=== PATIENT | female | born 1950 | race African-American/Black ===

== ENCOUNTER 2018-11-29 10:13 | Emergency (ER) | payer MEDICARE, MEDICAID ==
[~2018-11-29] VITALS: Ht 165.1 cm; Wt 69.4 kg
[~2018-11-29 10:13] MED LIST: elavil
[2018-11-29 11:11] VITALS: BP 130/62
[2018-11-29] MEDS ORDERED: KETOROLAC TROMETH 30 MG/ML 1ML VIAL IM ONE (11:15)
== END 2018-11-29 12:01 | disposition home or self-care (01) ==
LOC: ER 10:25
DX: S20.212A Contusion of left front wall of thorax, initial encounter (principal); F17.210 Nicotine dependence, cigarettes, uncomplicated; Z90.710 Acquired absence of both cervix and uterus; W18.2XXA Fall in (into) shower or empty bathtub, initial encounter; Y93.89 Activity, other specified; Y92.89 Other specified places as the place of occurrence of the external cause; Y99.8 Other external cause status
CPT/HCPCS: 71101; 96372; 99283; J1885

== ENCOUNTER 2019-05-20 12:15 | Emergency (ER) | payer OTHER, MEDICAID ==
[~2019-05-20] VITALS: Ht 165.1 cm; Wt 71.2 kg
[2019-05-20 12:54] LABS: Hematocrit 38.8 % (36.0-46.0); Hemoglobin 12.8 g/dL (12.2-16.2); Mean Corpuscular Hemoglobin 28.6 pg (28.0-32.0); Mean Corpuscular Volume 86.4 fL (80.0-100.0); Platelet Count (auto) 142 10^3/uL (140-450); White Blood Cell 4.2 10^3/uL (4.4-10.8)
[2019-05-20 12:57] LABS: Band Neutrophils % (manual) 0; Blast Cells 0; Metamyelocytes % 0; Myelocytes % 0; Promyelocytes % 0
[2019-05-20 13:13] LABS: Alanine Aminotransferase 30 U/L (13-56); Albumin 3.4 g/dL (3.4-5.0); Anion Gap 8 (5-15); Aspartate Aminotransferase 41 U/L (15-37); BUN/Creatinine Ratio 13.6; Blood Urea Nitrogen 19 mg/dL (7-18); Calcium 8.6 mg/dL (8.5-10.1); Carbon Dioxide 29 mmol/L (21-32); Chloride 105 mmol/L (98-107); GFR African American 48 mL/min; GFR Non-African American 39 mL/min; Glucose 81 mg/dL (74-106); Sodium 142 mmol/L (136-145)
[2019-05-20 13:15] LABS: Basophils % (manual) 1 (0.0-2.0); Eosinophils % (manual) 6 (0-7); Lymphocytes % (manual) 48 (10.0-50.0); Monocytes % (manual) 12 (0-12); Reactive Lymphocytes 1
[2019-05-20 13:16] LABS: Potassium 2.9 mmol/L (3.5-5.1)
[2019-05-20 13:18] LABS: Alkaline Phosphatase 73 U/L (45-117); Bilirubin, Total 0.8 mg/dL (0.2-1.0); Total Protein 7.5 g/dL (6.4-8.2)
[2019-05-20] MEDS ORDERED: POTASSIUM EFFERVESENT TAB 25 MEQ PO ONE (13:30)
[2019-05-20 18:19] VITALS: BP 140/85
== END 2019-05-20 19:08 | disposition home or self-care (01) ==
LOC: ER 12:15 → EDUNIT# 12:15 → EDBD 12:15 → ER 19:08
DX: S00.03XA Contusion of scalp, initial encounter (principal); F17.210 Nicotine dependence, cigarettes, uncomplicated; Z88.0 Allergy status to penicillin; W19.XXXA Unspecified fall, initial encounter; Y93.89 Activity, other specified; Y92.89 Other specified places as the place of occurrence of the external cause; Y99.8 Other external cause status
CPT/HCPCS: 36415; 70450; 71045; 80053; 84484; 85007; 85027

== ENCOUNTER 2019-11-27 12:59 | Emergency (ER) | payer OTHER, MEDICAID ==
[~2019-11-27] VITALS: Ht 165.1 cm; Wt 71.2 kg
[2019-11-27 17:18] VITALS: BP 144/112
== END 2019-11-27 17:40 | disposition home or self-care (01) ==
LOC: ER 12:59 → EDBD 12:59 → EDUNIT# 12:59 → ER 17:40
DX: M16.12 Unilateral primary osteoarthritis, left hip (principal); F17.210 Nicotine dependence, cigarettes, uncomplicated; Z88.0 Allergy status to penicillin
CPT/HCPCS: 73502; 73700

== ENCOUNTER 2020-01-26 15:25 | Emergency (ER) | payer OTHER, MEDICAID ==
[~2020-01-26] VITALS: Ht 165.1 cm; Wt 77.1 kg
[2020-01-26 15:27] VITALS: BP 140/109
[2020-01-26] MEDS ORDERED: HYDROcodone-ACET 10/325MG TAB PO ONE (19:15)
[2020-01-26] MEDS ORDERED: methylPREDNISolone SOD SUCC 125 MG/2 ML VL IM ONE (20:00)
[2020-01-26] MEDS ORDERED: KETOROLAC TROMETH 60MG/2ML VIAL IM ONE (20:00)
== END 2020-01-26 21:38 | disposition home or self-care (01) ==
LOC: EDBD 15:25 → ER 15:25
DX: G54.4 Lumbosacral root disorders, not elsewhere classified (principal); M54.42 Lumbago with sciatica, left side; G31.9 Degenerative disease of nervous system, unspecified; Z88.0 Allergy status to penicillin; W18.39XA Other fall on same level, initial encounter; Y93.89 Activity, other specified; Y92.89 Other specified places as the place of occurrence of the external cause; Y99.8 Other external cause status
CPT/HCPCS: 70450; 72125; 72192; 93005; 96372; 99285; J1885; J2930

== ENCOUNTER 2020-08-11 13:35 | Emergency (ER) | payer OTHER, MEDICAID ==
[~2020-08-11] VITALS: Ht 170.2 cm; Wt 68.0 kg
[2020-08-11] MEDS ORDERED: ACETAMINOPHEN 325 MG TAB PO ONE (14:15)
[2020-08-11 16:11] VITALS: BP 110/66
== END 2020-08-11 16:05 | disposition home or self-care (01) ==
LOC: EDBD 13:35 → ER 13:35
DX: S16.1XXA Strain of muscle, fascia and tendon at neck level, initial encounter (principal); S00.511A Abrasion of lip, initial encounter; S09.8XXA Other specified injuries of head, initial encounter; F17.210 Nicotine dependence, cigarettes, uncomplicated; Z90.710 Acquired absence of both cervix and uterus; Z88.0 Allergy status to penicillin; W01.0XXA Fall on same level from slipping, tripping and stumbling without subsequent striking against object, initial encounter; Y93.01 Activity, walking, marching and hiking; Y92.89 Other specified places as the place of occurrence of the external cause; Y99.8 Other external cause status
CPT/HCPCS: 70450; 70486; 72125

== ENCOUNTER 2024-09-03 00:50 | Inpatient (IN) | payer OTHER, MEDICARE, MEDICAID ==
[~2024-09-03] VITALS: Ht 160 cm; Wt 63.4 kg
[2024-09-03] VITALS (74 sets, daily range): BP systolic 72–131; BP diastolic 40–100; PULSE 72–134; RESP 11–38; TEMP 88.9–98.6; O2SAT 90–100
[~2024-09-03 00:50] MED LIST changes: +ALPR0.255 PO; +APIX5TAB PO; +ASCO1TAB27 PO; +ASPI-325 PO; +ATOR20TA50 PO; +DOCU-265 PO; +DONE1TAB88 PO; +FURO20TA4 PO; +GABA-1250 PO; +HYDR1TAB97 PO; +LISI20TA56 PO; +MULT-1018 PO; +OXYB5TAB14 PO; +SENN-111 PO; +TOLT1CAP29 PO
--- NOTE | 2024-09-03 01:14 | ED.PDOC ---
SOB-HPI HPI Comments 74-year-old female who came to ER by EMS shortness a breath. Per EMS, patient was picked up at [facility] wherein caregivers noted patient to be short of breath with chest pains. Unsure on how long the patient was short of breath. Was saturating at 90's at 4 lpm. Patient does have history of COPD and Alzheimer dementia Chief Complaint: Shortness of Breath Time Seen by MD: 01:13 Primary Care Provider: MURALI Reviewed notes: [employer] Field Agent Notes Information Source: Patient, Emergency Med Personnel Mode of Arrival: EMS Severity: Moderate Timing: Hours Duration: Since onset Context: At Rest, With Light Exertion PE Risk Factors: None History of: COPD Prehospital treatment: Oxygen Modifying Factors: Nothing Associated Signs and Symptoms: Chest Pain Quality: Aching, Tightness Radiation: No Radiation Location: Substernal Past Medical History PAST MEDICAL HISTORY: Alzheimer, Anxiety, COPD, Dementia, Depression Surgical History: Pt Confused CLIP WRAPPER History: Pt Confused Family History Family History: Pt Confused Social History Smoker: Pt Confused Alcohol: Pt Confused Drugs: Pt Confused Lives In: [facility] Unable to Obtain due to: Altered Mental Status, Dementia Physical Exam General Appearance: No Apparent Distress, Normal HEENT: Normal ENT Inspection, Pharynx Normal, TMs Normal Neck: Full Range of Motion, Non-Tender, Normal, Normal Inspection Respiratory: Chest Non-Tender, Lungs Clear, No Accessory Muscle Use, No Respiratory Distress, Normal Breath Sounds Cardiovascular: No Edema, No JVD, No Murmur, No Gallop, Normal Peripheral Pulses, Regular Rate/Rhythm Breast Exam: Deferred Gastrointestinal: No Organomegaly, Non Tender, No Pulsatile Mass, Normal Bowel Sounds, Soft Genitalia: Deferred Pelvic: Deferred Rectal: Deferred Extremities: No calf tenderness, Normal capillary refill, Normal inspection, Normal range of motion, Non-tender, No pedal edema Musculoskeletal : Apperance: Normal Neurologic: Alert, home health lvn II-XII nml as Tested, No Motor Deficits, Normal Affect, Normal Mood, No Sensory Deficits Cerebellar Function: Normal Reflexes: Normal Skin: Dry, Normal Color, Warm Lymphatic: No Adenopathy Was a procedure done? Was a procedure done?: No Differential Dx Differential Diagnosis: Asthma, Bronchitis, COPD, Myocardial infarction, Pneumonia, Respiratory Distress X-Ray, Labs, Meds, VS Vital Signs Date Time Temp Pulse Resp B/P (MAP) Pulse Ox O2 Delivery O2 Flow Rate FiO2 09/03/24 02:35 89 18 107/79 96 40 09/03/24 01:48 20 96 Bi-Pap+ 40 40 09/03/24 01:48 89 107/79 Facial BiPAP Mask 40 09/03/24 01:01 86 20 106/74 (85) 99 Lab Test 09/03/24 02:30 09/03/24 01:38 09/03/24 01:29 Range/Units Troponin I High Sensitivity 35 *H 39 *H </=34 ng/L White Blood Count 3.2 L 4.4-10.8 10^3/uL Red Blood Count 4.62 4.0-5.20 10^6/uL Hemoglobin 12.1 L 12.2-16.2 g/dL Hematocrit 37.8 36.0-46.0 % Mean Corpuscular Volume 81.8 80.0-100.0 fL Mean Corpuscular Hemoglobin 26.1 L 28.0-32.0 pg Mean Corpuscular Hemoglobin Concent 31.9 L 32.0-36.0 g/dL Red Cell Distribution Width 20.2 H 11.8-14.3 % Platelet Count 92 L 140-450 10^3/uL Mean Platelet Volume 8.9 6.9-10.8 fL Neutrophils (%) (Auto) 78.8 37.0-80.0 % Lymphocytes (%) (Auto) 13.6 10.0-50.0 % Monocytes (%) (Auto) 7.2 0.0-12.0 % Eosinophils (%) (Auto) 0.2 0.0-7.0 % Basophils (%) (Auto) 0.2 0.0-2.0 % Neutrophils # (Auto) 2.5 1.6-8.6 10 ^3/uL Lymphocytes # (Auto) 0.4 0.4-5.4 10 ^3/uL Monocytes # (Auto) 0.2 0-1.3 10 ^3/uL Eosinophils # (Auto) 0 0-0.8 10 ^3/uL Basophils # (Auto) 0 0-0.2 10 ^3/uL Nucleated Red Blood Cells 0.3 % Platelet Estimate Decreased Large Platelets Few Giant Platelets Few Anisocytosis (manual) Slight [place] Cells Few Sodium Level 140 136-145 mmol/L Potassium Level 4.9 3.5-5.1 mmol/L Chloride Level 104 98-107 mmol/L Carbon Dioxide Level 30 20-31 mmol/L Anion Gap 6 5-15 Blood Urea Nitrogen 12 9-23 mg/dL Creatinine 0.84 0.550-1.02 mg/dL Glomerular Filtration Rate Calc 72 >90 mL/min BUN/Creatinine Ratio 14.3 10.0-20.0 Serum Glucose 105 74-106 mg/dL Lactic Acid Level 1.7 0.4-2.0 mmol/L Calcium Level 9.9 8.7-10.4 mg/dL Total Bilirubin 0.9 0.2-1.0 mg/dL Aspartate Amino Transferase (AST) 46 H 13-40 U/L Alanine Aminotransferase (ALT) 27 7-40 U/L Alkaline Phosphatase 92 46-116 U/L B-Type Natriuretic Peptide 82.77 0-100 pg/mL Total Protein 7.5 5.7-8.2 g/dL Albumin 4.1 3.2-4.8 g/dL Blood Gas Specimen Type Venous Blood Gas Sample Site Vbg - n/a Blood Gas Patient Temperature 37.0 Arterial Blood Date Drawn Luis Test N/a Venous Blood pH 7.192 *L 7.320-7.430 Venous Blood pCO2 at Patient Temp 77.2 *H 38.0-54.0 mmHg Venous Blood pO2 at Patient Temp < 36.5 23.0-48.0 mmHg Venous Blood HCO3 29.0 22.0-29.0 mmol/L Venous Blood Base Excess -1.5 -2.0-3.0 mmol/L Blood Gas Liter Flow 3.00 Blood Gas Modality Nasal cannula FiO2 % 32.0 Blood Gas Critical Value Read Back Yes Blood Gas Notified Whom Dr. lomas Blood Gas Notified Time [id number] Blood Gas Notified By Panel Raiser Operator ronnell garcia Current Medications Medications (Trade) Dose Ordered Sig/Blanche Route Start Time Stop Time Status Last Admin Methylprednisolone Sodium Succinate (Solu Medrol) 80 mg ONCE ONCE IV 09/03/24 01:15 09/03/24 01:16 DC 09/03/24 01:15 Albuterol (Ventolin Medneb) 5 mg ONCE ONCE NEB 09/03/24 01:15 09/03/24 01:16 DC 09/03/24 01:55 Ipratropium [place] (Atrovent Medneb) 0.5 mg ONCE ONCE NEB 09/03/24 01:15 09/03/24 01:16 DC 09/03/24 01:54 Time of 1ST Reevaluation: 01:05 Reevaluation 1ST: Unchanged Patient Education/Counseling: Other (Patient has dementia), Pt Unresponsive Family Education/Counseling: No Family Present Sepsis focused exam: focus exam completed (In the initial resuscitation at l east 30 mL/kg of IV crystalloid fluid was NOT given within the first 3 hr due to concerns of fluid overload), time: (0300) Sepsis Sepsis Reasesment Focused Exam Sepsis focused exam: focus exam completed (In the initial resuscitation at least 30 mL/kg of IV crystalloid fluid was NOT given within the first 3 hr due to concerns of fluid overload), time: (030) Orders: Laboratory Tests 09/03/24 01:38: Lactic Acid Level 1.7 Departure 1 Departure Time of Disposition: 03:17 Impression: Primary Impression: Respiratory failure with hypoxia and hypercapnia Additional Impressions: COPD with acute exacerbation Pneumonia Dementia Disposition: ADMITTED INPATIENT Condition: Guarded Discharged With: Self Comments 74F with Acute COPD Exacerbation and Respiratory Failure Chief Complaint: Shortness of breath History of Present Illness: 74-year-old female with known history of COPD and dementia, who presents from her [facility] via [facility] with progressive shortness of breath over the past two days. The patient's symptoms have been worsening despite her usual medications. She was brought to the ED for further evaluation and management of her respiratory symptoms. Review of Systems: Constitutional: Unable to obtain detailed ROS due to dementia Respiratory: Positive for shortness of breath and wheezing All other systems: Limited review due to patient's cognitive status Medications: Unable to obtain complete medication list due to patient's residence at care facility Allergies: No known allergies documented in available records Past Medical History: 1. Chronic Obstructive Pulmonary Disease (COPD) 2. Alzheimer's Dementia 3. Possible cardiac history given elevated troponin Vital Signs: Vital signs not provided in pattern grader cutter Physical Exam: General: Elderly female in respiratory distress Respiratory: Wheezing noted bilaterally in all lung coy Other systems: Limited examination documented Lab Results: CBC: - WBC: 3.2 (Low) - Platelets: 92 (Low) ABG: - pH: 7.192 (Low) - pCO2: 77 (High) Cardiac markers: - Troponin: 39 (Borderline elevated) - BNP: 83 (Normal) Chemistry panel: Unremarkable Imaging and Other Relevant Results: Chest Imaging: - Small left pleural effusion - Left basal opacities concerning for pneumonia Medical Decision Making: Summary Statement: 74-year-old female with history of COPD and dementia presenting with acute respiratory failure, found to have COPD exacerbation complicated by left lower lobe pneumonia. Problem List: 1. Acute COPD exacerbation 2. Respiratory failure with hypoxia and hypercapnia 3. Left lower lobe pneumonia 4. Alzheimer's dementia 5. Leukopenia and thrombocytopenia Differential Diagnosis: COPD exacerbation, Community-acquired pneumonia, Acute heart failure, Pulmonary embolism, Acute coronary syndrome ED Course: Patient received breathing treatments, Solu-Medrol, was started on BiPAP with good tolerance. Initiated on IV antibiotics (Rocephin and azithromycin) for pneumonia. Decision made to admit for further management. Assessment and Plan: 1. Acute COPD Exacerbation with Respiratory Failure: - Continue BiPAP support - Continue systemic steroids (Solu-Medrol) - Scheduled bronchodilator treatments 2. Left Lower Lobe Pneumonia: - Continue IV antibiotics (Ceftriaxone and Azithromycin) - Monitor respiratory status 3. Leukopenia and Thrombocytopenia: - Trend CBC - Consider Hematology consultation if counts remain low 4. Disposition: - Admit to hospital medicine service - Requires intensive monitoring due to respiratory failure Billing Information: ICD-10: J44.1 - COPD with acute exacerbation ICD-10: J96.21 - Acute respiratory failure with hypoxia and hypercapnia ICD-10: J18.9 - Left lower lobe pneumonia ICD-10: G30.9 - Alzheimer's disease, unspecified ICD-10: D69.6 - Thrombocytopenia, unspecified Critical Care Note Critical Care Time?: Yes (35 min-critical care time only) Critical care comment: Shortness of breath Total critical care time: Approximately 36 minutes Due to a high probability of clinically significant, life threatening deterioration, the patient required my highest level of preparedness to intervene emergently and I personally spent this critical care time directly and personally managing the patient. This critical care time included obtaining a history; examining the patient; pulse oximetry; ordering and review of studies; arranging urgent treatment with development of a management plan; evaluation of patient's response to treatment; frequent reassessment; and, discussions with other providers. This critical care time was performed to assess and manage the high probability of imminent, life-threatening deterioration that could result in multi-organ failure. It was exclusive of separately billable procedures and treating other patients. Stability Stability form required: No Heart Score Heart Score: Heart Score Response (Comments) Value History Moderate Suspicious 1 EKG Repolarization Disturb 1 Age >65 2 Risk Factors >3 or Hx ASHD 2 Troponin Normal limit 0 Total 6 I personally scribed for MARGARET LOMAS MD ([email or web address]) on 09/03/24 at 01:14. Electronically submitted by Dieudonne Rodgers ([email or web address]). MARGARET LOMAS MD September 03, 2024 01:14
[2024-09-03] MEDS: methylPREDNISolone SOD SUCC 125 MG/2 ML VL IV ONE (01:15)
[2024-09-03 01:44] LABS: Basophils # (auto) 0 10 ^3/uL (0-0.2); Eosinophils # (auto) 0 10 ^3/uL (0-0.8); Eosinophils % (auto) 0.2 % (0.0-7.0); Lymphocytes # (auto) 0.4 10 ^3/uL (0.4-5.4); Monocytes # (auto) 0.2 10 ^3/uL (0-1.3)
[2024-09-03 01:45] LABS: Basophils % (auto) 0.2 % (0.0-2.0); Hematocrit 37.8 % (36.0-46.0); Hemoglobin 12.1 g/dL (12.2-16.2); Lymphocytes % (auto) 13.6 % (10.0-50.0); Mean Corpuscular Hemoglobin 26.1 pg (28.0-32.0); Mean Corpuscular Hgb Conc. 31.9 g/dL (32.0-36.0); Mean Corpuscular Volume 81.8 fL (80.0-100.0); Monocytes % (auto) 7.2 % (0.0-12.0); Neutrophils # (auto) 2.5 10 ^3/uL (1.6-8.6); Neutrophils % (auto) 78.8 % (37.0-80.0); Nucleated Red Blood Cells % 0.3 %; Platelet Count (auto) 92 10^3/uL (140-450); Red Blood Cells 4.62 10^6/uL (4.0-5.20); Red Cell Distribution Width 20.2 % (11.8-14.3); White Blood Cell 3.2 10^3/uL (4.4-10.8)
[2024-09-03] MEDS: IPRATROPIUM BROM 0.5 MG/2.5ML INH SOL NEB ONE (01:54)
[2024-09-03] MEDS: ALBUTEROL SULF 2.5 MG/0.5ML(0.5%) NEB SOLN NEB ONE (01:55)
--- NOTE | 2024-09-03 02:02 | DVH ---
EXAM: XY CHEST PORTABLE CLINICAL HISTORY: SOB TECHNIQUE: Single AP view of the chest WID: COMPARISON: None FINDINGS: Lines and tubes: None Chest: Cardiomegaly and pulmonary vascular congestion. Calcified plaque projects over the aortic arch. Small left pleural effusion and left basilar opacities. No pneumothorax. The osseous structures are grossly intact. IMPRESSION: 1. Mild cardiomegaly with pulmonary vascular congestion. 2. Small left pleural effusion and left basilar opacities which could reflect atelectasis or pneumoni a
[2024-09-03 02:04] LABS: Alanine Aminotransferase 27 U/L (7-40); Albumin 4.1 g/dL (3.2-4.8); Alkaline Phosphatase 92 U/L (46-116); Anion Gap 6 (5-15); BUN/Creatinine Ratio 14.3 (10.0-20.0); Bilirubin, Total 0.9 mg/dL (0.2-1.0); Blood Urea Nitrogen 12 mg/dL (9-23); Calcium 9.9 mg/dL (8.7-10.4); Carbon Dioxide 30 mmol/L (20-31); Chloride 104 mmol/L (98-107); Glucose 105 mg/dL (74-106); Potassium 4.9 mmol/L (3.5-5.1); Sodium 140 mmol/L (136-145); Total Protein 7.5 g/dL (5.7-8.2)
[2024-09-03 02:15] LABS: Aspartate Aminotransferase 46 U/L (13-40)
[2024-09-03 02:33] LABS: Anisocytosis Slight; Giant Platelets Few; Large Platelets FEW; Platelet Estimate Decreased
[2024-09-03] MEDS: AZITHROMYCIN 500MG/ 250ML 250 ML IV ONE (03:15)
[2024-09-03] MEDS: cefTRIAXone 1GM/50ML D5W 50 ML IV ONE (03:15)
[2024-09-03 03:23] LABS: Base Excess -2.9 mmol/L (-2.0-3.0)
--- NOTE | 2024-09-03 03:24 | ECG ---
[facility] Test Date: 2024-09-03 Test Time: 00:57:20 Pat Name: SIMRAN VEGA Department: ED Room: 0266 Gender: F Proof Passer: JOHNSON : 1950 Requested By: MARGARET LOMAS Order Number: [id number] Reading MD: Nish Bill Measurements Intervals [place] Rate: 97 P: 0 [place]: 0 QRS: 75 QRSD: 95 T: 59 QT: 393 QTc: 500 Interpretive Statements Atrial fibrillation Anterior infarct, old Electronically Signed On 09-06-2024 12:01:02 PDT by Nish Bill Please click the below link to view image of tracing.
[2024-09-03] MEDS ORDERED: DOCUSATE SOD 100 MG CAP PO PRN (03:45)
[2024-09-03] MEDS ORDERED: IPRATROPIUM BROM 0.5 MG/2.5ML INH SOL NEB PRN (03:45)
[2024-09-03] MEDS ORDERED: ONDANSETRON HCL 4 MG/2 ML VIAL IV PRN ×2 (03:45→04:15)
[2024-09-03] MEDS ORDERED: ACETAMINOPHEN 325 MG TAB PO PRN (03:45)
[2024-09-03] MEDS ORDERED: ALBUTEROL SULF 2.5 MG/0.5ML(0.5%) NEB SOLN NEB PRN (03:45)
[2024-09-03] MEDS ORDERED: HYDROcodone-ACET 5/325MG TAB PO PRN (03:45)
[2024-09-03] MEDS ORDERED: ENOXAPARIN SOD 60 MG/0.6 ML SYRINGE SC ONE (04:15)
[2024-09-03] MEDS: CEFEPIME 1GM/ 50ML 50 ML IV ONE (04:15)
[2024-09-03] MEDS: DOXYCYCLINE 100MG/100ML 100 ML IV ONE (04:15)
[2024-09-03] MEDS: PANTOPRAZOLE 40 MG/10 ML VIAL INJ IV ONE (04:15)
--- NOTE | 2024-09-03 04:18 | DVHHP2 ---
History of Present Illness History of Present Illness Patient is 74 years old female with past medical history of COPD, Alzheimer's dementia, anxiety, depression was brought in by EMS from [facility] due to acute hypoxia. Patient with dementia and confused. Information was gathered from chart reviewing and talking to the nursing staff. Patient developed hypoxia yesterday around 4:00 p.m. at the [facility] where she was dysarthric and had short of breath. Patient's history of dementia, baseline not known, on arrival patient was desaturating to 70 recent, patient was put on NC O2 2 L/min, initial VBG revealed respiratory acidosis with hypercapnia. Patient was put on BiPAP. Initial lab workup revealed leukopenia with a WBC 3.2, hemoglobin 12.1, RDW 20.2, thrombocytopenia with platelet 92, trop I 39> 35. D-Dimer- 2.1. Initial VBG revealed pH 7.19, pCO2 77.2, bicarbonate 29, PO2 less than 36, repeat ABG revealed pH 7.28, pCO2 52, PO2 90.1, bicarbonate 24. CXR revealed bilateral pulmonary opacity right> left. EEG atrial fibrillation Review of the details could not be found as patient is confused and also BiPAP. Patient with a history of dementia. 12/04/24-called [place], [place] [phone], no one picked up call Also called patient's next of kin Mayte Henry, s2, did not order picker call, left voice message In the morning patient also talked to patient, patient reported she was feeling short of breath for 1 day. Repeat ABG revealed pH 7.19, pCO2 78.9, PO2 72.9, bicarbonate 29.5. Patient wit h confusion. Patient was intubated Past Medical History COPD, Alzheimer's dementia, anxiety, depression Past Surgical History Patient with confusion details could not be found Past Social History Patient with confusion details could not be found Review of Systems Review of Systems Patient with a confusion details of the other system could not be reviewed Allergies: Coded Allergies: Penicillins (Verified Allergy, Unknown, 11/27/19) Uncoded Allergies: PENICILLIN (Allergy, Unknown, unknown, 11/27/19) Medications Current Medications Medications Dose Ordered Sig/Blanche Route Start Time Stop Time Status Last Admin Dose Admin Methylprednisolone Sodium Succinate 40 mg Q8HR IV 09/03/24 06:00 Albuterol 2.5 mg Q4HPRN PRN NEB 09/03/24 03:45 Ipratropium [place] 0.5 mg Q4HPRN PRN NEB 09/03/24 03:45 Azithromycin 250 ml @ 125 mls/hr DAILY IV 09/03/24 10:00 Sodium Chloride 10 ml Q8HR IV 09/03/24 06:00 Acetaminophen/ Hydrocodone Bitart 1 tab Q4HP PRN PO 09/03/24 03:45 Ondansetron HCl 4 mg Q4HP PRN IV 09/03/24 03:45 Docusate Sodium 100 mg BIDPRN PRN PO 09/03/24 03:45 Acetaminophen 650 mg Q6HP PRN PO 09/03/24 03:45 Sodium Chloride 10 ml Q8HR IV 09/03/24 06:00 Ondansetron HCl 4 mg Q4HP PRN IV 09/03/24 04:15 Cefepime HCl 50 ml @ 12.5 mls/hr Q8HR IV 09/03/24 06:00 UNV Doxycycline Hyclate 100 ml @ 50 mls/hr Q12H IV 09/03/24 04:15 UNV Pantoprazole Sodium 40 mg DAILY IV 09/03/24 10:00 UNV Enoxaparin Sodium 60 mg Q12HR SC 09/03/24 10:00 UNV Exam Vital Signs Vital Signs Date Time Temp Pulse Resp B/P (MAP) Pulse Ox O2 Delivery O2 Flow Rate FiO2 09/03/24 03:26 76 101/71 97 Facial BiPAP Mask 40 09/03/24 03:01 26 Exam General examination- patient with confusion HEENT- PEERLA, no acute nasal discharge Cardiovascular- S1-S2 audible, rate and rhythm regular, no murmur Respiratory-bilateral lung crackles left> right Gastrointestinal-nontender, bowel sound+. Nondistended Musculoskeletal-leg swelling Lower extremity- bilateral leg edema++++ Neurological details could not be assessed due to patient's confusional state Psychiatry- patient with confusion Skin- no acute rash or purpura Labs/Xrays Labs Test 09/03/24 03:18 09/03/24 02:30 09/03/24 01:38 09/03/24 01:29 Range/Units Blood Gas Specimen Type Arterial Blood Gas Sample Site Left radial Blood Gas Patient Temperature 37.0 Arterial Blood Date Drawn [id number] Arterial Blood pH 7.283 L 7.350-7.450 Arterial Blood Partial Pressure CO2 52.4 H 32.0-45.0 mmHg Arterial Blood Partial Pressure O2 90.1 83.0-108.0 mmHg Arterial Blood HCO3 24.2 21.0-28.0 mmol/L Arterial Blood Oxygen Saturation 95.7 94.0-98.0 % Arterial Blood Base Excess -2.9 L -2.0-3.0 mmol/L Arterial Blood Oxyhemoglobin 94.1 94.0-98.0 % Arterial Blood Carboxyhemoglobin 1.1 0.5-1.5 % Arterial Blood Methemoglobin 0.6 0.0-1.5 % Luis Test Yes Blood Gas Total Hemoglobin 11.90 L 12.0-16.0 g/dL Blood Gas Set Respiration Rate 12.0 Blood Gas Modality Mask - bipap FiO2 % 40.0 Blood Gas EPAP 5 Blood Gas IPAP 15 Troponin I High Sensitivity 35 *H </=34 ng/L White Blood Count 3.2 L 4.4-10.8 10^3/uL Red Blood Count 4.62 4.0-5.20 10^6/uL Hemoglobin 12.1 L 12.2-16.2 g/dL Hematocrit 37.8 36.0-46.0 % Mean Corpuscular Volume 81.8 80.0-100.0 fL Mean Corpuscular Hemoglobin 26.1 L 28.0-32.0 pg Mean Corpuscular Hemoglobin Concent 31.9 L 32.0-36.0 g/dL Red Cell Distribution Width 20.2 H 11.8-14.3 % Platelet Count 92 L 140-450 10^3/uL Mean Platelet Volume 8.9 6.9-10.8 fL Neutrophils (%) (Auto) 78.8 37.0-80.0 % Lymphocytes (%) (Auto) 13.6 10.0-50.0 % Monocytes (%) (Auto) 7.2 0.0-12.0 % Eosinophils (%) (Auto) 0.2 0.0-7.0 % Basophils (%) (Auto) 0.2 0.0-2.0 % Neutrophils # (Auto) 2.5 1.6-8.6 10 ^3/uL Lymphocytes # (Auto) 0.4 0.4-5.4 10 ^3/uL Monocytes # (Auto) 0.2 0-1.3 10 ^3/uL Eosinophils # (Auto) 0 0-0.8 10 ^3/uL Basophils # (Auto) 0 0-0.2 10 ^3/uL Nucleated Red Blood Cells 0.3 % Platelet Estimate Decreased Large Platelets Few Giant Platelets Few Anisocytosis (manual) Slight [place] Cells Few Sodium Level 140 136-145 mmol/L Potassium Level 4.9 3.5-5.1 mmol/L Chloride Level 104 98-107 mmol/L Carbon Dioxide Level 30 20-31 mmol/L Anion Gap 6 5-15 Blood Urea Nitrogen 12 9-23 mg/dL Creatinine 0.84 0.550-1.02 mg/dL Glomerular Filtration Rate Calc 72 >90 mL/min BUN/Creatinine Ratio 14.3 10.0-20.0 Serum Glucose 105 74-106 mg/dL Lactic Acid Level 1.7 0.4-2.0 mmol/L Calcium Level 9.9 8.7-10.4 mg/dL Total Bilirubin 0.9 0.2-1.0 mg/dL Aspartate Amino Transferase (AST) 46 H 13-40 U/L Alanine Aminotransferase (ALT) 27 7-40 U/L Alkaline Phosphatase 92 46-116 U/L B-Type Natriuretic Peptide 82.77 0-100 pg/mL Total Protein 7.5 5.7-8.2 g/dL Albumin 4.1 3.2-4.8 g/dL Venous Blood pH 7.192 *L 7.320-7.430 Venous Blood pCO2 at Patient Temp 77.2 *H 38.0-54.0 mmHg Venous Blood pO2 at Patient Temp < 36.5 23.0-48.0 mmHg Venous Blood HCO3 29.0 22.0-29.0 mmol/L Venous Blood Base Excess -1.5 -2.0-3.0 mmol/L Blood Gas Liter Flow 3.00 Blood Gas Critical Value Read Back Yes Blood Gas Notified Whom Dr. paz Blood Gas Notified Time [id number] Blood Gas Notified By Interior Assemblies Installer ronnell garcia Assessment/Plan Assessment/Plan Assessment and plan- Metabolic encephalopathy likely due to pneumonia/acute exacerbation of COPD Sepsis likely due to pneumonia Acute hypoxic respiratory failure likely due to pneumonia/acute exertional COPD Acute pneumonia Gram-positive versus Gram-negative Acute exacerbation of COPD Acute hypoxic hypercapnic respiratory failure NSTEMI likely type 2 likely due to demand lead ischemia Leukopenia under evaluation Thrombocytopenia Atrial fibrillation Bilateral leg edema, rule out DVT/CHF Alzheimer's dementia Depression Anxiety initial VBG revealed respiratory acidosis with hypercapnia. Patient was put on BiPAP. Initial lab workup revealed leukopenia with a WBC 3.2, hemoglobin 12.1, RDW 20.2, thrombocytopenia with platelet 92, Trop I 39> 35. Initial VBG revealed pH 7.19, pCO2 77.2, bicarbonate 29, PO2 less than 36, repeat ABG revealed pH 7.28, pCO2 52, PO2 90.1, bicarbonate 24. CXR revealed bilateral pulmonary opacity right> left. EEG atrial fibrillation D-dimer 2.1 Plan Ordered Doppler study of the lower extremity to rule out DVT-due for DVT Ordered CT angio of chest to rule out pulmonary embolism Ordered D-dimer, TSH, echo 2D Ordered COVID-19, influenza type 1 and type 2 Ordered repeat ABG Ordered repeat chest x-ray Pending UDS, serum alcohol, Ordered blood culture, urine culture, sputum culture, MRSA screening Ordered cefepime and doxycycline Ordered methylprednisolone 40 mg IV b.i.d. Holding Lovenox for now as patient has thrombocytopenia, pending Doppler study of the lower extremity to rule out DVT Ordered nebulization q.4h with albuterol and ipratropium bromide 12/04/24-called [place], [place] [phone], no one picked up call Also called patient's next of kin Mayte Henry, m6, did not order picker call, left voice message In the morning patient also talked to patient, patient reported she was feeling short of breath for 1 day. Repeat ABG revealed pH 7.19, pCO2 78.9, PO2 72.9, bicarbonate 29.5. Patient with confusion. Patient was intubated Goals of care, Code status ; discussed with >15 minutes PUD prophylaxis: Pantoprazole DVT prophylaxis: Patient With thrombocytopenia Plan discussed with Dr. Murcia , nursing staff, Total time spent on patient evaluation, chart review, assessment and plan, discussion discussion >35 minutes Plan discussed with: Other (RN) My Orders Orders - JOELLE COTTO RESIDENT Procedure Category Date Status Time Admit ADMIT 09/03/24 Transmitted 04:02 Code Status CODE 09/03/24 Transmitted 04:02 Sodium Chloride Lock PHA 09/03/24 In Process (Saline Lock Ns) 06:00 Ondansetron Hcl PHA 09/03/24 In Process (Zofran) 04:15 Npo (Nothing By DIET 09/03/24 Transmitted Mouth) Diet Breakfast * Swallow Request ST 09/03/24 Transmitted 04:02 Echo 2d Mode Cardiac US 09/03/24 Logged DOP 04:02 Notify Of Changes HALEY 09/03/24 In Process From Base 04:02 Tool Filer Hand For HALEY 09/03/24 In Process 24 Hours 04:02 Bilat Lower Dvt US 09/03/24 Logged 04:04 D-Dimer LAB 09/03/24 In Process 04:04 Thyroid Stimulating LAB 09/03/24 In Process Hormone 04:04 Magnesium LAB 09/03/24 In Process 04:04 Covid19 Antigen Rosalinda LAB 09/03/24 Logged Rapid Influenza A&B LAB 09/03/24 Logged 04:05 Hiv 1&2 Antibody LAB 09/03/24 Logged 04:05 Chest Xray 1 View XY 09/03/24 Logged 06:00 Urine Bacterial PAIGE 09/03/24 Logged Culture 04:06 Respiratory Culture PAIGE 09/03/24 Logged W/ Gs 04:06 Urinalysis LAB 09/03/24 Logged 04:06 Drug Screen LAB 09/03/24 Logged 04:06 Blood Alcohol LAB 09/03/24 In Process 04:06 Mrsa Screen PAIGE 09/03/24 Logged 04:09 Abg W/ Co-Ox RT 09/03/24 Logged 06:00 Cefepime 1gm/ 50ml PHA 09/03/24 Logged (Maxipime 1gm/50ml) 06:00 Cefepime 1gm/ 50ml PHA 09/03/24 In Process (Maxipime 1gm/50ml) 04:15 Doxycycline PHA 09/03/24 In Process 100mg/100ml 04:15 Doxycycline PHA 09/03/24 Logged 100mg/100ml 04:15 Pantoprazole PHA 09/03/24 Logged (Protonix) 10:00 Pantoprazole PHA 09/03/24 In Process (Protonix) 04:15 Enoxaparin Sodium PHA 09/03/24 Logged (Lovenox) 04:15 Enoxaparin Sodium PHA 09/03/24 Logged (Lovenox) 10:00 Date of Service: September 03, 2024 Billing Provider: HAYLEY MURCIA MD Common Visit Codes: [id number] INP/OBS CARE (HIGH) Secondary Visit Codes: [id number] CARE PLAN 30 MINUTES JOELLE COTTO RESIDENT September 03, 2024 04:18
[2024-09-03] MEDS ORDERED: IPRATROPIUM BROM 0.5 MG/2.5ML INH SOL NEB SCH (04:45)
[2024-09-03] MEDS ORDERED: ALBUTEROL SULF 2.5 MG/0.5ML(0.5%) NEB SOLN NEB SCH (04:45)
[2024-09-03 04:55] LABS: Basophils # (auto) 0 10 ^3/uL (0-0.2); Eosinophils # (auto) 0 10 ^3/uL (0-0.8); Monocytes # (auto) 0.3 10 ^3/uL (0-1.3); Nucleated Red Blood Cells % 0.2 %; White Blood Cell 2.6 10^3/uL (4.4-10.8)
[2024-09-03 04:57] LABS: Basophils % (auto) 0.4 % (0.0-2.0); Eosinophils % (auto) 0.3 % (0.0-7.0); Hematocrit 33.4 % (36.0-46.0); Hemoglobin 10.5 g/dL (12.2-16.2); Lymphocytes # (auto) 0.2 10 ^3/uL (0.4-5.4); Lymphocytes % (auto) 7.5 % (10.0-50.0); Mean Corpuscular Hgb Conc. 31.6 g/dL (32.0-36.0); Mean Corpuscular Volume 82.3 fL (80.0-100.0); Monocytes % (auto) 10.7 % (0.0-12.0); Neutrophils # (auto) 2.1 10 ^3/uL (1.6-8.6); Neutrophils % (auto) 81.1 % (37.0-80.0); Platelet Count (auto) 87 10^3/uL (140-450); Red Blood Cells 4.05 10^6/uL (4.0-5.20); Red Cell Distribution Width 20.2 % (11.8-14.3)
[2024-09-03 05:25] LABS: Alanine Aminotransferase 25 U/L (7-40); Albumin 3.6 g/dL (3.2-4.8); Alkaline Phosphatase 81 U/L (46-116); Anion Gap 6 (5-15); BUN/Creatinine Ratio 15.4 (10.0-20.0); Bilirubin, Total 0.8 mg/dL (0.2-1.0); Blood Urea Nitrogen 12 mg/dL (9-23); Calcium 9.4 mg/dL (8.7-10.4); Carbon Dioxide 29 mmol/L (20-31); Chloride 105 mmol/L (98-107); Glucose 102 mg/dL (74-106); Sodium 140 mmol/L (136-145); Total Protein 6.7 g/dL (5.7-8.2)
[2024-09-03 05:37] LABS: Folate (Folic Acid) 38.61 ng/mL (>5.38)
[2024-09-03 05:37] LABS: Aspartate Aminotransferase 40 U/L (13-40)
[2024-09-03 05:44] LABS: COVID19 ANTIGEN SOFIA FIA NEGATIVE (NEGATIVE); Rapid Influenza A Negative (Negative); Rapid Influenza B Negative (Negative)
[2024-09-03] MEDS ORDERED: SODIUM CHLOR 0.9% PF (SALINE LOCK) 10ML VIAL/SYR IV SCH (06:00)
[2024-09-03] MEDS: SODIUM CHLOR 0.9% PF (SALINE LOCK) 10ML VIAL/SYR IV SCH (06:00)
[2024-09-03] MEDS ORDERED: methylPREDNISolone SOD SUCC 40 MG/ML VL IV SCH (06:00)
--- NOTE | 2024-09-03 07:05 | DVH ---
EXAM: US Duplex Bilateral Lower Extremities Veins CLINICAL INDICATION: BI LATERAL LEG SWELLING TECHNIQUE: Real-time duplex ultrasound scan of the bilateral lower extremity veins integrating B-mod e two-dimensional vascular structure, Doppler spectral analysis, color flow Doppler imaging and compr ession. COMPARISON: None FINDINGS: RIGHT DEEP VEINS: Unremarkable. No DVT in the right common femoral, femoral, proximal deep femoral or popliteal veins. The veins demonstrate normal color flow, are normally compressible, with normal phasic flow and/or augmentation response. RIGHT SUPERFICIAL VEINS: Unremarkable. No thrombus in the visualized right great saphenous vein. LEFT DEEP VEINS: Unremarkable. No DVT in the left common femoral, femoral, proximal deep femoral o r popliteal veins. The veins demonstrate normal color flow, are normally compressible, with normal p hasic flow and/or augmentation response. LEFT SUPERFICIAL VEINS: Unremarkable. No thrombus in the visualized left great saphenous vein. SOFT TISSUES: No acute findings. No popliteal cyst. OTHER FINDINGS: . IMPRESSION: No DVT.
[2024-09-03 07:12] LABS: Base Excess -0.6 mmol/L (-2.0-3.0)
[2024-09-03] MEDS: ROCURONIUM 10MG/ML 10ML VIAL IV ONE ×3 (07:27→07:40)
[2024-09-03] MEDS: ETOMIDATE (2MG/ML) 20ML VIAL IV ONE ×3 (07:27→07:34)
[2024-09-03] MEDS: IPRATROPIUM BROM 0.5 MG/2.5ML INH SOL NEB SCH ×2 (07:31→11:52)
[2024-09-03] MEDS: ALBUTEROL SULF 2.5 MG/0.5ML(0.5%) NEB SOLN NEB SCH (07:31)
[2024-09-03] MEDS: fentaNYL Drip 2500mCg/250mlNS 250 ML IV ONE (07:31)
[2024-09-03] MEDS: NOREPINEPHRINE 8 MG/250ML KIT 250 ML IV ONE (07:32)
[2024-09-03] MEDS: MIDAZOLAM DRIP 50 mg/50mL 50 ML IV ONE (07:32)
[2024-09-03] MEDS: MIDAZOLAM DRIP 50 mg/50mL 50 ML IV SCH (07:41)
[2024-09-03] MEDS: NOREPINEPHRINE 8 MG/250ML KIT 250 ML IV SCH (08:00)
[2024-09-03] MEDS: fentaNYL Drip 2500mCg/250mlNS 250 ML IV SCH (08:00)
[2024-09-03] MEDS: PROPOFOL 100 ML IV SCH (08:00)
[2024-09-03] MEDS: PHENYLEPHRINE IV 250 ML IV SCH (08:00)
--- NOTE | 2024-09-03 08:42 | DVH ---
CLINICAL INFORMATION: Congestive heart failure. TECHNIQUE: Single AP portable chest radiograph was obtained. COMPARISON: XY CHEST PORTABLE on DOS: 09/03/24 FINDINGS: Interval intubation, with the endotracheal tube distal tip approximatelyr 4.5 cm above the level of t he pancho. Distal tip of the enteric tube reaches the stomach, although the proximal fenestration of the enteric tube is at the level of the distal esophagus. Right internal jugular central venous rell ter reaches the distal SVC. Small left pleural effusion with overlying atelectasis and/or consolidati on. Likely small right pleural effusion. Unchanged cardiomegaly and slightly increased prominence of the pulmonary vasculature. No pneumothorax visualized, although portions of the lung apices are not c ompletely imaged within the [id number] of the exam. Overlying defibrillator pads are noted. IMPRESSION: 1. Satisfactory positioning of the endotracheal tube and right internal jugular central venous cathet er. 2. The proximal fenestration of the enteric tube is at the level of the distal esophagus, recommend a dvancement of the enteric tube by approximately 7 cm. 3. Small left pleural effusion with overlying atelectasis and/or consolidation and likely small right pleural effusion. 4. Cardiomegaly and prominence of the pulmonary vasculature.
[2024-09-03] MEDS: MAGNESIUM SULFATE 1GM/100ML 100 ML IV SCH (09:00)
[2024-09-03 09:23] LABS: Base Excess 1.1 mmol/L (-2.0-3.0)
[2024-09-03 09:49] LABS: Basophils # (auto) 0 10 ^3/uL (0-0.2); Eosinophils # (auto) 0 10 ^3/uL (0-0.8); Hematocrit 33.9 % (36.0-46.0); Lymphocytes # (auto) 0.1 10 ^3/uL (0.4-5.4); Monocytes # (auto) 0.2 10 ^3/uL (0-1.3); Neutrophils % (auto) 90.3 % (37.0-80.0); White Blood Cell 3.3 10^3/uL (4.4-10.8)
[2024-09-03 09:50] LABS: Alanine Aminotransferase 27 U/L (7-40); Albumin 3.6 g/dL (3.2-4.8); Alkaline Phosphatase 84 U/L (46-116); Anion Gap 10 (5-15); BUN/Creatinine Ratio 17.5 (10.0-20.0); Basophils % (auto) 0.9 % (0.0-2.0); Blood Urea Nitrogen 14 mg/dL (9-23); Calcium 10.1 mg/dL (8.7-10.4); Carbon Dioxide 25 mmol/L (20-31); Chloride 104 mmol/L (98-107); Glucose 97 mg/dL (74-106); Lymphocytes % (auto) 3.1 % (10.0-50.0); Magnesium 1.9 mg/dL (1.6-2.6); Mean Corpuscular Hemoglobin 26.1 pg (28.0-32.0); Mean Corpuscular Hgb Conc. 32.4 g/dL (32.0-36.0); Mean Corpuscular Volume 80.6 fL (80.0-100.0); Monocytes % (auto) 5.7 % (0.0-12.0); Nucleated Red Blood Cells % 0.3 %; Potassium 5.1 mmol/L (3.5-5.1); Red Cell Distribution Width 19.7 % (11.8-14.3); Sodium 139 mmol/L (136-145); Total Protein 6.7 g/dL (5.7-8.2)
[2024-09-03 09:51] LABS: Bilirubin, Total 0.9 mg/dL (0.2-1.0)
[2024-09-03 10:00] LABS: Platelet Count (auto) 89 10^3/uL (140-450)
[2024-09-03] MEDS ORDERED: ENOXAPARIN SOD 40 MG/0.4 ML SYRINGE SC SCH (10:00)
[2024-09-03] MEDS ORDERED: AZITHROMYCIN 500MG/ 250ML 250 ML IV SCH (10:00)
[2024-09-03] MEDS ORDERED: FAMOTIDINE (10MG/ML) 2ML VL IV SCH (10:00)
[2024-09-03] MEDS ORDERED: ENOXAPARIN SOD 60 MG/0.6 ML SYRINGE SC SCH (10:00)
[2024-09-03] MEDS ORDERED: VANCOMYCIN PER PHARMACY 0 MG IV SCH (10:00)
[2024-09-03 10:07] LABS: Aspartate Aminotransferase 44 U/L (13-40)
--- NOTE | 2024-09-03 10:19 | ED.PDOC ---
Was a procedure done? Was a procedure done?: Yes Sedation Sedation?: No Central Line Recorder of insertion practice: Observer Occupation of car wash attendant: Other (Resident physician), Name of car wash attendant (Dr Rockwell) Indication: Hypotension Room prepared for procedure: Yes At Home Independent Call Center Agent performed hand hygien: Yes Maximal sterile barrier precau: Mask/Eye shield, Sterile gown, Cap, Sterlie gloves, Large sterlie drape Skin Preparation: Chlorhexidine gluconate Skin preparation completely dr: Yes Insertion site: Right, Internal jugular Central line catheter type: [id number] dialysis Number of lumens: 3 Central line exchanged over a: Yes Antiseptic ointment applied to: Yes Post Assessment: Chest X-Ray, Proper placement, No Pneumothorax Informed consent obtained: No Risks/benefits/alt described: No Intubation Indication: Respiratory Insufficiency, Altered Mental Status Prep: Preoxygenation Pretreated with: Other (Etomidate) Medicated with: Other (Rocuronium) Intubation Approach: Orotracheal Intubation size: cm (8) Informed consent obtained: No Risks/benefits/alt described: No Notes Patient was acutely decompensating, hypoxic tachypneic and in acute respiratory failure.. I was called to the floor. I performed intubation and central line placement with Dr. ROCKWELL, resident physician. ERICA COSTA MD September 03, 2024 10:19
[2024-09-03 10:20] LABS: Lactic Acid w/Reflex 2.2 mmol/L (0.4-2.0)
[2024-09-03] MEDS: methylPREDNISolone SOD SUCC 40 MG/ML VL IV SCH (10:41)
[2024-09-03] MEDS: FUROSEMIDE 100 MG/10ML VIAL IV ONE (10:41)
[2024-09-03] MEDS: VANCOMYCIN 1GM/200ML PM 200 ML IV ONE (10:42)
[2024-09-03 11:37] LABS: Urine Bacteria None Seen /hpf (None Seen)
[2024-09-03] MEDS: LEVALBUTEROL HCL 1.25 MG/3 ML NEB NEB SCH (11:52)
[2024-09-03 11:53] LABS: Urine Blood Negative /uL (Negative); Urine Clarity Turbid (Clear); Urine Color Yellow (Yellow); Urine Hyaline Cast MOD /lpf (0 - 2); Urine Mucus FEW (None Seen); Urine Protein, UAD TRACE (Negative); Urine Specific Gravity 1.013 (1.001-1.035); Urine Squamous Epithelial Cell FEW /hpf (<5); Urine Urobilinogen Normal (Negative); Urine WBC 1 /HPF (0-5); Urine pH 8.5 (5.0-9.0)
[2024-09-03 11:59] LABS: Cannabinoid Screen, Urine Pos (NEGATIVE); Phencyclidine Screen, Urine Neg (NEGATIVE)
[2024-09-03 12:11] LABS: Amphetamine Screen, Urine Neg (NEGATIVE); Barbiturate Scree,Urine Neg (NEGATIVE); Benzodiazephine Screen, Urine Pos (NEGATIVE); Cocaine Screen, Urine Neg (NEGATIVE); Opiate Scree,Urine Pos (NEGATIVE)
[2024-09-03 12:39] LABS: Base Excess 1.7 mmol/L (-2.0-3.0)
[2024-09-03] MEDS: IOHEXOL 350 MG/ML 100ML IJ ONE (13:35)
--- NOTE | 2024-09-03 14:13 | DVHPNRES ---
Progress Note Date Seen: September 03, 2024 Resident Creating Document: KATHRYN ATKINS RESIDENT Medical Necessity Reason Pt with a Central, PICC or Fol: Yes The following are medically ne: Central Line, Ware Catheter Subjective Review of Systems This is a 74-year-old female with past medical history of COPD on home oxygen 2- 3 L, Alzheimer's dementia, anxiety, depression was brought in by EMS from [facility] due to acute hypoxia. Patient has baseline dementia and confused. Information was gathered from chart reviewing and talking to the nursing staff. According to the staff the patient developed respiratory distress and become hypoxic around 4:00 p.m. at the [facility] was desaturating to 70s and called the EMS . In the ED patient was also desaturating to 70s put on nasal cannula that did not relieved the hypoxia and started on BiPAP the patient was overnight BiPAP and in the morning ABG revealed severe respiratory acidosis, patient became more altered and was not able to maintain the airway and emergency intubation was done. Family was contracted before intubation but could not reach the family and emergency intubation was done to save the patient. Patient was seen and examined on the bedside. The patient is on mechanical ventilation with FiO2 50%, tidal volume 450 mL, peep 5 and respiratory rate 12. Objective vital signs Vital Sign Date Time Temp Pulse Resp B/P (MAP) Pulse Ox O2 Delivery O2 Flow Rate FiO2 09/03/24 13:36 30 09/03/24 13:36 83 09/03/24 13:36 12 100 Mechanical Ventilator+ 09/03/24 13:30 89.6 90/65 (73) 193.3 09/03/24 01:30 4 medications Current Medications Medications Dose Ordered Sig/Blanche Route Start Time Stop Time Status Last Admin Dose Admin Acetaminophen/ Hydrocodone Bitart 1 tab Q4HP PRN PO 09/03/24 03:45 Acetaminophen 650 mg Q6HP PRN PO 09/03/24 03:45 Sodium Chloride 10 ml Q8HR IV 09/03/24 06:00 09/03/24 13:39 10 ML Ondansetron HCl 4 mg Q4HP PRN IV 09/03/24 04:15 Cefepime HCl 50 ml @ 12.5 mls/hr Q12HR IV 09/03/24 22:00 Pantoprazole Sodium 40 mg DAILY IV 09/04/24 10:00 Methylprednisolone Sodium Succinate 40 mg BID IV 09/03/24 10:00 09/03/24 10:41 40 MG Norepinephrine Bitartrate 250 ml @ 3.75 mls/hr Q24H IV 09/03/24 08:00 09/03/24 08:00 3.75 MLS/HR Phenylephrine HCl 250 ml @ 30 mls/hr Q8H20M IV 09/03/24 08:00 Propofol 100 ml @ 1.908 mls/ hr Q24H IV 09/03/24 08:00 Midazolam HCl 50 ml @ 1 mls/hr Q24H IV 09/03/24 08:00 09/03/24 07:41 1 MLS/HR Fentanyl Citrate 250 ml @ 2.5 mls/hr Q24H IV 09/03/24 08:00 Furosemide 40 mg BIDD IV 09/03/24 18:00 Vancomycin HCl 0 ml @ 0 mls/hr UD IV 09/03/24 10:00 Levalbuterol HCl 1.25 mg Q6HR NEB 09/03/24 12:00 09/03/24 11:52 1.25 MG Ipratropium Hollis 0.5 mg Q6HR NEB 09/03/24 12:00 09/03/24 11:52 0.5 MG Vancomycin HCl 150 ml @ 150 mls/hr Q12H IV 09/03/24 23:00 Examination General: RASS -3, afebrile, mucosae are moist Cardiovascular: Normal S1 and S2. No murmurs, gallops or rubs Respiratory: Mechanically assisted ventilation, equal bilateral airway entree. Bilateral wheezing and coarse crackles. Abdomen: Soft, nontender, no organomegaly, normal bowel sounds MSK/skin: Mobilization of limbs cannot be evaluated. Skin is dry and warm. Neurological: Orientation cannot be assessed. No apparent motor no sensitive deficits. Pupils are isocoric and reactive laboratory and microbiology Laboratory Tests 09/03/24 09:02 Test 09/03/24 09:02 Range/Units Serum Glucose 97 74-106 mg/dL Labs and/or images reviewed: Labs reviewed by me, Image(s) reviewed by me Problem List/Assessment/Plan Problem List/Assessment/Plan Assessment and plan: NEURO: Acute hypercapnic encephalopathy carbon dioxide narcosis H/O of Alzheimer's dementia - on mechanical ventilation with FiO2 50%, peep 5, respiratory rate 12 and tidal volume 450 mL RASS score: -3 CARDIOVASCULAR: Possible chronic diastolic heart failure NSTEMI type 2 likely secondary to supply/demand mismatch Paroxysmal atrial fibrillation with secondary hypercoagulable state History of coronary artery disease - EKG showed atrial fibrillation, old anterior infarct - CXR showed cardiomegaly with mild pulmonary vascular congestion - BNP is normal - pending echo - IV Lasix 40 mg b.i.d. PULMONARY: Acute hypercapnic/ hypoxic respiratory failure Acute exacerbation of chronic COPD Possible Gram-positive/Gram-negative community-acquired pneumonia Possible aspiration pneumonia Sepsis due to pneumonia Rule out pulmonary embolism Mild left-sided pleural effusion - CXR showed Mild cardiomegaly with pulmonary vascular congestion. Small left pleural effusion and left basilar opacities which could reflect atelectasis or pneumonia - pending CT angio - COVID, flu are negative and pending MRSA - IV methylprednisolone 40 mg b.i.d. - IV Lasix 40 mg b.i.d. - med neb with levalbuterol and ipratropium q.6 hours - IV vancomycin as per pharmacy and IV cefepime 1 g q.12 hours - Pending blood culture, urine bacterial culture and sputum culture GASTROINTESTINAL: Transaminitis likely due to sepsis GENITOURINARY: UDS is positive for opioids, benzodiazepines and cannabinoids Plasma alcohol is more than 5.8 ENDOCRINE: Hyperglycemia likely due to steroid induced HEME: Leukopenia likely due to sepsis Chronic mild normocytic anemia likely due to anemia of chronic disease INFECTIOUS DISEASE: Sepsis due to pneumonia Leukopenia, hypothermia and lactic acidosis likely secondary to sepsis Possible aspiration pneumonia Community-acquired Gram-positive/Gram-negative pneumonia - Pending blood culture, urine bacterial culture and sputum culture - IV vancomycin as per pharmacy and IV cefepime 1 g q.12 hours MUSCULOSKELETAL: Ruled out DVT Possible Lymphedema of bilateral lower limb DIET: NPO DVT prophylax: Lovenox GI prophylaxis: Protonix Bowel regimen: Code status: Full code LINES/DRAINS/ACCESS: Right IJ triple-lumen catheter placed on 09/03/2024 ETT: Intubated on 09/03/2024 IV access: Drips: Fentanyl Ware catheter: Placed on 09/02/2024 DISPOSITION: KWAME Patient's status discussed with family Critical care time spent more than 81 minutes, including patient care, chart review, and updating the family. Excluding any procedures. Case discussed with Dr. Davila Plan discussed with: Patient, Other My Orders My Orders Orders - KATHRYN ATKINS Procedure Category Date Status Time Vancomycin Per PHA 09/03/24 In Process Pharmacy 10:00 Levalbuterol Hcl PHA 09/03/24 In Process (Xopenex Medneb) 12:00 Ipratropium Medneb PHA 09/03/24 In Process (Atrovent Medneb) 12:00 Vancomycin PHA 09/03/24 In Process 750mg/150ml 23:00 Vancomycin,Trough LAB 09/04/24 Verified 22:00 Vancomycin Per [facility] 09/04/24 In Process Pharmacy Protoc 23:00 KATHRYN ATKINS RESIDENT September 03, 2024 14:13
[2024-09-03 14:52] LABS: Base Excess -0.9 mmol/L (-2.0-3.0)
--- NOTE | 2024-09-03 15:24 | DVH ---
PROCEDURE: CT CT ANGIO CHEST CONTRAST 09/03/2024 02:17 PM INDICATION: RULED OUT PULMONARY EMBOLISM COMPARISON: None TECHNIQUE: Coverage: Thorax IV contrast: Administered Phases: Arterial Multiplanar 3-D Maximum Intensity Projection images (MIP) reconstructions were created by the techntanesha ellis in the coronal and sagittal planes as part of the CT angiography protocol. Adverse events: None Medication laboratory values were reviewed to verify the patient meets criteria for contrast administ ration. All CT scans at this medical facility are performed using dose modulation techniques as appropriate t o a performed exam including the following: Automated exposure control was utilized; adjustment of th e MA and/or KV according to patient size; and use of iterative reconstruction technique. Radiation dose: CTDIvol 8.88 mGy, DLP 386.39 mGy*cm. FINDINGS: Cardiovascular: No evidence of acute or chronic pulmonary emboli identified. The pulmonary arteries a re mildly prominent which may reflect underlying pulmonary arterial hypertension. Aorta is normal in caliber. The heart is moderately enlarged. No pericardial effusion. Coronary artery calcification no ba. Lungs: Moderate right and small left pleural effusions adjacent pulmonary opacities. Scattered ground -glass opacities noted in the bilateral lungs.. No pneumothorax. The airways are patent. The ETT ends above the level of pancho. Thyroid: Unremarkable. Esophagus: Unremarkable. Lymphatics: Mild mediastinal lymphadenopathy measuring up to 1.8 x 1.2 cm in the prevascular space. Bones/soft tissues: No acute abnormality. Mild depression of the superior and inferior endplates of s everal thoracic vertebrae likely related to Schmorl's node formation less than 10% loss of vertebral body height without retropulsion noted. Multilevel degenerative changes of the thoracic spine are not ed. Upper abdomen: No acute abnormality. The enteric tube extends to the stomach. Other: None. IMPRESSION: 1. No evidence of acute pulmonary emboli. 2. Cardiomegaly with evidence of CHF, bilateral pleural effusions and pulmonary edema. The different ial diagnosis for pulmonary opacities include pneumonia. 3. Mild mediastinal lymphadenopathy.
--- NOTE | 2024-09-03 16:02 | DVHNC2 ---
Procedure - Procedure- Bronchoscopy and bronchial washings Indication- Secretions Procedure in detail Consent was obtained and timeout performed per protocol. The patient was placed on 100% FiO2. Olympus bronchoscope was used and passed through the endotracheal tube, tracheobronchial tree was examined. There were no endobronchial lesions however there were signs of traumatic intubation in the trachea and moderate purulent secretions primarily on the right lung that were loosened up with approximately 50 cc of normal saline and thoroughly suctioned into a separate specimen container. There were no endobronchial lesions. After the procedure, the scope was removed. Patient tolerated the procedure well. RICK VARGAS MD September 03, 2024 16:02
[2024-09-03] MEDS: FUROSEMIDE 40 MG/4 ML VIAL IV SCH (17:34)
[2024-09-03] MEDS: CEFEPIME 1GM/ 50ML 50 ML IV SCH (21:33)
[2024-09-03] MEDS ORDERED: DOXYCYCLINE 100MG/100ML 100 ML IV SCH (22:00)
[2024-09-03] MEDS: VANCOMYCIN 750mg/150ml 150 ML IV SCH (23:11)
[2024-09-03] MEDS: AMIODARONE 360mg/200mL PREMIX 200 ML IV ONE (23:21)
[2024-09-04] VITALS (108 sets, daily range): BP systolic 74–111; BP diastolic 42–73; PULSE 64–129; RESP 9–21; TEMP 68–99.5; O2SAT 96–100
--- NOTE | 2024-09-04 00:50 | DVHSR ---
APPROVED REPORT EXAM: Two-dimensional and M-mode echocardiogram with Doppler and color Doppler. Blood Pressure: 110/68 mmHg INDICATION Heart Failure RISK FACTORS Height: 5'3", Weight: 140 DIMENSIONS LVDd4.9 (3.8-5.7cm)LA (2D)5.7 (1.9-4.0cm)Aortic Root2.7 (2.0-3.7cm) LVDs4.1 (2.5-4.0cm)LA (MM) (1.9-4.0cm)Aortic Cusp Exc1.7 (1.5-2.0cm) EF (%) 31.0 (55-70%)Rt. Atrium5.3 (1.9-4.0cm)Asc. Aorta3.1 cm IVSd1.0 (0.7-1.1cm)RV (D)3.6 (1.8-2.4cm) PWd0.9 (0.7-1.1cm) Mitral Valve MitralMitral Stenosis E wave0.97m/sMV Mean GR.mmHg E/A ratio0.02D MVAcm2 Aortic Valve Aortic ValveAortic Stenosis V10.51m/Boris Mean GR.2mmHg V20.89m/Boris Peak GR.3mmHg LVOT Diameter2.2 (1.8-2.4cm)Doppler AVA2.18cm2 Pulmonic Valve V20.42m/s Tricuspid Valve TR Velocity2.18m/s [id number] Conclusion 1. SEVERE GLOBAL LV HYPOKINESIS LV EF IS ONLY 15% 2. DILATED ALL CARDIAC CHAMBERS 3.SIGNIFICANTLY DILATED LA AND RA 4. SEVERE MR AND TR NO EFFUSION IT IS END STAGE DILATED CARDIOMYOPATHY
[2024-09-04] MEDS: DIGOXIN (250MCG/ML) 2 ML AMPULE IV ONE (01:00)
[2024-09-04] MEDS ORDERED: PHENYLEPHRINE IV 250 ML IV SCH (01:00)
[2024-09-04] MEDS: PHENYLEPHRINE IV 250 ML IV ONE (01:09)
[2024-09-04] MEDS: AMIODARONE 360mg/200mL PREMIX 200 ML IV SCH (05:31)
[2024-09-04 05:41] LABS: Basophils # (auto) 0 10 ^3/uL (0-0.2); Eosinophils # (auto) 0 10 ^3/uL (0-0.8); Lymphocytes # (auto) 0.3 10 ^3/uL (0.4-5.4); Monocytes # (auto) 0.6 10 ^3/uL (0-1.3)
[2024-09-04 05:45] LABS: Basophils % (auto) 0.1 % (0.0-2.0); Hematocrit 29.6 % (36.0-46.0); Hemoglobin 9.4 g/dL (12.2-16.2); Lymphocytes % (auto) 2.5 % (10.0-50.0); Mean Corpuscular Hgb Conc. 31.9 g/dL (32.0-36.0); Mean Corpuscular Volume 81.5 fL (80.0-100.0); Monocytes % (auto) 4.5 % (0.0-12.0); Neutrophils # (auto) 11.6 10 ^3/uL (1.6-8.6); Neutrophils % (auto) 92.9 % (37.0-80.0); Nucleated Red Blood Cells % 0.2 %; Platelet Count (auto) 91 10^3/uL (140-450); Red Blood Cells 3.63 10^6/uL (4.0-5.20); Red Cell Distribution Width 19.6 % (11.8-14.3); White Blood Cell 12.5 10^3/uL (4.4-10.8)
[2024-09-04 06:01] LABS: Alanine Aminotransferase 23 U/L (7-40); Albumin 3.3 g/dL (3.2-4.8); Alkaline Phosphatase 72 U/L (46-116); Anion Gap 9 (5-15); Aspartate Aminotransferase 40 U/L (13-40); BUN/Creatinine Ratio 18.6 (10.0-20.0); Blood Urea Nitrogen 18 mg/dL (9-23); Calcium 9.5 mg/dL (8.7-10.4); Carbon Dioxide 27 mmol/L (20-31); Chloride 105 mmol/L (98-107); Glucose 115 mg/dL (74-106); Potassium 4.7 mmol/L (3.5-5.1); Sodium 141 mmol/L (136-145); Total Protein 6.1 g/dL (5.7-8.2)
[2024-09-04 06:02] LABS: Bilirubin, Total 0.7 mg/dL (0.2-1.0)
--- NOTE | 2024-09-04 06:15 | DVH ---
EXAM: XY CHEST PORTABLE Indication: Mechanical ventilation Technique: Single frontal view of the chest was obtained Comparison: XY CHEST XRAY 1 VIEW on DOS: 09/03/24, XY CHEST PORTABLE on DOS: 09/03/24 FINDINGS: Lines and Tubes: Lines and tubes are unchanged. Lungs: Diffuse interstitial opacities. Pleura: Trace bilateral pleural effusions. No pneumothorax. Cardiomediastinal contours: Cardiomegaly. Bones: No acute osseous abnormality. IMPRESSION: No significant change compared to prior exam.
[2024-09-04 06:16] LABS: Giant Platelets Few; Platelet Estimate Decreased
[2024-09-04 06:50] LABS: Base Excess -4.2 mmol/L (-2.0-3.0)
[2024-09-04] MEDS: PANTOPRAZOLE 40 MG/10 ML VIAL INJ IV SCH (08:20)
--- NOTE | 2024-09-04 10:47 | DVHINCON2 ---
Date Seen: September 04, 2024 Referring Physician ROMI Little Reason for Consultation Unstable atrial fibrillation History of Present Illness This is a 74-year-old female who presented to the emergency room via EMS from [facility] facility with a chief complaint of shortness of b reath. Information obtained from records as the patient is currently endotracheally intubated with 30% FiO2 5.0 PEEP, on dual vasopressor, amiodarone drip, and chemically sedated. It appears the patient was found with shortness of breath and associated acute hypoxia with O2 saturations in the 90s at 4 LPM via NC. Arrival to the emergency room, she underwent a 12 lead electrocard iogram revealing an atrial fibrillation rhythm with a heart rate in the 90s bpm. Troponin levels have remained flat in the 30s ng/L. She was initially placed on a BiPAP machine for airway support and subsequently endotracheally intubated given worsening respiratory status. Significant medical history includes unspecified atrial fibrillation on Eliquis, dyslipidemia, COPD with O2 dependence, Alzheimer's dementia, depression, and anxiety. Past Medical History Past medical history reviewed. No other significant than mentioned above. Past Surgical History Unknown past surgical history. Family History: Patient reports no known family medical history. Family History Unknown family history. Social History Unknown social history. Allergies: Coded Allergies: Penicillins (Verified Allergy, Unknown, 11/27/19) Home Meds Reported Medications [elavil] No Conflict Check 10/01/09 Home Meds Home medications reviewed. Current Medications Current Medications Medications (Trade) Dose Ordered Sig/Blanche Route PRN Reason Start Time Stop Time Status Last Admin Cefepime HCl 50 ml @ 12.5 mls/hr Q12HR IV 09/03/24 22:00 09/04/24 08:20 Doxycycline Hyclate 100 ml @ 50 mls/hr Q12HR IV 09/03/24 22:00 09/03/24 09:56 DC Pantoprazole Sodium (Protonix) 40 mg DAILY IV 09/04/24 10:00 09/04/24 08:20 Furosemide (Lasix Injection) 40 mg BIDD IV 09/03/24 18:00 09/04/24 06:17 Levalbuterol HCl (Xopenex Medneb) 1.25 mg Q6HR NEB 09/03/24 12:00 09/04/24 05:58 Ipratropium [place] (Atrovent Medneb) 0.5 mg Q6HR NEB 09/03/24 12:00 09/04/24 05:58 Vancomycin HCl 150 ml @ 150 mls/hr Q12H IV 09/03/24 23:00 09/04/24 09:36 Phenylephrine HCl 250 ml @ 30 mls/hr Q8H20M IV 09/04/24 01:00 UNV Review of Systems Constitutional: No symptom reported Ears, Nose, & Throat: No symptom reported Eyes: No symptom reported Neurological: No symptoms reported Pulmonary/Respiratory: SOB Cardiovascular: No symptom reported Gastrointestinal: No symptom reported Genitourinary: No symptom reported Musculoskeletal: No symptom reported Skin: No symptom reported Psychiatric: No symptom reported Endocrine: No symptom reported Hemotologic/Lymphatic: No symptom reported Vital Signs Vital Signs Date Time Temp Pulse Resp B/P (MAP) Pulse Ox O2 Delivery O2 Flow Rate FiO2 09/04/24 10:00 103/55 09/04/24 09:45 99.3 80 13 97 210.7 09/04/24 09:43 30 09/04/24 09:43 Mechanical Ventilator+ 09/03/24 01:30 4 Physical Exam General Appearance: Chronically ill. Chemically sedated. Endotracheally intubated Head Exam: Normal inspection Neck Exam: Normal inspection. Normal alignment Pulmonary/Respiratory: Crackles to bilateral breath sounds. Endotracheally intubated 30% FiO2 Cardiovascular/Chest: Irregularly irregular rate and rhythm. A-fib 70s bpm. + JVD. Peripheral Pulses: 2+ Radial (R). 2+ Radial (L). 2+ Pedal (R). 2+ Pedal (L) Abdominal Exam: Normal bowel sounds. Soft. Ankle Exam: Positive ankle pitting edema, 3+ Lower extremities: Positive lower extremity pitting edema, 3+ Neuro/Mental Status: Chemically sedated. Pinpoint pupils. +Cough reflex. Withdrawn Thoughts/Psych: Unable to assess at this time Appearance: Fluid overloaded Skin Exam: Normal inspection. Normal color. Warm. Dry Labs/Diagnostic Data Labs Test 09/04/24 06:45 09/04/24 05:09 09/04/24 05:03 09/03/24 15:45 Range/Units Blood Gas Specimen Type Arterial Blood Gas Sample Site Right radial Blood Gas Patient Temperature 37.0 Arterial Blood Date Drawn [id number] Arterial Blood pH 7.321 L 7.350-7.450 Arterial Blood Partial Pressure CO2 43.0 32.0-45.0 mmHg Arterial Blood Partial Pressure O2 63.4 L 83.0-108.0 mmHg Arterial Blood HCO3 21.7 21.0-28.0 mmol/L Arterial Blood Oxygen Saturation 90.6 L 94.0-98.0 % Arterial Blood Base Excess -4.2 L -2.0-3.0 mmol/L Arterial Blood Oxyhemoglobin 90.0 L 94.0-98.0 % Arterial Blood Carboxyhemoglobin 0.3 L 0.5-1.5 % Arterial Blood Methemoglobin 0.4 0.0-1.5 % Luis Test Modified Blood Gas Total Hemoglobin 10.60 L 12.0-16.0 g/dL Blood Gas Set Respiration Rate 12.0 Blood Gas Modality Vent - ac FiO2 % 30.0 Blood Gas Tidal Volume 450.0 Blood Gas PEEP or CPAP 5.0 POC Glucose 111 H 70-106 mg/dl White Blood Count 12.5 #H 4.4-10.8 10^3/uL Red Blood Count 3.63 L 4.0-5.20 10^6/uL Hemoglobin 9.4 L 12.2-16.2 g/dL Hematocrit 29.6 #L 36.0-46.0 % Mean Corpuscular Volume 81.5 80.0-100.0 fL Mean Corpuscular Hemoglobin 26.0 L 28.0-32.0 pg Mean Corpuscular Hemoglobin Concent 31.9 L 32.0-36.0 g/dL Red Cell Distribution Width 19.6 H 11.8-14.3 % Platelet Count 91 L 140-450 10^3/uL Mean Platelet Volume 9.6 6.9-10.8 fL Neutrophils (%) (Auto) 92.9 H 37.0-80.0 % Lymphocytes (%) (Auto) 2.5 L 10.0-50.0 % Monocytes (%) (Auto) 4.5 0.0-12.0 % Eosinophils (%) (Auto) 0.0 0.0-7.0 % Basophils (%) (Auto) 0.1 0.0-2.0 % Neutrophils # (Auto) 11.6 H 1.6-8.6 10 ^3/uL Lymphocytes # (Auto) 0.3 L 0.4-5.4 10 ^3/uL Monocytes # (Auto) 0.6 0-1.3 10 ^3/uL Eosinophils # (Auto) 0 0-0.8 10 ^3/uL Basophils # (Auto) 0 0-0.2 10 ^3/uL Nucleated Red Blood Cells 0.2 % Platelet Estimate Decreased Giant Platelets Few Sodium Level 141 136-145 mmol/L Potassium Level 4.7 3.5-5.1 mmol/L Chloride Level 105 98-107 mmol/L Carbon Dioxide Level 27 20-31 mmol/L Anion Gap 9 5-15 Blood Urea Nitrogen 18 9-23 mg/dL Creatinine 0.97 0.550-1.02 mg/dL Glomerular Filtration Rate Calc 61 >90 mL/min BUN/Creatinine Ratio 18.6 10.0-20.0 Serum Glucose 115 H 74-106 mg/dL Calcium Level 9.5 8.7-10.4 mg/dL Total Bilirubin 0.7 0.2-1.0 mg/dL Aspartate Amino Transferase (AST) 40 13-40 U/L Alanine Aminotransferase (ALT) 23 7-40 U/L Alkaline Phosphatase 72 46-116 U/L Total Protein 6.1 5.7-8.2 g/dL Albumin 3.3 3.2-4.8 g/dL Troponin I High Sensitivity 35 *H </=34 ng/L Test 09/03/24 14:44 09/03/24 11:31 09/03/24 09:12 09/03/24 09:02 Range/Units Blood Gas Spontaneous Rate 12 Urine Color Yellow Yellow Urine Clarity Turbid H Clear Urine pH 8.5 5.0-9.0 Urine Specific [place] 1.013 1.001-1.035 Urine Protein Trace H Negative Urine Ketones Negative Negative Urine Blood Negative Negative /uL Urine Nitrite Negative Negative Urine Bilirubin Negative Negative Urine Urobilinogen Normal Negative mg/dL Urine Leukocyte Esterase Negative Negative /uL Urine RBC 4 0 - 4 /hpf Urine Microscopic WBC 1 0-5 /HPF Urine Squamous Epithelial Cells Few <5 /hpf Urine Bacteria None seen None Seen /hpf Urine Hyaline Casts Mod 0 - 2 /lpf Urine Mucus Few None Seen Urine Glucose Normal Normal mg/dL Urine Opiates Screen Pos NEGATIVE Urine Fentanyl Screen Neg NEGATIVE Urine Barbiturates Screen Neg NEGATIVE Urine Phencyclidine Screen Neg NEGATIVE Urine Amphetamines Screen Neg NEGATIVE Urine Benzodiazepines Screen Pos NEGATIVE Urine Cocaine Screen Neg NEGATIVE Urine Cannabinoids Screen Pos NEGATIVE Blood Gas Critical Value Read Back Yes Blood Gas Notified Whom reinaldo Cabral Blood Gas Notified Time [id number] Blood Gas Notified By Tow Bar Driver rocio muhammad Lactic Acid Level 2.2 *H 0.4-2.0 mmol/L Magnesium Level 1.9 1.6-2.6 mg/dL Test 09/03/24 07:07 09/03/24 04:57 09/03/24 04:30 09/03/24 03:18 Range/Units Blood Gas Liter Flow 6.00 HIV (1&2) Antibody Negative Negative Influenza Type A Antigen Negative Negative Influenza Type B Antigen Negative Negative SARS-CoV-2 Antigen (Rapid) Negative NEGATIVE Blood Gas EPAP 5 Blood Gas IPAP 15 Test 09/03/24 01:40 09/03/24 01:38 09/03/24 01:29 Range/Units Vitamin B12 Level 2690 H 211-911 pg/mL Vitamin D 25-Hydroxy 67.0 30.0-100 ng/mL Folic Acid 38.61 >5.38 ng/mL Large Platelets Few Anisocytosis (manual) Slight Martha Cells Few D-Dimer, Quantitative 2.10 H 0.0-0.49 mg/L FEU B-Type Natriuretic Peptide 82.77 0-100 pg/mL Thyroid Stimulating Hormone (TSH) 2.81 0.55-4.78 uIU/mL Plasma/Serum Blood Alcohol 5.8 <10 mg/dL Venous Blood pH 7.192 *L 7.320-7.430 Venous Blood pCO2 at Patient Temp 77.2 *H 38.0-54.0 mmHg Venous Blood pO2 at Patient Temp < 36.5 23.0-48.0 mmHg Venous Blood HCO3 29.0 22.0-29.0 mmol/L Venous Blood Base Excess -1.5 -2.0-3.0 mmol/L Microbiology Date/Time Source Procedure Growth Status 09/03/24 01:38 Blood Blood Culture - Preliminary Resulted Assessment 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 Bro) Atrial fibrillation with rapid ventricular rate event occurred during sedation vacation for which the patient was re-sedated and now at a controlled rate. Continue amiodarone drip per pharmacy protocol vasopressors for hemodynamic support. Initiate low-dose dobutamine drip for inotropic support. Currently off full AC therapy given thrombocytopenia which places the patient at a high risk for an acute CVA ([id number] Score of 4 points, HAS-BLED Score 2 points). Replete electrolytes as necessary, K>4 and Mg>2. Continue ABX therapy per primary care team. DVT/VTE prophylaxis: SCDs. Monitor ECG changes and notify accordingly. Very poor prognosis, consider hospice care for end-stage cardiomyopathy. Thank you for allowing us to participate in this patient's care. Please call if you have any questions or concerns. Critical care time: 40 min. This medical document was created using an [employer] medical record system with voice recognition software and computerized dictation system. Although this document has been carefully reviewed, there might still be some phonetic and typographical errors. Occasional wrong-word or ``sound-alike substitutions may have occurred due to the inherent limitations of voice recognition software. These areas are purely typographical due to imperfections of the software programs and do not reflect any compromise in the patient's medical care. Please read the chart carefully and recognize, using context, where these substitutions have occurred. Plan discussed with: Other NYHA Physical activity limitations: Class4(Severe)discomfort (w any activit,symptoms at rest) Date of Service: September 04, 2024 Billing Provider: HEATHER SANTOS Cardiology Common Codes: [id number] CARE 30-74 MIN HEATHER SANTOS September 04, 2024 10:47
[2024-09-04] MEDS: DOBUTamine 1000MCG/ML 250 ML IV SCH (12:02)
--- NOTE | 2024-09-04 16:25 | DVHPN2 ---
Subjective intubated and sedated Changes from previous H/P or p: No Changes Objective Vitals Vital Signs Date Time Temp Pulse Resp B/P (MAP) Pulse Ox O2 Delivery O2 Flow Rate FiO2 09/04/24 16:00 95.7 98 12 92/55 (67) 97 204.3 09/04/24 15:50 30 09/04/24 15:34 Mechanical Ventilator+ 09/03/24 01:30 4 Intake/Output Intake and Output 09/04/24 07:00 Intake Total 230.66 ml Output Total 1100 ml Balance -869.34 ml Intake Oral 0 ml IV Total 230.66 ml Output Urine Total 1100 ml # Bowel Movements 1 General Appearance: Other (intubated and sedated) Lungs: Clear to auscultation Cardiovascular: Regular rate, Normal S1, Normal S2 Abdomen: Soft, No tenderness Rectal: Deferred Skin: Other (LE swelling) Medications Current Medications Medications Dose Ordered Sig/Blanche Route Start Time Stop Time Status Last Admin Dose Admin Acetaminophen/ Hydrocodone Bitart 1 tab Q4HP PRN PO 09/03/24 03:45 Acetaminophen 650 mg Q6HP PRN PO 09/03/24 03:45 Sodium Chloride 10 ml Q8HR IV 09/03/24 06:00 09/04/24 08:35 10 ML Ondansetron HCl 4 mg Q4HP PRN IV 09/03/24 04:15 Cefepime HCl 50 ml @ 12.5 mls/hr Q12HR IV 09/03/24 22:00 09/04/24 08:20 12.5 MLS/HR Pantoprazole Sodium 40 mg DAILY IV 09/04/24 10:00 09/04/24 08:20 40 MG Methylprednisolone Sodium Succinate 40 mg BID IV 09/03/24 10:00 09/04/24 08:20 40 MG Norepinephrine Bitartrate 250 ml @ 3.75 mls/hr Q24H IV 09/03/24 08:00 09/03/24 08:00 3.75 MLS/HR Phenylephrine HCl 250 ml @ 30 mls/hr Q8H20M IV 09/03/24 08:00 09/04/24 06:13 123.75 MLS/HR Propofol 100 ml @ 1.908 mls/ hr Q24H IV 09/03/24 08:00 Midazolam HCl 50 ml @ 1 mls/hr Q24H IV 09/03/24 08:00 09/03/24 07:41 1 MLS/HR Fentanyl Citrate 250 ml @ 2.5 mls/hr Q24H IV 09/03/24 08:00 09/04/24 12:03 20 MLS/HR Furosemide 40 mg BIDD IV 09/03/24 18:00 09/04/24 06:17 40 MG Vancomycin HCl 0 ml @ 0 mls/hr UD IV 09/03/24 10:00 Levalbuterol HCl 1.25 mg Q6HR NEB 09/03/24 12:00 09/04/24 11:25 1.25 MG Ipratropium [place] 0.5 mg Q6HR NEB 09/03/24 12:00 09/04/24 11:25 0.5 MG Vancomycin HCl 150 ml @ 150 mls/hr Q12H IV 09/03/24 23:00 09/04/24 09:36 150 MLS/HR Phenylephrine HCl 250 ml @ 30 mls/hr Q8H20M IV 09/04/24 01:00 UNV Dobutamine HCl/ Dextrose 250 ml @ 11.1 mls/hr [id number] IV 09/04/24 11:00 09/04/24 12:02 11.1 MLS/HR Laboratory Results Laboratory Tests 09/04/24 05:03 Chemistry Test 09/04/24 05:03 Albumin 3.3 g/dL (3.2-4.8) Calcium Level 9.5 mg/dL (8.7-10.4) Total Protein 6.1 g/dL (5.7-8.2) LFT Test 09/04/24 05:03 Alanine Aminotransferase (ALT) 23 U/L (7-40) Alkaline Phosphatase 72 U/L (46-116) Aspartate Amino Transferase (AST) 40 U/L (13-40) Total Bilirubin 0.7 mg/dL (0.2-1.0) Urinalysis Test 09/03/24 11:31 Urine Color Yellow (Yellow) Urine Clarity Turbid (Clear) H Urine pH 8.5 (5.0-9.0) Urine Specific [place] 1.013 (1.001-1.035) Urine Protein Trace (Negative) H Urine Ketones Negative (Negative) Urine Blood Negative /uL (Negative) Urine Nitrite Negative (Negative) Urine Bilirubin Negative (Negative) Urine Urobilinogen Normal mg/dL (Negative) Urine Leukocyte Esterase Negative /uL (Negative) Urine RBC 4 /hpf (0 - 4) Urine Microscopic WBC 1 /HPF (0-5) Urine Squamous Epithelial Cells Few /hpf (<5) Urine Bacteria None seen /hpf (None Seen) Urine Hyaline Casts Mod /lpf (0 - 2) Urine Mucus Few (None Seen) Urine Glucose Normal mg/dL (Normal) Blood Gas Results Test 09/04/24 06:45 Arterial Blood pH 7.321 (7.350-7.450) FiO2 % 30.0 Microbiology Microbiology Date/Time Source Procedure Growth Status 09/03/24 14:00 Sputum Gram Stain - Final Resulted 09/03/24 14:00 Sputum Respiratory Culture - Preliminary Resulted 09/03/24 11:31 Urine - [place] Urine Culture - Preliminary Resulted 09/03/24 10:20 Nose MRSA Screen - Final Complete 09/03/24 01:38 Blood Blood Culture - Preliminary Resulted Assessment/Plan Assessment/Plan Assessment and plan: NEURO: Acute hypercapnic encephalopathy carbon dioxide narcosis H/O of Alzheimer's dementia - on mechanical ventilation with FiO2 50%, peep 5, respiratory rate 12 and tidal volume 450 mL RASS score: -3 CARDIOVASCULAR: Possible chronic diastolic heart failure NSTEMI type 2 likely secondary to supply/demand mismatch Paroxysmal atrial fibrillation with secondary hypercoagulable state History of coronary artery disease - EKG showed atrial fibrillation, old anterior infarct - CXR showed cardiomegaly with mild pulmonary vascular congestion - BNP is normal - pending echo - IV Lasix 40 mg b.i.d. PULMONARY: Acute hypercapnic/ hypoxic respiratory failure Acute exacerbation of chronic COPD Possible Gram-positive/Gram-negative community-acquired pneumonia Possible aspiration pneumonia Sepsis due to pneumonia Rule out pulmonary embolism Mild left-sided pleural effusion - CXR showed Mild cardiomegaly with pulmonary vascular congestion. Small left pleural effusion and left basilar opacities which could reflect atelectasis or pneumonia - pending CT angio - COVID, flu are negative and pending MRSA - IV methylprednisolone 40 mg b.i.d. - IV Lasix 40 mg b.i.d. - med neb with levalbuterol and ipratropium q.6 hours - IV vancomycin as per pharmacy and IV cefepime 1 g q.12 hours - Pending blood culture, urine bacterial culture and sputum culture GASTROINTESTINAL: Transaminitis likely due to sepsis GENITOURINARY: UDS is positive for opioids, benzodiazepines and cannabinoids Plasma alcohol is more than 5.8 ENDOCRINE: Hyperglycemia likely due to steroid induced HEME: Leukopenia likely due to sepsis Chronic mild normocytic anemia likely due to anemia of chronic disease INFECTIOUS DISEASE: Sepsis due to pneumonia Leukopenia, hypothermia and lactic acidosis likely secondary to sepsis Possible aspiration pneumonia Community-acquired Gram-positive/Gram-negative pneumonia - Pending blood culture, urine bacterial culture and sputum culture - IV vancomycin as per pharmacy and IV cefepime 1 g q.12 hours MUSCULOSKELETAL: Ruled out DVT Possible Lymphedema of bilateral lower limb DIET: NPO DVT prophylax: Lovenox GI prophylaxis: Protonix Bowel regimen: Code status: Full code LINES/DRAINS/ACCESS: Right IJ triple-lumen catheter placed on 09/03/2024 ETT: Intubated on 09/03/2024 IV access: Drips: Fentanyl [place] catheter: Placed on 09/02/2024 DISPOSITION: KWAME Patient's status discussed with family Critical care time spent more than 81 minutes, including patient care, chart review, and updating the family. Excluding any procedures. Plan discussed with: Other (nurse) Date of Service: September 04, 2024 Billing Provider: RD KRISHNA MD Common Visit Codes: [id number] CARE 30-[address] KRISHNA MD September 04, 2024 16:25
--- NOTE | 2024-09-04 17:50 | DVHPN2 ---
Progress Note - Dictate Date Seen: September 04, 2024 Medical Necessity Reason Pt with a Central, PICC or Fol: Yes The following are medically ne: Central Line, Ware Catheter vital signs Vital Sign Date Time Temp Pulse Resp B/P (MAP) Pulse Ox O2 Delivery O2 Flow Rate FiO2 09/04/24 17:32 12 98 Mechanical Ventilator+ 30 30 09/04/24 17:32 94 09/04/24 17:30 95.9 89/53 (65) 204.6 09/03/24 01:30 4 Total Intake and Output 09/03/24 09/03/24 09/04/24 15:00 23:00 07:00 Intake Total 11.50 ml 45.00 ml 174.16 ml Output Total 650 ml 450 ml Balance 11.50 ml -605.00 ml -275.84 ml medications Current Medications Medications Dose Ordered Sig/Blanche Route Start Time Stop Time Status Last Admin Dose Admin Acetaminophen/ Hydrocodone Bitart 1 tab Q4HP PRN PO 09/03/24 03:45 Acetaminophen 650 mg Q6HP PRN PO 09/03/24 03:45 Sodium Chloride 10 ml Q8HR IV 09/03/24 06:00 09/04/24 08:35 10 ML Ondansetron HCl 4 mg Q4HP PRN IV 09/03/24 04:15 Cefepime HCl 50 ml @ 12.5 mls/hr Q12HR IV 09/03/24 22:00 09/04/24 08:20 12.5 MLS/HR Pantoprazole Sodium 40 mg DAILY IV 09/04/24 10:00 09/04/24 08:20 40 MG Methylprednisolone Sodium Succinate 40 mg BID IV 09/03/24 10:00 09/04/24 08:20 40 MG Norepinephrine Bitartrate 250 ml @ 3.75 mls/hr Q24H IV 09/03/24 08:00 09/04/24 17:06 26.25 MLS/HR Phenylephrine HCl 250 ml @ 30 mls/hr Q8H20M IV 09/03/24 08:00 09/04/24 06:13 123.75 MLS/HR Propofol 100 ml @ 1.908 mls/ hr Q24H IV 09/03/24 08:00 Midazolam HCl 50 ml @ 1 mls/hr Q24H IV 09/03/24 08:00 09/03/24 07:41 1 MLS/HR Fentanyl Citrate 250 ml @ 2.5 mls/hr Q24H IV 09/03/24 08:00 09/04/24 12:03 20 MLS/HR Furosemide 40 mg BIDD IV 09/03/24 18:00 09/04/24 17:06 40 MG Vancomycin HCl 0 ml @ 0 mls/hr UD IV 09/03/24 10:00 Levalbuterol HCl 1.25 mg Q6HR NEB 09/03/24 12:00 09/04/24 11:25 1.25 MG Ipratropium [place] 0.5 mg Q6HR NEB 09/03/24 12:00 09/04/24 11:25 0.5 MG Vancomycin HCl 150 ml @ 150 mls/hr Q12H IV 09/03/24 23:00 09/04/24 09:36 150 MLS/HR Phenylephrine HCl 250 ml @ 30 mls/hr Q8H20M IV 09/04/24 01:00 UNV Dobutamine HCl/ Dextrose 250 ml @ 11.1 mls/hr [id number] IV 09/04/24 11:00 09/04/24 12:02 11.1 MLS/HR laboratory and microbiology Laboratory Tests 09/04/24 05:03 Test 09/04/24 05:03 Range/Units Serum Glucose 115 H 74-106 mg/dL Assessment/Plan Impression Acute hypoxemic respiratory failure Acute COPD exacerbation Hx of Alzheimer's disease Pleural effusions Pneumonia NSTEMI Patient seen and examined Events On mechanical ventilation S/p intubation PEEP 5, FiO2 30% On Dobutamine drip for inotropic support Central line in place for intravenous access Labs and imaging reviewed ABG reviewed Management Vent support Titrate to maintain sats 90% or above Sedation for vent synchrony Continue antibiotics F/u cultures Bronchodilators Monitor renal function Monitor electrolytes Supplement as needed Pressors as needed for hemodynamic support To maintain a mean arterial pressure of 65 mmHg Echo report reviewed F/u cardiology DVT prophylaxis Critical care time 35 minutes Plan discussed with: Other (Rn) RICK VARGAS MD September 04, 2024 17:49
--- NOTE | 2024-09-04 20:08 | DVHINCON2 ---
Date Seen: September 04, 2024 Referring Physician ROMI Little Reason for Consultation Unstable atrial fibrillation History of Present Illness This is a 74-year-old female with a past medical history of unspecified atrial fibrillation on Eliquis, dyslipidemia, COPD with O2 dependence, Alzheimer's dementia, depression, and anxiety who presented to the ED by EMS from [facility] facility with a complaint of shortness of breath. Information obtained from records as the patient is currently endotracheally intubated with 30% FiO2 5.0 PEEP, on dual vasopressor, amiodarone drip, and chemically sedated. Patient was found with shortness of breath and associated acute hypoxia with O2 saturations in the 90s at 4 LPM via NC. Arrival to the emergency room, she underwent a 12 lead electrocardiogram revealing an atrial fibrillation rhythm with a heart rate in the 90s bpm. Troponin levels have remained flat in the 30s ng/L. She was initially placed on a BiPAP machine for airway support and subsequently endotracheally intubated given worsening respiratory status. Patient was admitted to the hospital. I am asked to consult on this patient. Past Medical History Past medical history reviewed. No other significant than mentioned above. Past Surgical History Unknown past surgical history. Family History: Patient reports no known family medical history. Allergies: Coded Allergies: Penicillins (Verified Allergy, Unknown, 11/27/19) Home Meds Reported Medications [elavil] No Conflict Check 10/01/09 Current Medications Current Medications Medications (Trade) Dose Ordered Sig/Blanche Route PRN Reason Start Time Stop Time Status Last Admin Cefepime HCl 50 ml @ 12.5 mls/hr Q12HR IV 09/03/24 22:00 09/04/24 08:20 Doxycycline Hyclate 100 ml @ 50 mls/hr Q12HR IV 09/03/24 22:00 09/03/24 09:56 DC Pantoprazole Sodium (Protonix) 40 mg DAILY IV 09/04/24 10:00 09/04/24 08:20 Furosemide (Lasix Injection) 40 mg BIDD IV 09/03/24 18:00 09/04/24 06:17 Vancomycin HCl 150 ml @ 150 mls/hr Q12H IV 09/03/24 23:00 09/04/24 09:36 Phenylephrine HCl 250 ml @ 30 mls/hr Q8H20M IV 09/04/24 01:00 UNV Dobutamine HCl/ Dextrose 250 ml @ 11.1 mls/hr [id number] IV 09/04/24 11:00 09/04/24 12:02 Review of Systems Constitutional: No symptom reported Ears, Nose, & Throat: No symptom reported Eyes: No symptom reported Neurological: No symptoms reported Pulmonary/Respiratory: SOB Cardiovascular: No symptom reported Gastrointestinal: No symptom reported Genitourinary: No symptom reported Musculoskeletal: No symptom reported Skin: No symptom reported Psychiatric: No symptom reported Endocrine: No symptom reported Hemotologic/Lymphatic: No symptom reported Vital Signs Vital Signs Date Time Temp Pulse Resp B/P (MAP) Pulse Ox O2 Delivery O2 Flow Rate FiO2 09/04/24 13:34 93 09/04/24 13:34 12 97 Mechanical Ventilator+ 30 30 09/04/24 13:30 96.6 92/53 (66) 205.9 09/03/24 01:30 4 Physical Exam GENERAL: Ill appearing, intubated on ventilator. EYES: PERRL, EOMI. Anicteric. HENT: Moist mucous membranes. LUNGS: Decreased breath sounds. CARDIOVASCULAR: Irregular rate and rhythm. ABDOMEN: Soft, nontender and nondistended. EXTREMITIES: +3 BLE pitting edema. SKIN: Warm, dry. Labs/Diagnostic Data Labs Test 09/04/24 06:45 09/04/24 05:09 09/04/24 05:03 09/03/24 15:45 Range/Units Blood Gas Specimen Type Arterial Blood Gas Sample Site Right radial Blood Gas Patient Temperature 37.0 Arterial Blood Date Drawn [id number] Arterial Blood pH 7.321 L 7.350-7.450 Arterial Blood Partial Pressure CO2 43.0 32.0-45.0 mmHg Arterial Blood Partial Pressure O2 63.4 L 83.0-108.0 mmHg Arterial Blood HCO3 21.7 21.0-28.0 mmol/L Arterial Blood Oxygen Saturation 90.6 L 94.0-98.0 % Arterial Blood Base Excess -4.2 L -2.0-3.0 mmol/L Arterial Blood Oxyhemoglobin 90.0 L 94.0-98.0 % Arterial Blood Carboxyhemoglobin 0.3 L 0.5-1.5 % Arterial Blood Methemoglobin 0.4 0.0-1.5 % Luis Test Modified Blood Gas Total Hemoglobin 10.60 L 12.0-16.0 g/dL Blood Gas Set Respiration Rate 12.0 Blood Gas Modality Vent - ac FiO2 % 30.0 Blood Gas Tidal Volume 450.0 Blood Gas PEEP or CPAP 5.0 POC Glucose 111 H 70-106 mg/dl White Blood Count 12.5 #H 4.4-10.8 10^3/uL Red Blood Count 3.63 L 4.0-5.20 10^6/uL Hemoglobin 9.4 L 12.2-16.2 g/dL Hematocrit 29.6 #L 36.0-46.0 % Mean Corpuscular Volume 81.5 80.0-100.0 fL Mean Corpuscular Hemoglobin 26.0 L 28.0-32.0 pg Mean Corpuscular Hemoglobin Concent 31.9 L 32.0-36.0 g/dL Red Cell Distribution Width 19.6 H 11.8-14.3 % Platelet Count 91 L 140-450 10^3/uL Mean Platelet Volume 9.6 6.9-10.8 fL Neutrophils (%) (Auto) 92.9 H 37.0-80.0 % Lymphocytes (%) (Auto) 2.5 L 10.0-50.0 % Monocytes (%) (Auto) 4.5 0.0-12.0 % Eosinophils (%) (Auto) 0.0 0.0-7.0 % Basophils (%) (Auto) 0.1 0.0-2.0 % Neutrophils # (Auto) 11.6 H 1.6-8.6 10 ^3/uL Lymphocytes # (Auto) 0.3 L 0.4-5.4 10 ^3/uL Monocytes # (Auto) 0.6 0-1.3 10 ^3/uL Eosinophils # (Auto) 0 0-0.8 10 ^3/uL Basophils # (Auto) 0 0-0.2 10 ^3/uL Nucleated Red Blood Cells 0.2 % Platelet Estimate Decreased Giant Platelets Few Sodium Level 141 136-145 mmol/L Potassium Level 4.7 3.5-5.1 mmol/L Chloride Level 105 98-107 mmol/L Carbon Dioxide Level 27 20-31 mmol/L Anion Gap 9 5-15 Blood Urea Nitrogen 18 9-23 mg/dL Creatinine 0.97 0.550-1.02 mg/dL Glomerular Filtration Rate Calc 61 >90 mL/min BUN/Creatinine Ratio 18.6 10.0-20.0 Serum Glucose 115 H 74-106 mg/dL Calcium Level 9.5 8.7-10.4 mg/dL Total Bilirubin 0.7 0.2-1.0 mg/dL Aspartate Amino Transferase (AST) 40 13-40 U/L Alanine Aminotransferase (ALT) 23 7-40 U/L Alkaline Phosphatase 72 46-116 U/L Total Protein 6.1 5.7-8.2 g/dL Albumin 3.3 3.2-4.8 g/dL Troponin I High Sensitivity 35 *H </=34 ng/L Test 09/03/24 14:44 09/03/24 11:31 09/03/24 09:12 09/03/24 09:02 Range/Units Blood Gas Spontaneous Rate 12 Urine Color Yellow Yellow Urine Clarity Turbid H Clear Urine pH 8.5 5.0-9.0 Urine Specific [place] 1.013 1.001-1.035 Urine Protein Trace H Negative Urine Ketones Negative Negative Urine Blood Negative Negative /uL Urine Nitrite Negative Negative Urine Bilirubin Negative Negative Urine Urobilinogen Normal Negative mg/dL Urine Leukocyte Esterase Negative Negative /uL Urine RBC 4 0 - 4 /hpf Urine Microscopic WBC 1 0-5 /HPF Urine Squamous Epithelial Cells Few <5 /hpf Urine Bacteria None seen None Seen /hpf Urine Hyaline Casts Mod 0 - 2 /lpf Urine Mucus Few None Seen Urine Glucose Normal Normal mg/dL Urine Opiates Screen Pos NEGATIVE Urine Fentanyl Screen Neg NEGATIVE Urine Barbiturates Screen Neg NEGATIVE Urine Phencyclidine Screen Neg NEGATIVE Urine Amphetamines Screen Neg NEGATIVE Urine Benzodiazepines Screen Pos NEGATIVE Urine Cocaine Screen Neg NEGATIVE Urine Cannabinoids Screen Pos NEGATIVE Blood Gas Critical Value Read Back Yes Blood Gas Notified Whom reinaldo Cabral Blood Gas Notified Time [id number] Blood Gas Notified By [employer] rocio muhammad Lactic Acid Level 2.2 *H 0.4-2.0 mmol/L Magnesium Level 1.9 1.6-2.6 mg/dL Test 09/03/24 07:07 09/03/24 04:57 09/03/24 04:30 09/03/24 03:18 Range/Units Blood Gas Liter Flow 6.00 HIV (1&2) Antibody Negative Negative Influenza Type A Antigen Negative Negative Influenza Type B Antigen Negative Negative SARS-CoV-2 Antigen (Rapid) Negative NEGATIVE Blood Gas EPAP 5 Blood Gas IPAP 15 Test 09/03/24 01:40 09/03/24 01:38 09/03/24 01:29 Range/Units Vitamin B12 Level 2690 H 211-911 pg/mL Vitamin D 25-Hydroxy 67.0 30.0-100 ng/mL Folic Acid 38.61 >5.38 ng/mL Large Platelets Few Anisocytosis (manual) Slight [place] Cells Few D-Dimer, Quantitative 2.10 H 0.0-0.49 mg/L FEU B-Type Natriuretic Peptide 82.77 0-100 pg/mL Thyroid Stimulating Hormone (TSH) 2.81 0.55-4.78 uIU/mL Plasma/Serum Blood Alcohol 5.8 <10 mg/dL Venous Blood pH 7.192 *L 7.320-7.430 Venous Blood pCO2 at Patient Temp 77.2 *H 38.0-54.0 mmHg Venous Blood pO2 at Patient Temp < 36.5 23.0-48.0 mmHg Venous Blood HCO3 29.0 22.0-29.0 mmol/L Venous Blood Base Excess -1.5 -2.0-3.0 mmol/L Microbiology Date/Time Source Procedure Growth Status 09/03/24 14:00 Sputum Gram Stain Pending Resulted 09/03/24 14:00 Sputum Respiratory Culture - Preliminary Resulted 09/03/24 11:31 Urine - [place] Urine Culture - Preliminary Resulted 09/03/24 10:20 Nose MRSA Screen - Final Complete 09/03/24 01:38 Blood Blood Culture - Preliminary Resulted Assessment 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 Atrial fibrillation with transient RVR, now controlled rate (on Eliquis). Mitral/tricuspid regurgitation, severe degree. Acute on chronic hypoxic respiratory failure. Acute on chronic anemia. Borderline thrombocytopenia. Sepsis with pneumonia. NSTEMI, likely type 2 secondary to above. +cannabinoids/benzodiazepines/opiates. Alzheimer's dementia. Plan/Recommendation I agree with your ongoing assessment and care of plan. Patient has been seen by Briseyad Khan NP on my behalf, her and I discussed the plan with the patient. Atrial fibrillation with rapid ventricular rate event occurred during sedation vacation for which the patient was re-sedated and now at a controlled rate. Continue amiodarone drip per pharmacy protocol. Vasopressors for hemodynamic support. Initiate low-dose dobutamine drip for inotropic support. Currently off full AC therapy given thrombocytopenia which places the patient at a high risk for an acute CVA ([id number] Score of 4 points, HAS-BLED Score 2 points). Replete electrolytes as necessary, K>4 and Mg>2. Continue ABX therapy per primary care team. DVT/VTE prophylaxis: SCDs. Monitor ECG changes and notify accordingly. Very poor prognosis, consider hospice care for end-stage cardiomyopathy. Additional plan as per the hospital course. Plan discussed with: Other NYHA Physical activity limitations: Class4(Severe)discomfort Date of Service: September 04, 2024 Billing Provider: YOKO TRAMMELL MD Cardiology Common Codes: [id number] HOSPITAL CARE YOKO TRAMMELL MD September 04, 2024 14:58
[2024-09-05] VITALS (105 sets, daily range): BP systolic 86–117; BP diastolic 46–77; PULSE 69–131; RESP 11–18; TEMP 55.2–99.1; O2SAT 95–100
[2024-09-05 05:48] LABS: Basophils # (auto) 0 10 ^3/uL (0-0.2); Basophils % (auto) 0.1 % (0.0-2.0); Eosinophils # (auto) 0 10 ^3/uL (0-0.8); Hemoglobin 8.5 g/dL (12.2-16.2); Lymphocytes # (auto) 0.3 10 ^3/uL (0.4-5.4); Mean Corpuscular Hemoglobin 25.8 pg (28.0-32.0); White Blood Cell 12.1 10^3/uL (4.4-10.8)
[2024-09-05 05:50] LABS: Anion Gap 9 (5-15); Carbon Dioxide 28 mmol/L (20-31); Chloride 104 mmol/L (98-107); Potassium 4.4 mmol/L (3.5-5.1); Sodium 141 mmol/L (136-145)
[2024-09-05 05:51] LABS: Calcium 9.1 mg/dL (8.7-10.4)
[2024-09-05 05:52] LABS: Hematocrit 26.4 % (36.0-46.0); Lymphocytes % (auto) 2.3 % (10.0-50.0); Mean Corpuscular Hgb Conc. 32.4 g/dL (32.0-36.0); Mean Corpuscular Volume 79.8 fL (80.0-100.0); Monocytes # (auto) 0.6 10 ^3/uL (0-1.3); Monocytes % (auto) 4.6 % (0.0-12.0); Neutrophils # (auto) 11.2 10 ^3/uL (1.6-8.6); Nucleated Red Blood Cells % 0.3 %; Platelet Count (auto) 93 10^3/uL (140-450); Red Blood Cells 3.31 10^6/uL (4.0-5.20); Red Cell Distribution Width 19.6 % (11.8-14.3)
[2024-09-05 05:56] LABS: BUN/Creatinine Ratio 24.5 (10.0-20.0)
[2024-09-05 06:18] LABS: Blood Urea Nitrogen 25 mg/dL (9-23); Glucose 113 mg/dL (74-106); Phosphorus 5.8 mg/dL (2.4-5.1)
[2024-09-05 06:52] LABS: Anisocytosis Slight; Platelet Estimate Decreased
[2024-09-05 06:53] LABS: Base Excess 2.9 mmol/L (-2.0-3.0)
--- NOTE | 2024-09-05 06:55 | DVH ---
INDICATION: intubated TECHNIQUE: Single frontal view of the chest was obtained COMPARISON: XY CHEST PORTABLE on DOS: 09/04/24, XY CHEST XRAY 1 VIEW on DOS: 09/03/24, XY CHEST PORTABL E on DOS: 09/03/24, XY CHEST PORTABLE on DOS: 09/04/24 FINDINGS: Lines and Tubes: Lines and tubes are unchanged. Lungs: Diffuse interstitial opacities. Pleura: Trace bilateral pleural effusions. No pneumothorax. Cardiomediastinal contours: Cardiomegaly. Bones: No acute osseous abnormality. IMPRESSION: No significant change compared to prior exam.
--- NOTE | 2024-09-05 09:41 | DVHPN2 ---
Progress Note - Dictate Date Seen: September 05, 2024 Medical Necessity Reason Pt with a Central, PICC or Fol: Yes The following are medically ne: Central Line, Ware Catheter vital signs Vital Sign Date Time Temp Pulse Resp B/P (MAP) Pulse Ox O2 Delivery O2 Flow Rate FiO2 09/05/24 09:38 30 09/05/24 09:38 12 98 Mechanical Ventilator+ 09/05/24 09:38 95 09/05/24 09:15 97.2 98/62 (74) 207.0 Total Intake and Output 09/04/24 09/04/24 09/05/24 15:00 23:00 07:00 Intake Total 895.33 ml 604.58 ml 722.08 ml Output Total 950 ml 1400 ml Balance 895.33 ml -345.42 ml -677.92 ml medications Current Medications Medications Dose Ordered Sig/Blanche Route Start Time Stop Time Status Last Admin Dose Admin Acetaminophen/ Hydrocodone Bitart 1 tab Q4HP PRN PO 09/03/24 03:45 Acetaminophen 650 mg Q6HP PRN PO 09/03/24 03:45 Sodium Chloride 10 ml Q8HR IV 09/03/24 06:00 09/05/24 06:32 10 ML Ondansetron HCl 4 mg Q4HP PRN IV 09/03/24 04:15 Cefepime HCl 50 ml @ 12.5 mls/hr Q12HR IV 09/03/24 22:00 09/05/24 07:25 12.5 MLS/HR Pantoprazole Sodium 40 mg DAILY IV 09/04/24 10:00 09/05/24 07:26 40 MG Methylprednisolone Sodium Succinate 40 mg BID IV 09/03/24 10:00 09/05/24 07:26 40 MG Norepinephrine Bitartrate 250 ml @ 3.75 mls/hr Q24H IV 09/03/24 08:00 09/05/24 03:09 22.5 MLS/HR Phenylephrine HCl 250 ml @ 30 mls/hr Q8H20M IV 09/03/24 08:00 09/04/24 06:13 123.75 MLS/HR Propofol 100 ml @ 1.908 mls/ hr Q24H IV 09/03/24 08:00 Midazolam HCl 50 ml @ 1 mls/hr Q24H IV 09/03/24 08:00 09/03/24 07:41 1 MLS/HR Fentanyl Citrate 250 ml @ 2.5 mls/hr Q24H IV 09/03/24 08:00 09/05/24 00:05 20 MLS/HR Furosemide 40 mg BIDD IV 09/03/24 18:00 09/05/24 06:32 40 MG Vancomycin HCl 0 ml @ 0 mls/hr UD IV 09/03/24 10:00 Levalbuterol HCl 1.25 mg Q6HR NEB 09/03/24 12:00 09/05/24 06:29 1.25 MG Ipratropium [place] 0.5 mg Q6HR NEB 09/03/24 12:00 09/05/24 06:29 0.5 MG Phenylephrine HCl 250 ml @ 30 mls/hr Q8H20M IV 09/04/24 01:00 UNV Dobutamine HCl/ Dextrose 250 ml @ 11.1 mls/hr [id number] IV 09/04/24 11:00 09/05/24 07:27 11.1 MLS/HR laboratory and microbiology Laboratory Tests 09/05/24 05:17 Test 09/05/24 05:17 Range/Units Serum Glucose 113 H 74-106 mg/dL Assessment/Plan Impression Acute hypoxemic respiratory failure Acute COPD exacerbation Hx of Alzheimer's disease Pleural effusions Pneumonia NSTEMI Patient seen and examined in [facility] Events On mechanical ventilation S/p intubation PEEP 5, FiO2 30% On Dobutamine drip for inotropic support Labs and imaging reviewed ABG reviewed Management Vent support Titrate to maintain sats 90% or above Sedation holiday daily If patient follows commands, proceed to weaning trial Pressure support /5, extubate when ready Okay to use Precedex as needed Continue antibiotics F/u cultures Bronchodilators Monitor renal function Monitor electrolytes Supplement as needed Pressors as needed for hemodynamic support To maintain a mean arterial pressure of 65 mmHg Echo report reviewed F/u cardiology DVT prophylaxis Critical care time 35 minutes Plan discussed with: Other (Rn) RICK VARGAS MD September 05, 2024 09:41
--- NOTE | 2024-09-05 12:00 | DVHPN2 ---
Consult Progress Note Date Seen: September 05, 2024 Subjective Other Systems: Notified of A-fib with RVR when turned Objective vital signs Vital Sign Date Time Temp Pulse Resp B/P (MAP) Pulse Ox O2 Delivery O2 Flow Rate FiO2 09/05/24 11:51 96 09/05/24 11:51 12 97 Mechanical Ventilator+ 30 30 09/05/24 11:45 97.0 108/77 (87) 206.6 Total Intake and Output 09/04/24 09/04/24 09/05/24 15:00 23:00 07:00 Intake Total 895.33 ml 604.58 ml 722.08 ml Output Total 950 ml 1400 ml Balance 895.33 ml -345.42 ml -677.92 ml medications Current Medications Medications Dose Ordered Sig/Blanche Route Start Time Stop Time Status Last Admin Dose Admin Acetaminophen/ Hydrocodone Bitart 1 tab Q4HP PRN PO 09/03/24 03:45 Acetaminophen 650 mg Q6HP PRN PO 09/03/24 03:45 Sodium Chloride 10 ml Q8HR IV 09/03/24 06:00 09/05/24 09:49 10 ML Ondansetron HCl 4 mg Q4HP PRN IV 09/03/24 04:15 Cefepime HCl 50 ml @ 12.5 mls/hr Q12HR IV 09/03/24 22:00 09/05/24 07:25 12.5 MLS/HR Pantoprazole Sodium 40 mg DAILY IV 09/04/24 10:00 09/05/24 07:26 40 MG Methylprednisolone Sodium Succinate 40 mg BID IV 09/03/24 10:00 09/05/24 07:26 40 MG Norepinephrine Bitartrate 250 ml @ 3.75 mls/hr Q24H IV 09/03/24 08:00 09/05/24 03:09 22.5 MLS/HR Phenylephrine HCl 250 ml @ 30 mls/hr Q8H20M IV 09/03/24 08:00 09/04/24 06:13 123.75 MLS/HR Propofol 100 ml @ 1.908 mls/ hr Q24H IV 09/03/24 08:00 Midazolam HCl 50 ml @ 1 mls/hr Q24H IV 09/03/24 08:00 09/03/24 07:41 1 MLS/HR Fentanyl Citrate 250 ml @ 2.5 mls/hr Q24H IV 09/03/24 08:00 09/05/24 10:42 25 MLS/HR Furosemide 40 mg BIDD IV 09/03/24 18:00 09/05/24 06:32 40 MG Vancomycin HCl 0 ml @ 0 mls/hr UD IV 09/03/24 10:00 Levalbuterol HCl 1.25 mg Q6HR NEB 09/03/24 12:00 09/05/24 11:37 1.25 MG Ipratropium [place] 0.5 mg Q6HR NEB 09/03/24 12:00 09/05/24 11:37 0.5 MG Phenylephrine HCl 250 ml @ 30 mls/hr Q8H20M IV 09/04/24 01:00 UNV Dobutamine HCl/ Dextrose 250 ml @ 11.1 mls/hr [id number] IV 09/04/24 11:00 09/05/24 07:27 11.1 MLS/HR Examination: GENERAL:Abnormal, LUNGS:Abnormal (Endotracheally intubated ), CVS:Abnormal (BLE edema 3+, +JVD), NEURO:Abnormal (Chemically sedated) laboratory and microbiology Laboratory Tests 09/05/24 05:17 Test 09/05/24 05:17 Range/Units Serum Glucose 113 H 74-106 mg/dL Problem List/Assessment/Plan Problem List/Assessment/Plan 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 Bro) Atrial fibrillation with rapid ventricular rate event occurred during sedation vacation and turns. Load on digoxin therapy and continue maintenance dose. Continue amiodarone drip per pharmacy protocol and vasopressors for hemodynamic support. Continue low-dose dobutamine drip for inotropic support. Currently off full AC therapy given thrombocytopenia which places the patient at a high risk for an acute CVA ([id number] Score of 4 points, HAS-BLED Score 2 points). Replete electrolytes as necessary, K>4 and Mg>2. Continue ABX therapy per primary care team. Monitor H&H closely. DVT/VTE prophylaxis: SCDs. Monitor ECG changes and notify accordingly. Very poor prognosis, consider hospice care for end-stage cardiomyopathy. Thank you for allowing us to participate in this patient's care. Please call if you have any questions or concerns. Critical care time: 40 min. This medical document was created using an electronic medical record system with voice recognition software and computerized dictation system. Although this document has been carefully reviewed, there might still be some phonetic and typographical errors. Occasional wrong-word or ``sound-alike substitutions may have occurred due to the inherent limitations of voice recognition software. These areas are purely typographical due to imperfections of the software programs and do not reflect any compromise in the patient's medical care. Please read the chart carefully and recognize, using context, where these substitutions have occurred. Plan discussed with: Other Date of Service: September 05, 2024 Billing Provider: HEATHER SANTOS Cardiology Common Codes: [id number] CARE 30-74 MIN HEATHER SANTOS September 05, 2024 12:00
[2024-09-05] MEDS: DIGOXIN (250MCG/ML) 2 ML AMPULE IV ONE (12:24)
--- NOTE | 2024-09-05 17:34 | DVHPN2 ---
Subjective intubated and sedated Changes from previous H/P or p: No Changes Objective Vitals Vital Signs Date Time Temp Pulse Resp B/P (MAP) Pulse Ox O2 Delivery O2 Flow Rate FiO2 09/05/24 17:15 97.7 86 12 91/59 (70) 97 207.9 09/05/24 15:47 30 09/05/24 15:47 Mechanical Ventilator+ Intake/Output Intake and Output 09/05/24 07:00 Intake Total 2221.99 ml Output Total 2350 ml Balance -128.01 ml Intake Oral 0 ml IV Total 2221.99 ml Output Urine Total 2350 ml General Appearance: Other (intubated and sedated) Lungs: Clear to auscultation Cardiovascular: Regular rate, Normal S1, Normal S2 Abdomen: Soft, No tenderness Rectal: Deferred Skin: Other (LE swelling) Medications Current Medications Medications Dose Ordered Sig/Blanche Route Start Time Stop Time Status Last Admin Dose Admin Acetaminophen/ Hydrocodone Bitart 1 tab Q4HP PRN PO 09/03/24 03:45 Acetaminophen 650 mg Q6HP PRN PO 09/03/24 03:45 Sodium Chloride 10 ml Q8HR IV 09/03/24 06:00 09/05/24 09:49 10 ML Ondansetron HCl 4 mg Q4HP PRN IV 09/03/24 04:15 Cefepime HCl 50 ml @ 12.5 mls/hr Q12HR IV 09/03/24 22:00 09/05/24 07:25 12.5 MLS/HR Pantoprazole Sodium 40 mg DAILY IV 09/04/24 10:00 09/05/24 07:26 40 MG Methylprednisolone Sodium Succinate 40 mg BID IV 09/03/24 10:00 09/05/24 07:26 40 MG Norepinephrine Bitartrate 250 ml @ 3.75 mls/hr Q24H IV 09/03/24 08:00 09/05/24 16:14 11.25 MLS/HR Phenylephrine HCl 250 ml @ 30 mls/hr Q8H20M IV 09/03/24 08:00 09/04/24 06:13 123.75 MLS/HR Propofol 100 ml @ 1.908 mls/ hr Q24H IV 09/03/24 08:00 Midazolam HCl 50 ml @ 1 mls/hr Q24H IV 09/03/24 08:00 09/03/24 07:41 1 MLS/HR Fentanyl Citrate 250 ml @ 2.5 mls/hr Q24H IV 09/03/24 08:00 09/05/24 10:42 25 MLS/HR Furosemide 40 mg BIDD IV 09/03/24 18:00 09/05/24 16:55 40 MG Vancomycin HCl 0 ml @ 0 mls/hr UD IV 09/03/24 10:00 Levalbuterol HCl 1.25 mg Q6HR NEB 09/03/24 12:00 09/05/24 11:37 1.25 MG Ipratropium [place] 0.5 mg Q6HR NEB 09/03/24 12:00 09/05/24 11:37 0.5 MG Phenylephrine HCl 250 ml @ 30 mls/hr Q8H20M IV 09/04/24 01:00 UNV Dobutamine HCl/ Dextrose 250 ml @ 11.1 mls/hr [id number] IV 09/04/24 11:00 09/05/24 07:27 11.1 MLS/HR Digoxin 125 mcg DAILY IV 09/06/24 10:00 Laboratory Results Laboratory Tests 09/05/24 05:17 Chemistry Test 09/05/24 05:17 Calcium Level 9.1 mg/dL (8.7-10.4) Magnesium Level 2.0 mg/dL (1.6-2.6) Phosphorus Level 5.8 mg/dL (2.4-5.1) H Urinalysis Test 09/03/24 11:31 Urine Color Yellow (Yellow) Urine Clarity Turbid (Clear) H Urine pH 8.5 (5.0-9.0) Urine Specific [place] 1.013 (1.001-1.035) Urine Protein Trace (Negative) H Urine Ketones Negative (Negative) Urine Blood Negative /uL (Negative) Urine Nitrite Negative (Negative) Urine Bilirubin Negative (Negative) Urine Urobilinogen Normal mg/dL (Negative) Urine Leukocyte Esterase Negative /uL (Negative) Urine RBC 4 /hpf (0 - 4) Urine Microscopic WBC 1 /HPF (0-5) Urine Squamous Epithelial Cells Few /hpf (<5) Urine Bacteria None seen /hpf (None Seen) Urine Hyaline Casts Mod /lpf (0 - 2) Urine Mucus Few (None Seen) Urine Glucose Normal mg/dL (Normal) Blood Gas Results Test 09/05/24 06:47 Arterial Blood pH 7.337 (7.350-7.450) FiO2 % 30.0 Microbiology Microbiology Date/Time Source Procedure Growth Status 09/03/24 14:00 Sputum Gram Stain - Final Resulted 09/03/24 14:00 Sputum Respiratory Culture - Preliminary Resulted 09/03/24 11:31 Urine - [place] Urine Culture - Final Proteus mirabilis - ESBL Enterococcus faecalis Complete 09/03/24 10:20 Nose MRSA Screen - Final Complete 09/03/24 01:38 Blood Blood Culture - Preliminary Resulted Assessment/Plan Assessment/Plan Assessment and plan: NEURO: Acute hypercapnic encephalopathy carbon dioxide narcosis H/O of Alzheimer's dementia - on mechanical ventilation with FiO2 50%, peep 5, respiratory rate 12 and tidal volume 450 mL RASS score: -3 CARDIOVASCULAR: Possible chronic diastolic heart failure NSTEMI type 2 likely secondary to supply/demand mismatch Paroxysmal atrial fibrillation with secondary hypercoagulable state History of coronary artery disease - EKG showed atrial fibrillation, old anterior infarct - CXR showed cardiomegaly with mild pulmonary vascular congestion - BNP is normal - pending echo - IV Lasix 40 mg b.i.d. PULMONARY: Acute hypercapnic/ hypoxic respiratory failure Acute exacerbation of chronic COPD Possible Gram-positive/Gram-negative community-acquired pneumonia Possible aspiration pneumonia Sepsis due to pneumonia Rule out pulmonary embolism Mild left-sided pleural effusion - CXR showed Mild cardiomegaly with pulmonary vascular congestion. Small left pleural effusion and left basilar opacities which could reflect atelectasis or pneumonia - pending CT angio - COVID, flu are negative and pending MRSA - IV methylprednisolone 40 mg b.i.d. - IV Lasix 40 mg b.i.d. - med neb with levalbuterol and ipratropium q.6 hours - IV vancomycin as per pharmacy and IV cefepime 1 g q.12 hours - Pending blood culture, urine bacterial culture and sputum culture GASTROINTESTINAL: Transaminitis likely due to sepsis GENITOURINARY: UDS is positive for opioids, benzodiazepines and cannabinoids Plasma alcohol is more than 5.8 ENDOCRINE: Hyperglycemia likely due to steroid induced HEME: Leukopenia likely due to sepsis Chronic mild normocytic anemia likely due to anemia of chronic disease INFECTIOUS DISEASE: Sepsis due to pneumonia Leukopenia, hypothermia and lactic acidosis likely secondary to sepsis Possible aspiration pneumonia Community-acquired Gram-positive/Gram-negative pneumonia - Pending blood culture, urine bacterial culture and sputum culture - IV vancomycin as per pharmacy and IV cefepime 1 g q.12 hours MUSCULOSKELETAL: Ruled out DVT Possible Lymphedema of bilateral lower limb DIET: NPO DVT prophylax: Lovenox GI prophylaxis: Protonix Bowel regimen: Code status: Full code LINES/DRAINS/ACCESS: Right IJ triple-lumen catheter placed on 09/03/2024 ETT: Intubated on 09/03/2024 IV access: Drips: Fentanyl [place] catheter: Placed on 09/02/2024 DISPOSITION: KWAME Patient's status discussed with family Critical care time spent more than 81 minutes, including patient care, chart review, and updating the family. Excluding any procedures. Plan discussed with: Other (nurse) Date of Service: September 05, 2024 Billing Provider: RD KRISHNA MD Common Visit Codes: [id number] INP/OBS CARE(HIGH), [id number] CARE 30-[address] KRISHNA MD September 05, 2024 17:34
[2024-09-05] MEDS: DEXMEDETOMIDINE HCL IN D5W 100 ML IV SCH (19:35)
[2024-09-06] VITALS (106 sets, daily range): BP systolic 101–151; BP diastolic 55–97; PULSE 65–151; RESP 11–25; TEMP 97.5–98.8; O2SAT 30–100
[2024-09-06 05:34] LABS: Basophils # (auto) 0 10 ^3/uL (0-0.2); Eosinophils # (auto) 0 10 ^3/uL (0-0.8); Hematocrit 26.4 % (36.0-46.0); Hemoglobin 8.6 g/dL (12.2-16.2); Lymphocytes # (auto) 0.3 10 ^3/uL (0.4-5.4); Lymphocytes % (auto) 2.8 % (10.0-50.0); Mean Corpuscular Hemoglobin 25.8 pg (28.0-32.0); Mean Corpuscular Hgb Conc. 32.6 g/dL (32.0-36.0); Mean Corpuscular Volume 79.2 fL (80.0-100.0); Monocytes # (auto) 0.6 10 ^3/uL (0-1.3); Monocytes % (auto) 5.4 % (0.0-12.0); Neutrophils # (auto) 9.9 10 ^3/uL (1.6-8.6); Neutrophils % (auto) 91.8 % (37.0-80.0); Nucleated Red Blood Cells % 0.4 %; Platelet Count (auto) 92 10^3/uL (140-450); Red Blood Cells 3.33 10^6/uL (4.0-5.20); White Blood Cell 10.8 10^3/uL (4.4-10.8)
[2024-09-06 05:43] LABS: Alanine Aminotransferase 23 U/L (7-40); Albumin 3.3 g/dL (3.2-4.8); Alkaline Phosphatase 64 U/L (46-116); Anion Gap 9 (5-15); Calcium 8.9 mg/dL (8.7-10.4); Carbon Dioxide 29 mmol/L (20-31); Chloride 103 mmol/L (98-107); Potassium 3.6 mmol/L (3.5-5.1); Sodium 141 mmol/L (136-145); Total Protein 6.1 g/dL (5.7-8.2)
[2024-09-06 05:48] LABS: Aspartate Aminotransferase 45 U/L (13-40); Bilirubin, Total 1.1 mg/dL (0.2-1.0); Blood Urea Nitrogen 27 mg/dL (9-23); Glucose 121 mg/dL (74-106)
--- NOTE | 2024-09-06 05:53 | DVH ---
INDICATION: respiratory failure TECHNIQUE: Single frontal view of the chest was obtained COMPARISON: XY CHEST PORTABLE on DOS: 09/05/24, XY CHEST PORTABLE on DOS: 09/04/24, XY CHEST XRAY 1 VIE W on DOS: 09/03/24, XY CHEST PORTABLE on DOS: 09/03/24, XY CHEST PORTABLE on DOS: 09/05/24 FINDINGS: Lines and Tubes: Lines and tubes are unchanged. Lungs: Diffuse interstitial opacities. Pleura: Trace bilateral pleural effusions. No pneumothorax. Cardiomediastinal contours: Cardiomegaly. Bones: No acute osseous abnormality. IMPRESSION: No significant change compared to prior exam.
[2024-09-06] MEDS: DIGOXIN (250MCG/ML) 2 ML AMPULE IV SCH (08:37)
--- NOTE | 2024-09-06 10:06 | DVHPN2 ---
Consult Progress Note Date Seen: September 06, 2024 Objective vital signs Vital Sign Date Time Temp Pulse Resp B/P (MAP) Pulse Ox O2 Delivery O2 Flow Rate FiO2 09/06/24 09:00 123/69 09/06/24 08:37 76 09/06/24 08:14 12 30 30 09/06/24 08:00 Mechanical Ventilator+ 09/06/24 08:00 97.5 207.5 Total Intake and Output 09/05/24 09/05/24 09/06/24 15:00 23:00 07:00 Intake Total 578.33 ml 536.33 ml 518.07 ml Output Total 750 ml 1250 ml Balance 578.33 ml -213.67 ml -731.93 ml medications Current Medications Medications Dose Ordered Sig/Blanche Route Start Time Stop Time Status Last Admin Dose Admin Acetaminophen/ Hydrocodone Bitart 1 tab Q4HP PRN PO 09/03/24 03:45 Acetaminophen 650 mg Q6HP PRN PO 09/03/24 03:45 Sodium Chloride 10 ml Q8HR IV 09/03/24 06:00 09/06/24 05:23 10 ML Ondansetron HCl 4 mg Q4HP PRN IV 09/03/24 04:15 Cefepime HCl 50 ml @ 12.5 mls/hr Q12HR IV 09/03/24 22:00 09/06/24 08:38 12.5 MLS/HR Pantoprazole Sodium 40 mg DAILY IV 09/04/24 10:00 09/06/24 08:38 40 MG Methylprednisolone Sodium Succinate 40 mg BID IV 09/03/24 10:00 09/06/24 08:38 40 MG Norepinephrine Bitartrate 250 ml @ 3.75 mls/hr Q24H IV 09/03/24 08:00 09/05/24 16:14 11.25 MLS/HR Phenylephrine HCl 250 ml @ 30 mls/hr Q8H20M IV 09/03/24 08:00 09/04/24 06:13 123.75 MLS/HR Propofol 100 ml @ 1.908 mls/ hr Q24H IV 09/03/24 08:00 Midazolam HCl 50 ml @ 1 mls/hr Q24H IV 09/03/24 08:00 09/03/24 07:41 1 MLS/HR Fentanyl Citrate 250 ml @ 2.5 mls/hr Q24H IV 09/03/24 08:00 09/06/24 06:28 12.5 MLS/HR Furosemide 40 mg BIDD IV 09/03/24 18:00 09/06/24 05:23 40 MG Vancomycin HCl 0 ml @ 0 mls/hr UD IV 09/03/24 10:00 Levalbuterol HCl 1.25 mg Q6HR NEB 09/03/24 12:00 09/06/24 06:42 1.25 MG Ipratropium [place] 0.5 mg Q6HR NEB 09/03/24 12:00 09/06/24 06:42 0.5 MG Phenylephrine HCl 250 ml @ 30 mls/hr Q8H20M IV 09/04/24 01:00 UNV Dobutamine HCl/ Dextrose 250 ml @ 11.1 mls/hr [id number] IV 09/04/24 11:00 09/06/24 05:22 11.1 MLS/HR Digoxin 125 mcg DAILY IV 09/06/24 10:00 09/06/24 08:37 125 MCG Examination: GENERAL:Abnormal (Chronically ill), LUNGS:Abnormal (Endotracheally intubated 30% FiO2), CVS:Abnormal (surveillance system monitor revealed intermittent A-fib with RVR. Currently controlled rate. 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 Bro) Continue amiodarone drip per pharmacy protocol and digoxin therapy for rate control. Continue low-dose dobutamine drip for inotropic support. Currently off full AC therapy given thrombocytopenia which places the patient at a high risk for an acute CVA ([id number] Score of 4 points, HAS-BLED Score 2 points). Replete electrolytes as necessary, K>4 and Mg>2. Continue ABX therapy per primary care team. Monitor H&H closely. DVT/VTE prophylaxis: SCDs. Monitor ECG changes and notify accordingly. Very poor prognosis, consider hospice care for end-stage cardiomyopathy. Thank you for allowing us to participate in this patient's care. Please call if you have any questions or concerns. Critical care time: 30 min. This medical document was created using an electronic medical record system with voice recognition software and computerized dictation system. Although this document has been carefully reviewed, there might still be some phonetic and typographical errors. Occasional wrong-word or ``sound-alike substitutions may have occurred due to the inherent limitations of voice recognition software. These areas are purely typographical due to imperfections of the software programs and do not reflect any compromise in the patient's medical care. Please read the chart carefully and recognize, using context, where these substitutions have occurred. Plan discussed with: Other Dietary Evaluation Review Comments: 1) If patient remains NPO > 7 days, initiate EN/TPN to meet at least 75% of estimated daily needs 2) If GI route is preferred, consider Vital AF 1.2 @ 50 mL/hr goal rate as tolerated to meet increased protein needs. TF regimen will provide 1440 kcals, 90g Pro, and 973 mL per 24 hrs. Goal rate will provide ~ 86% estimated daily energy needs and ~76% estimated daily protein needs. 3) Advance patient to regular diet when medically feasible, pending SOFTBALL PLAYER approval 4) Collect HbA1C 5) Refer to outpatient RD/CDCES for weight management 6) Follow-up with cardiology and pulmonology 7) Continue to monitor I&O, labs, and skin integrity Expected Outcomes/Goals: 1) patient to receive nutrition support within 7 days of NPO status 2) labs to improve 3) diet to advance 4) f/u in 2-3 days Date of Service: September 06, 2024 Billing Provider: HEATHER SANTOS Cardiology Common Codes: [id number] CARE 30-74 MIN HEATHER SANTOS September 06, 2024 10:06
[2024-09-06] MEDS: POTASSIUM CHL 20MEQ/100ML 100 ML IV SCH (12:25)
[2024-09-06] MEDS: MEROPENEM 1GM IVPB 50 ML IV ONE (15:48)
--- NOTE | 2024-09-06 18:08 | DVHPNRES ---
Progress Note Date Seen: September 06, 2024 Resident Creating Document: KATHRYN ATKINS RESIDENT Medical Necessity Reason Pt with a Central, PICC or Fol: Yes The following are medically ne: Central Line, Ware Catheter Subjective Review of Systems This is a 74-year-old female with past medical history of COPD on home oxygen 2- 3 L, Alzheimer's dementia, anxiety, depression was brought in by EMS from [facility] nursing facility due to acute hypoxia. Patient has baseline dementia and confused. Information was gathered from chart reviewing and talking to the nursing staff. According to the staff the patient developed respiratory distress and become hypoxic around 4:00 p.m. at the [facility] facility was desaturating to 70s and called the EMS . In the ED patient was also desaturating to 70s put on nasal cannula that did not relieved the hypoxia and started on BiPAP the patient was overnight BiPAP and in the morning ABG revealed severe respiratory acidosis, patient became more altered and was not able to maintain the airway and emergency intubation was done. Family was contracted before intubation but could not reach the family and emergency intubation was done to save the patient. Patient was seen and examined on the bedside. The patient is on mechanical ventilation with FiO2 30%, tidal volume 450 mL, peep 5 and respiratory rate 12. Patient is on Precedex drip, amiodarone drip and dobutamine drip right now and scheduled for CPAP trial tomorrow. Objective vital signs Vital Sign Date Time Temp Pulse Resp B/P (MAP) Pulse Ox O2 Delivery O2 Flow Rate FiO2 09/06/24 17:15 98.6 107 15 136/87 (103) 98 209.5 09/06/24 16:18 30 09/06/24 16:00 Mechanical Ventilator+ Total Intake and Output 09/05/24 09/05/24 09/06/24 15:00 23:00 07:00 Intake Total 578.33 ml 536.33 ml 518.07 ml Output Total 750 ml 1250 ml Balance 578.33 ml -213.67 ml -731.93 ml medications Current Medications Medications Dose Ordered Sig/Blanche Route Start Time Stop Time Status Last Admin Dose Admin Acetaminophen/ Hydrocodone Bitart 1 tab Q4HP PRN PO 09/03/24 03:45 Acetaminophen 650 mg Q6HP PRN PO 09/03/24 03:45 Sodium Chloride 10 ml Q8HR IV 09/03/24 06:00 09/06/24 12:25 10 ML Ondansetron HCl 4 mg Q4HP PRN IV 09/03/24 04:15 Pantoprazole Sodium 40 mg DAILY IV 09/04/24 10:00 09/06/24 08:38 40 MG Methylprednisolone Sodium Succinate 40 mg BID IV 09/03/24 10:00 09/06/24 08:38 40 MG Norepinephrine Bitartrate 250 ml @ 3.75 mls/hr Q24H IV 09/03/24 08:00 09/05/24 16:14 11.25 MLS/HR Phenylephrine HCl 250 ml @ 30 mls/hr Q8H20M IV 09/03/24 08:00 09/04/24 06:13 123.75 MLS/HR Propofol 100 ml @ 1.908 mls/ hr Q24H IV 09/03/24 08:00 Midazolam HCl 50 ml @ 1 mls/hr Q24H IV 09/03/24 08:00 09/03/24 07:41 1 MLS/HR Fentanyl Citrate 250 ml @ 2.5 mls/hr Q24H IV 09/03/24 08:00 09/06/24 06:28 12.5 MLS/HR Furosemide 40 mg BIDD IV 09/03/24 18:00 09/06/24 17:10 40 MG Vancomycin HCl 0 ml @ 0 mls/hr UD IV 09/03/24 10:00 Levalbuterol HCl 1.25 mg Q6HR NEB 09/03/24 12:00 09/06/24 11:36 1.25 MG Ipratropium [place] 0.5 mg Q6HR NEB 09/03/24 12:00 09/06/24 11:36 0.5 MG Phenylephrine HCl 250 ml @ 30 mls/hr Q8H20M IV 09/04/24 01:00 UNV Dobutamine HCl/ Dextrose 250 ml @ 11.1 mls/hr [id number] IV 09/04/24 11:00 09/06/24 05:22 11.1 MLS/HR Digoxin 125 mcg DAILY IV 09/06/24 10:00 09/06/24 08:37 125 MCG Meropenem 50 ml @ 17 mls/hr Q8HR IV 09/06/24 22:00 Examination General: RASS -3, afebrile, mucosae are moist Cardiovascular: Normal S1 and S2. No murmurs, gallops or rubs Respiratory: Mechanically assisted ventilation, equal bilateral airway entree. Bilateral wheezing and coarse crackles. Abdomen: Soft, nontender, no organomegaly, normal bowel sounds MSK/skin: Mobilization of limbs cannot be evaluated. Skin is dry and warm. bilateral edema ++. Neurological: Orientation cannot be assessed. No apparent motor no sensitive deficits. Pupils are isocoric and reactive laboratory and microbiology Laboratory Tests 09/06/24 04:47 Test 09/06/24 04:47 Range/Units Serum Glucose 121 H 74-106 mg/dL Microbiology Date/Time Source Procedure Growth Status 09/03/24 14:00 Sputum Gram Stain - Final Complete 09/03/24 14:00 Sputum Respiratory Culture - Final Complete 09/03/24 11:31 Urine - [place] Urine Culture - Final Proteus mirabilis - ESBL Enterococcus faecalis Complete 09/03/24 10:20 Nose MRSA Screen - Final Complete 09/03/24 01:38 Blood Blood Culture - Preliminary Resulted Labs and/or images reviewed: Labs reviewed by me, Image(s) reviewed by me Problem List/Assessment/Plan Problem List/Assessment/Plan Assessment and plan: NEURO: Acute hypercapnic encephalopathy carbon dioxide narcosis H/O of Alzheimer's dementia - on mechanical ventilation with FiO2 50%, peep 5, respiratory rate 12 and tidal volume 450 mL RASS score: -3 CARDIOVASCULAR: Possible acute on chronic decompensated systolic heart failure Dilated Cardiomyopathy likely due to alcohol abuse disorder NSTEMI type 2 likely secondary to supply/demand mismatch Paroxysmal atrial fibrillation with secondary hypercoagulable state Episodes of atrial fibrillation with RVR and on amiodarone drip History of coronary artery disease - [id number] Score of 4 points, HAS-BLED Score 2 points - EKG showed atrial fibrillation, old anterior infarct - CXR showed cardiomegaly with mild pulmonary vascular congestion - BNP is normal - Echo showed severe global hypokinesis, EF 15%, severe MR and TR and end-stage dilated cardiomyopathy . - IV Lasix 40 mg b.i.d. - cardiology on board - IV dobutamine drip as per protocol - Continue IV amiodarone drip - No anticoagulant is given to the patient at this time because of thrombocytopenia PULMONARY: Acute hypercapnic/ hypoxic respiratory failure Acute exacerbation of chronic COPD Possible Gram-positive/Gram-negative community-acquired pneumonia Possible aspiration pneumonia Sepsis due to pneumonia Ruled out pulmonary embolism Mild left-sided pleural effusion - CXR showed Mild cardiomegaly with pulmonary vascular congestion. Small left pleural effusion and left basilar opacities which could reflect atelectasis or pneumonia - CT angio showed no evidence of acute pulmonary emboli. Cardiomegaly with evidence of CHF, bilateral pleural effusions and pulmonary edema. The differential diagnosis for pulmonary opacities include pneumonia. Mild mediastinal lymphadenopathy. - COVID, flu and MRSA are negative. - IV methylprednisolone 40 mg b.i.d. - IV Lasix 40 mg b.i.d. - med neb with levalbuterol and ipratropium q.6 hours - IV vancomycin as per pharmacy and IV meropenem 1 g q.8 hours - Blood culture and sputum culture are negative and urine culture demonstrated ESBL and Enterococcus faecalis GASTROINTESTINAL: Transaminitis likely due to sepsis GENITOURINARY: Acute complicated cystitis due to ESBL and Enterococcus , dobutamine Alcohol Abuse disorder - Urine culture is positive for ESBL and Enterococcus - Continue IV vancomycin as per pharmacy and IV meropenem 1 g Q 8 hours - UDS is positive for opioids, benzodiazepines and cannabinoids - Plasma alcohol is more than 5.8 ENDOCRINE: Hyperglycemia likely due to steroid induced HEME: Leukopenia likely due to sepsis Chronic mild normocytic anemia likely due to anemia of chronic disease INFECTIOUS DISEASE: Sepsis due to pneumonia Leukopenia, hypothermia and lactic acidosis likely secondary to sepsis Possible aspiration pneumonia Community-acquired Gram-positive/Gram-negative pneumonia - Blood culture and sputum culture are negative and urine culture demonstrated ESBL and Enterococcus faecalis - IV vancomycin as per pharmacy and IV meropenem 1 g q.8 hours MUSCULOSKELETAL: Ruled out DVT Possible Lymphedema of bilateral lower limb DIET: NPO DVT prophylax: Lovenox GI prophylaxis: Protonix Bowel regimen: Code status: Full code LINES/DRAINS/ACCESS: Right IJ triple-lumen catheter placed on 09/03/2024 ETT: Intubated on 09/03/2024 IV access: Drips: Precedex, amio, dobutamine Ware catheter: Placed on 09/02/2024 DISPOSITION: KWAME Patient's status discussed with family Critical care time spent more than 81 minutes, including patient care, chart review, and updating the family. Excluding any procedures. Case discussed with Dr. Davila Plan discussed with: Other (Granddaughter, RN) My Orders My Orders Orders - KATHRYN ATKINS Procedure Category Date Status Time Meropenem 1gm Ivpb PHA 09/06/24 In Process (Merrem 1gm/ Ns) 22:00 Blood Culture PAIGE 09/06/24 In Process 14:09 Vancomycin 500mg/100ml PHA 09/06/24 In Process 22:00 Vancomycin,Random LAB 09/07/24 Verified 05:00 Creatinine LAB 09/07/24 Verified 05:00 Dietary Evaluation Review Comments: 1) If patient remains NPO > 7 days, initiate EN/TPN to meet at least 75% of estimated daily needs 2) If GI route is preferred, consider Vital AF 1.2 @ 50 mL/hr goal rate as tolerated to meet increased protein needs. TF regimen will provide 1440 kcals, 90g Pro, and 973 mL per 24 hrs. Goal rate will provide ~ 86% estimated daily energy needs and ~76% estimated daily protein needs. 3) Advance patient to regular diet when medically feasible, pending EDUCATION PROFESSOR approval 4) Collect HbA1C 5) Refer to outpatient RD/CDCES for weight management 6) Follow-up with cardiology and pulmonology 7) Continue to monitor I&O, labs, and skin integrity Expected Outcomes/Goals: 1) patient to receive nutrition support within 7 days of NPO status 2) labs to improve 3) diet to advance 4) f/u in 2-3 days KATHRYN ATKINS September 06, 2024 18:08
[2024-09-06] MEDS ORDERED: Jevity 1.2 Cal/Fiber 1 Liter GT SCH (20:15)
[2024-09-06] MEDS: VANCOMYCIN 500mg/100mL 100 ML IV ONE (21:30)
[2024-09-06] MEDS: MEROPENEM 1GM IVPB 50 ML IV SCH (21:58)
[2024-09-07] VITALS (111 sets, daily range): BP systolic 105–155; BP diastolic 63–104; PULSE 60–125; RESP 10–34; TEMP 96.8–99.1; O2SAT 95–100
--- NOTE | 2024-09-07 04:46 | DVH ---
CHEST RADIOGRAPH Indication: Mechanical ventilation Technique: Single frontal view of the chest was obtained COMPARISON: XY CHEST PORTABLE on DOS: 09/06/24, XY CHEST PORTABLE on DOS: 09/05/24, XY CHEST PORTABLE o n DOS: 09/04/24, XY CHEST XRAY 1 VIEW on DOS: 09/03/24, XY CHEST PORTABLE on DOS: 09/03/24 FINDINGS: Lines and Tubes: Endotracheal tube, enteric catheter and right central venous catheter in satisfactor y position Lungs: Multifocal airspace disease Pleura: No effusion. No pneumothorax. Cardiomediastinal contours: Cardiomegaly Bones: Unremarkable IMPRESSION: Lines and tubes in satisfactory position. No significant interval change.
[2024-09-07 05:05] LABS: Basophils # (auto) 0 10 ^3/uL (0-0.2); Eosinophils # (auto) 0 10 ^3/uL (0-0.8); Hematocrit 27.6 % (36.0-46.0); Hemoglobin 9.1 g/dL (12.2-16.2); Lymphocytes # (auto) 0.5 10 ^3/uL (0.4-5.4); Lymphocytes % (auto) 5.5 % (10.0-50.0); Mean Corpuscular Hemoglobin 26.1 pg (28.0-32.0); Mean Corpuscular Hgb Conc. 33.1 g/dL (32.0-36.0); Mean Corpuscular Volume 78.9 fL (80.0-100.0); Monocytes # (auto) 0.4 10 ^3/uL (0-1.3); Monocytes % (auto) 5.1 % (0.0-12.0); Neutrophils # (auto) 7.5 10 ^3/uL (1.6-8.6); Neutrophils % (auto) 89.4 % (37.0-80.0); Nucleated Red Blood Cells % 0.3 %; Platelet Count (auto) 91 10^3/uL (140-450); Red Blood Cells 3.49 10^6/uL (4.0-5.20); Red Cell Distribution Width 18.6 % (11.8-14.3); White Blood Cell 8.4 10^3/uL (4.4-10.8)
[2024-09-07 05:11] LABS: Chloride 99 mmol/L (98-107); Sodium 141 mmol/L (136-145)
[2024-09-07 05:12] LABS: Anion Gap 8 (5-15)
[2024-09-07 05:13] LABS: Calcium 9.2 mg/dL (8.7-10.4)
[2024-09-07 05:18] LABS: BUN/Creatinine Ratio 28.9 (10.0-20.0)
[2024-09-07 05:31] LABS: Blood Urea Nitrogen 24 mg/dL (9-23); Carbon Dioxide 34 mmol/L (20-31); Glucose 132 mg/dL (74-106); Potassium 3.2 mmol/L (3.5-5.1)
[2024-09-07] MEDS: POTASSIUM CHL 20MEQ/100ML 100 ML IV SCH ×2 (06:03→11:10)
[2024-09-07 09:29] LABS: Base Excess 8.7 mmol/L (-2.0-3.0)
--- NOTE | 2024-09-07 10:26 | DVHPN2 ---
Consult Progress Note Date Seen: September 07, 2024 Subjective Other Systems: Notified of transient intermittent A-fib Objective vital signs Vital Sign Date Time Temp Pulse Resp B/P (MAP) Pulse Ox O2 Delivery O2 Flow Rate FiO2 09/07/24 09:28 64 09/07/24 08:15 97.5 12 133/91 (105) 100 207.5 09/07/24 08:05 30 09/07/24 08:00 Mechanical Ventilator+ Total Intake and Output 09/06/24 09/06/24 09/07/24 15:00 23:00 07:00 Intake Total 524 ml 453.70 ml 476.22 ml Output Total 2325 ml 2350 ml Balance 524 ml -1871.30 ml -1873.78 ml medications Current Medications Medications Dose Ordered Sig/Blanche Route Start Time Stop Time Status Last Admin Dose Admin Acetaminophen 650 mg Q6HP PRN PO 09/03/24 03:45 Sodium Chloride 10 ml Q8HR IV 09/03/24 06:00 09/07/24 05:40 10 ML Ondansetron HCl 4 mg Q4HP PRN IV 09/03/24 04:15 Pantoprazole Sodium 40 mg DAILY IV 09/04/24 10:00 09/07/24 09:27 40 MG Methylprednisolone Sodium Succinate 40 mg BID IV 09/03/24 10:00 09/07/24 09:27 40 MG Norepinephrine Bitartrate 250 ml @ 3.75 mls/hr Q24H IV 09/03/24 08:00 09/05/24 16:14 11.25 MLS/HR Phenylephrine HCl 250 ml @ 30 mls/hr Q8H20M IV 09/03/24 08:00 09/04/24 06:13 123.75 MLS/HR Propofol 100 ml @ 1.908 mls/ hr Q24H IV 09/03/24 08:00 Midazolam HCl 50 ml @ 1 mls/hr Q24H IV 09/03/24 08:00 09/03/24 07:41 1 MLS/HR Fentanyl Citrate 250 ml @ 2.5 mls/hr Q24H IV 09/03/24 08:00 09/06/24 06:28 12.5 MLS/HR Furosemide 40 mg BIDD IV 09/03/24 18:00 09/07/24 06:04 40 MG Vancomycin HCl 0 ml @ 0 mls/hr UD IV 09/03/24 10:00 Levalbuterol HCl 1.25 mg Q6HR NEB 09/03/24 12:00 09/07/24 07:32 1.25 MG Ipratropium [place] 0.5 mg Q6HR NEB 09/03/24 12:00 09/07/24 07:32 0.5 MG Phenylephrine HCl 250 ml @ 30 mls/hr Q8H20M IV 09/04/24 01:00 UNV Dobutamine HCl/ Dextrose 250 ml @ 11.1 mls/hr [id number] IV 09/04/24 11:00 09/07/24 05:32 11.1 MLS/HR Digoxin 125 mcg DAILY IV 09/06/24 10:00 09/07/24 09:28 125 MCG Meropenem 50 ml @ 17 mls/hr Q8HR IV 09/06/24 22:00 09/07/24 05:39 17 MLS/HR Enteral Nutritional Formula 1,000 ml 50ML/HR GT 09/07/24 10:15 UNV Examination: GENERAL:Abnormal (Chronically ill), LUNGS:Abnormal (Endotracheally intubated), CVS:Abnormal (A-fib controlled rate. 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 Bro) Continue amiodarone drip per pharmacy protocol, digoxin therapy & initiate low- dose beta-samantha for rate control. Continue low-dose dobutamine drip for inotropic support. Currently off full AC therapy given thrombocytopenia which places the patient at a high risk for an acute CVA ([id number] Score of 4 points, HAS-BLED Score 2 points). Replete electrolytes as necessary, K>4 and Mg>2. Continue ABX therapy per primary care team. Monitor H&H closely. DVT/VTE prophylaxis: SCDs. Monitor ECG changes and notify accordingly. Very poor prognosis, consider hospice care for end-stage cardiomyopathy. Thank you for allowing us to participate in this patient's care. Please call if you have any questions or concerns. Critical care time: 30 min. This medical document was created using an electronic medical record system with voice recognition software and computerized dictation system. Although this document has been carefully reviewed, there might still be some phonetic and typographical errors. Occasional wrong-word or ``sound-alike substitutions may have occurred due to the inherent limitations of voice recognition software. These areas are purely typographical due to imperfections of the software programs and do not reflect any compromise in the patient's medical care. Please read the chart carefully and recognize, using context, where these substitutions have occurred. Plan discussed with: Other Dietary Evaluation Review Comments: 1) If patient remains NPO > 7 days, initiate EN/TPN to meet at least 75% of estimated daily needs 2) If GI route is preferred, consider Vital AF 1.2 @ 50 mL/hr goal rate as tolerated to meet increased protein needs. TF regimen will provide 1440 kcals, 90g Pro, and 973 mL per 24 hrs. Goal rate will provide ~ 86% estimated daily energy needs and ~76% estimated daily protein needs. 3) Advance patient to regular diet when medically feasible, pending WOOD PROCESSING WORKER approval 4) Collect HbA1C 5) Refer to outpatient RD/CDCES for weight management 6) Follow-up with cardiology and pulmonology 7) Continue to monitor I&O, labs, and skin integrity Expected Outcomes/Goals: 1) patient to receive nutrition support within 7 days of NPO status 2) labs to improve 3) diet to advance 4) f/u in 2-3 days Date of Service: September 07, 2024 Billing Provider: HEATHER SANTOS Cardiology Common Codes: [id number] CARE 30-74 MIN HEATHER SANTOS September 07, 2024 10:25
[2024-09-07] MEDS ORDERED: VANCOMYCIN 750MG KIT 100 ML IV SCH (11:00)
[2024-09-07] MEDS: VANCOMYCIN 750mg/150ml 150 ML IV SCH (13:33)
[2024-09-07] MEDS: Vital AF 1.2 Cal 1 liter bottle GT SCH (15:17)
--- NOTE | 2024-09-07 19:08 | DVHPNRES ---
Progress Note Date Seen: September 07, 2024 Resident Creating Document: KATHRYN ATKINS RESIDENT Medical Necessity Reason Pt with a Central, PICC or Fol: Yes The following are medically ne: Central Line, Ware Catheter Subjective Review of Systems This is a 74-year-old female with past medical history of COPD on home oxygen 2- 3 L, Alzheimer's dementia, anxiety, depression was brought in by EMS from [facility] facility due to acute hypoxia. Patient has baseline dementia and confused. Information was gathered from chart reviewing and talking to the nursing staff. According to the staff the patient developed respiratory distress and become hypoxic around 4:00 p.m. at the [facility] facility was desaturating to 70s and called the EMS . In the ED patient was also desaturating to 70s put on nasal cannula that did not relieved the hypoxia and started on BiPAP the patient was overnight BiPAP and in the morning ABG revealed severe respiratory acidosis, patient became more altered and was not able to maintain the airway and emergency intubation was done. Family was contracted before intubation but could not reach the family and emergency intubation was done to save the patient. Patient was seen and examined on the bedside. The patient is on mechanical ventilation with FiO2 30%, tidal volume 450 mL, peep 5 and respiratory rate 12. Patient is on Precedex drip, amiodarone drip and dobutamine drip right now and scheduled for CPAP trial tomorrow. Objective vital signs Vital Sign Date Time Temp Pulse Resp B/P (MAP) Pulse Ox O2 Delivery O2 Flow Rate FiO2 09/07/24 18:52 99 Mechanical Ventilator 09/07/24 18:48 30 30 09/07/24 18:30 99.0 81 14 120/63 (82) 210.2 Total Intake and Output 09/06/24 09/06/24 09/07/24 15:00 23:00 07:00 Intake Total 524 ml 453.70 ml 476.22 ml Output Total 2325 ml 2350 ml Balance 524 ml -1871.30 ml -1873.78 ml medications Current Medications Medications Dose Ordered Sig/Blanche Route Start Time Stop Time Status Last Admin Dose Admin Acetaminophen 650 mg Q6HP PRN PO 09/03/24 03:45 Sodium Chloride 10 ml Q8HR IV 09/03/24 06:00 09/07/24 14:27 10 ML Ondansetron HCl 4 mg Q4HP PRN IV 09/03/24 04:15 Pantoprazole Sodium 40 mg DAILY IV 09/04/24 10:00 09/07/24 09:27 40 MG Propofol 100 ml @ 1.908 mls/ hr Q24H IV 09/03/24 08:00 Midazolam HCl 50 ml @ 1 mls/hr Q24H IV 09/03/24 08:00 09/03/24 07:41 1 MLS/HR Fentanyl Citrate 250 ml @ 2.5 mls/hr Q24H IV 09/03/24 08:00 09/06/24 06:28 12.5 MLS/HR Furosemide 40 mg BIDD IV 09/03/24 18:00 09/07/24 17:04 40 MG Vancomycin HCl 0 ml @ 0 mls/hr UD IV 09/03/24 10:00 Levalbuterol HCl 1.25 mg Q6HR NEB 09/03/24 12:00 09/07/24 18:48 1.25 MG Ipratropium [place] 0.5 mg Q6HR NEB 09/03/24 12:00 09/07/24 18:47 0.5 MG Phenylephrine HCl 250 ml @ 30 mls/hr Q8H20M IV 09/04/24 01:00 UNV Dobutamine HCl/ Dextrose 250 ml @ 11.1 mls/hr [id number] IV 09/04/24 11:00 09/07/24 05:32 11.1 MLS/HR Digoxin 125 mcg DAILY IV 09/06/24 10:00 09/07/24 09:28 125 MCG Meropenem 50 ml @ 17 mls/hr Q8HR IV 09/06/24 22:00 09/07/24 14:27 17 MLS/HR Enteral Nutritional Formula 1,000 ml 50ML/HR GT 09/07/24 10:15 09/07/24 15:17 1,000 ML Metoprolol Tartrate 12.5 mg BID PO 09/07/24 22:00 Vancomycin HCl 100 ml @ 100 mls/hr Q24H IV 09/07/24 11:00 UNV Vancomycin HCl 150 ml @ 150 mls/hr Q24H IV 09/07/24 11:00 09/07/24 13:33 150 MLS/HR Methylprednisolone Sodium Succinate 20 mg BID IV 09/07/24 22:00 Examination Examination General: RASS -2, afebrile, mucosae are moist Cardiovascular: Normal S1 and S2. No murmurs, gallops or rubs Respiratory: Mechanically assisted ventilation, equal bilateral airway entree. Bilateral wheezing and coarse crackles. Abdomen: Soft, nontender, no organomegaly, normal bowel sounds MSK/skin: Mobilization of limbs cannot be evaluated. Skin is dry and warm. bilateral edema ++. Neurological: Orientation cannot be assessed. No apparent motor no sensitive deficits. Pupils are isocoric and reactive laboratory and microbiology Laboratory Tests 09/07/24 04:41 Test 09/07/24 04:41 Range/Units Serum Glucose 132 H 74-106 mg/dL Microbiology Date/Time Source Procedure Growth Status 09/06/24 15:05 Blood Blood Culture - Preliminary NO GROWTH AFTER 24 HOURS OF INCUBATION. Resulted 09/03/24 14:00 Sputum Gram Stain - Final Complete 09/03/24 14:00 Sputum Respiratory Culture - Final Complete 09/03/24 11:31 Urine - [place] Urine Culture - Final Proteus mirabilis - ESBL Enterococcus faecalis Complete 09/03/24 10:20 Nose MRSA Screen - Final Complete Labs and/or images reviewed: Labs reviewed by me, Image(s) reviewed by me Problem List/Assessment/Plan Problem List/Assessment/Plan Assessment and plan: NEURO: Acute hypercapnic encephalopathy carbon dioxide narcosis H/O of Alzheimer's dementia - on mechanical ventilation with FiO2 50%, peep 5, respiratory rate 12 and tidal volume 450 mL RASS score: -3 CARDIOVASCULAR: Possible acute on chronic decompensated systolic heart failure Dilated Cardiomyopathy likely due to alcohol abuse disorder and on dobutamine drip NSTEMI type 2 likely secondary to supply/demand mismatch Paroxysmal atrial fibrillation with secondary hypercoagulable state Episodes of atrial fibrillation with RVR and on amiodarone drip History of coronary artery disease - [id number] Score of 4 points, HAS-BLED Score 2 points - EKG showed atrial fibrillation, old anterior infarct - CXR showed cardiomegaly with mild pulmonary vascular congestion - BNP is normal - Echo showed severe global hypokinesis, EF 15%, severe MR and TR and end-stage dilated cardiomyopathy . - IV Lasix 40 mg b.i.d. - cardiology on board - IV dobutamine drip as per protocol - Continue IV amiodarone drip - No anticoagulant is given to the patient at this time because of thrombocytopenia PULMONARY: Acute hypercapnic/ hypoxic respiratory failure Acute exacerbation of chronic COPD Possible Gram-positive/Gram-negative community-acquired pneumonia Possible aspiration pneumonia Sepsis due to pneumonia Ruled out pulmonary embolism Mild left-sided pleural effusion - CXR showed Mild cardiomegaly with pulmonary vascular congestion. Small left pleural effusion and left basilar opacities which could reflect atelectasis or pneumonia - CT angio showed no evidence of acute pulmonary emboli. Cardiomegaly with evidence of CHF, bilateral pleural effusions and pulmonary edema. The differential diagnosis for pulmonary opacities include pneumonia. Mild mediastinal lymphadenopathy. - COVID, flu and MRSA are negative. - IV methylprednisolone 40 mg b.i.d. - IV Lasix 40 mg b.i.d. - med neb with levalbuterol and ipratropium q.6 hours - IV vancomycin as per pharmacy and IV meropenem 1 g q.8 hours - Blood culture and sputum culture are negative and urine culture demonstrated ESBL and Enterococcus faecalis GASTROINTESTINAL: Transaminitis likely due to sepsis GENITOURINARY: Acute complicated UTI due to ESBL and Enterococcus UTI is not associated to Ware catheter Alcohol Abuse disorder - Urine culture is positive for ESBL and Enterococcus - Continue IV vancomycin as per pharmacy and IV meropenem 1 g Q 8 hours - UDS is positive for opioids, benzodiazepines and cannabinoids - Plasma alcohol is more than 5.8 ENDOCRINE: Hyperglycemia likely due to steroid induced HEME: Leukopenia likely due to sepsis Chronic mild normocytic anemia likely due to anemia of chronic disease INFECTIOUS DISEASE: Sepsis due to pneumonia Leukopenia, hypothermia and lactic acidosis likely secondary to sepsis Possible aspiration pneumonia Community-acquired Gram-positive/Gram-negative pneumonia - Blood culture and sputum culture are negative and urine culture demonstrated ESBL and Enterococcus faecalis - IV vancomycin as per pharmacy and IV meropenem 1 g q.8 hours MUSCULOSKELETAL: Ruled out DVT Possible Lymphedema of bilateral lower limb DIET: NPO DVT prophylax: Lovenox GI prophylaxis: Protonix Bowel regimen: Code status: Full code LINES/DRAINS/ACCESS: Right IJ triple-lumen catheter placed on 09/03/2024 ETT: Intubated on 09/03/2024 IV access: Drips: Precedex, amio, dobutamine Ware catheter: Placed on 09/02/2024 DISPOSITION: KWAME Patient's status discussed with family Critical care time spent more than 81 minutes, including CPAP trial, patient care, chart review, and updating the family. Excluding any procedures. Case discussed with Dr. Unger Plan discussed with: Other (RN, Granddaughter) My Orders My Orders Orders - KATHRYN ATKINS Procedure Category Date Status Time Cpap Trial For Am ORDERS 09/06/24 Transmitted 20:13 Nutritional PHA 09/07/24 In Process Supplements (Vital Af 10:15 Vancomycin Per HALEY 09/09/24 In Process Pharmacy Protoc 11:00 Vancomycin,Trough LAB 09/09/24 Verified 10:00 Creatinine LAB 09/08/24 Verified 04:00 Vancomycin PHA 09/07/24 In Process 750mg/150ml 11:00 Dietary Evaluation Review Comments: 1) If patient remains NPO > 7 days, initiate EN/TPN to meet at least 75% of estimated daily needs 2) If GI route is preferred, consider Vital AF 1.2 @ 50 mL/hr goal rate as tolerated to meet increased protein needs. TF regimen will provide 1440 kcals, 90g Pro, and 973 mL per 24 hrs. Goal rate will provide ~ 86% estimated daily energy needs and ~76% estimated daily protein needs. 3) Advance patient to regular diet when medically feasible, pending BRANDING SPECIALIST approval 4) Collect HbA1C 5) Refer to outpatient RD/CDCES for weight management 6) Follow-up with cardiology and pulmonology 7) Continue to monitor I&O, labs, and skin integrity Expected Outcomes/Goals: 1) patient to receive nutrition support within 7 days of NPO status 2) labs to improve 3) diet to advance 4) f/u in 2-3 days Date of Service: September 07, 2024 Billing Provider: JAIR UNGER MD Common Visit Codes: [id number] CARE 30-74 MIN, [id number] CARE-EACH +30MIN KATHRYN ATKINS September 07, 2024 19:08 JAIR UNGER MD September 08, 2024 16:17
[2024-09-07] MEDS: methylPREDNISolone SOD SUCC 40 MG/ML VL IV SCH (22:10)
[2024-09-07] MEDS: METOPROLOL TARTRATE 25 MG TAB PO SCH (22:11)
[2024-09-08] VITALS (106 sets, daily range): BP systolic 101–160; BP diastolic 68–119; PULSE 76–151; RESP 12–45; TEMP 83.3–99.5; O2SAT 62–100
[2024-09-08 05:03] LABS: Basophils # (auto) 0 10 ^3/uL (0-0.2); Eosinophils # (auto) 0 10 ^3/uL (0-0.8); Hematocrit 29.3 % (36.0-46.0); Hemoglobin 9.5 g/dL (12.2-16.2); Lymphocytes # (auto) 0.2 10 ^3/uL (0.4-5.4); Lymphocytes % (auto) 2.4 % (10.0-50.0); Mean Corpuscular Hemoglobin 25.3 pg (28.0-32.0); Mean Corpuscular Hgb Conc. 32.3 g/dL (32.0-36.0); Mean Corpuscular Volume 78.4 fL (80.0-100.0); Monocytes % (auto) 9.3 % (0.0-12.0); Neutrophils # (auto) 9.2 10 ^3/uL (1.6-8.6); Neutrophils % (auto) 88.3 % (37.0-80.0); Nucleated Red Blood Cells % 0.4 %; Platelet Count (auto) 98 10^3/uL (140-450); Red Blood Cells 3.74 10^6/uL (4.0-5.20); Red Cell Distribution Width 18.4 % (11.8-14.3); White Blood Cell 10.4 10^3/uL (4.4-10.8)
--- NOTE | 2024-09-08 05:09 | DVH ---
EXAM: XR Chest, 1 View CLINICAL INDICATION: Mechanical ventilation TECHNIQUE: Frontal view of the chest. COMPARISON: XY CHEST PORTABLE on DOS: 09/07/24, XY CHEST PORTABLE on DOS: 09/06/24, XY CHEST PORTABLE on DOS: 09/05/24, XY CHEST PORTABLE on DOS: 09/04/24, XY CHEST XRAY 1 VIEW on DOS: 09/03/24 FINDINGS: LUNGS AND PLEURAL SPACES: See below. HEART: Cardiomegaly with mild congestion. MEDIASTINUM: Unremarkable. Normal mediastinal contour. BONES/JOINTS: Unremarkable. No acute fracture. TUBES, LINES AND DEVICES: Right internal jugular central venous catheter tip in the superior vena c dalia. The endotracheal tube (ETT) is in satisfactory position. Enteric tube tip in the stomach. OTHER FINDINGS: . IMPRESSION: Cardiomegaly with mild congestion.
[2024-09-08 05:20] LABS: Albumin 3.6 g/dL (3.2-4.8); Alkaline Phosphatase 70 U/L (46-116); Anion Gap 9 (5-15); BUN/Creatinine Ratio 30.8 (10.0-20.0); Calcium 9.3 mg/dL (8.7-10.4); Sodium 139 mmol/L (136-145); Total Protein 6.5 g/dL (5.7-8.2)
[2024-09-08 05:54] LABS: Alanine Aminotransferase 49 U/L (7-40); Aspartate Aminotransferase 92 U/L (13-40); Bilirubin, Total 1.9 mg/dL (0.2-1.0); Blood Urea Nitrogen 24 mg/dL (9-23); Carbon Dioxide 37 mmol/L (20-31); Chloride 93 mmol/L (98-107); Glucose 110 mg/dL (74-106); Potassium 2.9 mmol/L (3.5-5.1)
[2024-09-08 06:42] LABS: Base Excess 9.8 mmol/L (-2.0-3.0)
[2024-09-08] MEDS: POTASSIUM CHL 20MEQ/100ML 100 ML IV SCH (07:27)
[2024-09-08 07:50] LABS: Base Excess 13.1 mmol/L (-2.0-3.0)
[2024-09-08] MEDS ORDERED: POTASSIUM CHL 20MEQ/100ML 100 ML IV SCH (08:45)
--- NOTE | 2024-09-08 10:39 | DVHPN2 ---
Consult Progress Note Date Seen: September 08, 2024 Subjective Other Systems: Endotracheally extubated this morning. On O2 support. A-fib with RVR 120s bpm Objective vital signs Vital Sign Date Time Temp Pulse Resp B/P (MAP) Pulse Ox O2 Delivery O2 Flow Rate FiO2 09/08/24 09:33 116 09/08/24 08:30 99.1 22 149/94 (112) 98 210.4 09/08/24 08:00 Mechanical Ventilator+ 30 30 Total Intake and Output 09/07/24 09/07/24 09/08/24 15:00 23:00 07:00 Intake Total 780 ml 287.80 ml 668.08 ml Output Total 3300 ml 2400 ml Balance 780 ml -3012.20 ml -1731.92 ml medications Current Medications Medications Dose Ordered Sig/Blanche Route Start Time Stop Time Status Last Admin Dose Admin Acetaminophen 650 mg Q6HP PRN PO 09/03/24 03:45 Sodium Chloride 10 ml Q8HR IV 09/03/24 06:00 09/08/24 06:02 10 ML Ondansetron HCl 4 mg Q4HP PRN IV 09/03/24 04:15 Pantoprazole Sodium 40 mg DAILY IV 09/04/24 10:00 09/08/24 09:30 40 MG Propofol 100 ml @ 1.908 mls/ hr Q24H IV 09/03/24 08:00 Midazolam HCl 50 ml @ 1 mls/hr Q24H IV 09/03/24 08:00 09/03/24 07:41 1 MLS/HR Fentanyl Citrate 250 ml @ 2.5 mls/hr Q24H IV 09/03/24 08:00 09/06/24 06:28 12.5 MLS/HR Furosemide 40 mg BIDD IV 09/03/24 18:00 09/08/24 07:29 40 MG Vancomycin HCl 0 ml @ 0 mls/hr UD IV 09/03/24 10:00 Levalbuterol HCl 1.25 mg Q6HR NEB 09/03/24 12:00 09/08/24 06:37 1.25 MG Ipratropium [place] 0.5 mg Q6HR NEB 09/03/24 12:00 09/08/24 06:37 0.5 MG Phenylephrine HCl 250 ml @ 30 mls/hr Q8H20M IV 09/04/24 01:00 UNV Dobutamine HCl/ Dextrose 250 ml @ 11.1 mls/hr [id number] IV 09/04/24 11:00 09/08/24 05:03 11.1 MLS/HR Digoxin 125 mcg DAILY IV 09/06/24 10:00 09/08/24 09:33 125 MCG Meropenem 50 ml @ 17 mls/hr Q8HR IV 09/06/24 22:00 09/08/24 06:02 17 MLS/HR Enteral Nutritional Formula 1,000 ml 50ML/HR GT 09/07/24 10:15 09/07/24 15:17 1,000 ML Metoprolol Tartrate 12.5 mg BID PO 09/07/24 22:00 09/07/24 22:11 12.5 MG Vancomycin HCl 100 ml @ 100 mls/hr Q24H IV 09/07/24 11:00 UNV Vancomycin HCl 150 ml @ 150 mls/hr Q24H IV 09/07/24 11:00 09/07/24 13:33 150 MLS/HR Methylprednisolone Sodium Succinate 20 mg BID IV 09/07/24 22:00 09/08/24 09:31 20 MG Potassium Chloride 100 ml @ 50 mls/hr Q2H IV 09/08/24 07:15 09/08/24 13:14 09/08/24 09:30 50 MLS/HR Potassium Chloride 100 ml @ 50 mls/hr Q2H IV 09/08/24 08:45 09/08/24 16:44 UNV Examination: GENERAL:Abnormal (Lethargic, extubated this a.m.), LUNGS:Abnormal (O2 at 10 LPM. 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 Bill) Continue amiodarone drip per pharmacy protocol, digoxin therapy IV & low-dose beta-samantha IV PRN for rate control (NPO status). Discontinue dobutamine. Currently off full AC therapy given thrombocytopenia which places the patient at a high risk for an acute CVA ([id number] Score of 4 points, HAS-BLED Score 2 points). Replete electrolytes as necessary, K>4 and Mg>2. Initiate GDMT for CHF when able to swallow and as tolerated. Continue ABX therapy per primary care team. Monitor H&H closely. DVT/VTE prophylaxis: SCDs. Very poor prognosis, consider hospice care for end-stage cardiomyopathy. There is no further cardiac work-up indicated at this time. Kindly call with any questions or concerns. Thank you for allowing us to participate in this patient's care. Critical care time: 30 min. This medical document was created using an electronic medical record system with voice recognition software and computerized dictation system. Although this document has been carefully reviewed, there might still be some phonetic and typographical errors. Occasional wrong-word or ``sound-alike substitutions may have occurred due to the inherent limitations of voice recognition software. These areas are purely typographical due to imperfections of the software programs and do not reflect any compromise in the patient's medical care. Please read the chart carefully and recognize, using context, where these substitutions have occurred. Plan discussed with: Patient, Other Dietary Evaluation Review Comments: 1) If patient remains NPO > 7 days, initiate EN/TPN to meet at least 75% of estimated daily needs 2) If GI route is preferred, consider Vital AF 1.2 @ 50 mL/hr goal rate as tolerated to meet increased protein needs. TF regimen will provide 1440 kcals, 90g Pro, and 973 mL per 24 hrs. Goal rate will provide ~ 86% estimated daily energy needs and ~76% estimated daily protein needs. 3) Advance patient to regular diet when medically feasible, pending LICENSED PHYSICAL THERAPY ASSISTANT approval 4) Collect HbA1C 5) Refer to outpatient RD/CDCES for weight management 6) Follow-up with cardiology and pulmonology 7) Continue to monitor I&O, labs, and skin integrity Expected Outcomes/Goals: 1) patient to receive nutrition support within 7 days of NPO status 2) labs to improve 3) diet to advance 4) f/u in 2-3 days Date of Service: September 08, 2024 Billing Provider: HEATHER SANTOS Cardiology Common Codes: [id number] HOSP CARE(High HEATHER SANTOS September 08, 2024 10:39
[2024-09-08 13:00] LABS: Base Excess 11.9 mmol/L (-2.0-3.0)
[2024-09-08] MEDS: POTASSIUM CHL 20MEQ/100ML 100 ML IV ONE (14:07)
[2024-09-08 18:42] LABS: Base Excess 10.5 mmol/L (-2.0-3.0)
--- NOTE | 2024-09-08 19:06 | DVHPNRES ---
Progress Note Date Seen: September 08, 2024 Resident Creating Document: KATHRYN ATKINS RESIDENT Medical Necessity Reason Pt with a Central, PICC or Fol: Yes The following are medically ne: Central Line, Ware Catheter Subjective Review of Systems This is a 74-year-old female with past medical history of COPD on home oxygen 2- 3 L, Alzheimer's dementia, anxiety, depression was brought in by EMS from [facility] due to acute hypoxia. Patient has baseline dementia and confused. Information was gathered from chart reviewing and talking to the nursing staff. According to the staff the patient developed respiratory distress and become hypoxic around 4:00 p.m. at the [facility] facility was desaturating to 70s and called the EMS . In the ED patient was also desaturating to 70s put on nasal cannula that did not relieved the hypoxia and started on BiPAP the patient was overnight BiPAP and in the morning ABG revealed severe respiratory acidosis, patient became more altered and was not able to maintain the airway and emergency intubation was done. Family was contracted before intubation but could not reach the family and emergency intubation was done to save the patient. Patient was seen and examined on the bedside. Status post extubation and patient is on BiPAP 12/5 with Fio2 100% . Objective vital signs Vital Sign Date Time Temp Pulse Resp B/P (MAP) Pulse Ox O2 Delivery O2 Flow Rate FiO2 09/08/24 18:34 97 Bi-pap/CPAP 09/08/24 18:34 113 130/93 100 09/08/24 18:30 99.0 20 210.2 09/08/24 10:00 10 Total Intake and Output 09/07/24 09/07/24 09/08/24 15:00 23:00 07:00 Intake Total 780 ml 287.80 ml 668.08 ml Output Total 3300 ml 2400 ml Balance 780 ml -3012.20 ml -1731.92 ml medications Current Medications Medications Dose Ordered Sig/Blanche Route Start Time Stop Time Status Last Admin Dose Admin Acetaminophen 650 mg Q6HP PRN PO 09/03/24 03:45 Sodium Chloride 10 ml Q8HR IV 09/03/24 06:00 09/08/24 14:00 10 ML Ondansetron HCl 4 mg Q4HP PRN IV 09/03/24 04:15 Pantoprazole Sodium 40 mg DAILY IV 09/04/24 10:00 09/08/24 09:30 40 MG Propofol 100 ml @ 1.908 mls/ hr Q24H IV 09/03/24 08:00 Midazolam HCl 50 ml @ 1 mls/hr Q24H IV 09/03/24 08:00 09/03/24 07:41 1 MLS/HR Fentanyl Citrate 250 ml @ 2.5 mls/hr Q24H IV 09/03/24 08:00 09/06/24 06:28 12.5 MLS/HR Furosemide 40 mg BIDD IV 09/03/24 18:00 09/08/24 17:47 40 MG Vancomycin HCl 0 ml @ 0 mls/hr UD IV 09/03/24 10:00 Levalbuterol HCl 1.25 mg Q6HR NEB 09/03/24 12:00 09/08/24 18:34 1.25 MG Ipratropium Howe 0.5 mg Q6HR NEB 09/03/24 12:00 09/08/24 18:34 0.5 MG Phenylephrine HCl 250 ml @ 30 mls/hr Q8H20M IV 09/04/24 01:00 UNV Digoxin 125 mcg DAILY IV 09/06/24 10:00 09/08/24 09:33 125 MCG Meropenem 50 ml @ 17 mls/hr Q8HR IV 09/06/24 22:00 09/08/24 14:18 17 MLS/HR Enteral Nutritional Formula 1,000 ml 50ML/HR GT 09/07/24 10:15 09/07/24 15:17 1,000 ML Vancomycin HCl 100 ml @ 100 mls/hr Q24H IV 09/07/24 11:00 UNV Vancomycin HCl 150 ml @ 150 mls/hr Q24H IV 09/07/24 11:00 09/08/24 12:02 150 MLS/HR Methylprednisolone Sodium Succinate 20 mg BID IV 09/07/24 22:00 09/08/24 09:31 20 MG Metoprolol Tartrate 1.25 mg Q6HPRN PRN IV 09/08/24 10:45 Examination Physical examination: General Appearance: Alert, arousable, , anxious and on bipap HEENT: Atraumatic, PERRLA, EOMI, Mucous membrane moist/pink Respiratory: Fine bilateral crackles. Cardiovascular: Irregular rate, Normal S1, Normal S2, No murmurs, no chest wall tenderness Abdominal: Normal bowel sounds, Soft, No tenderness, No hepatospenomegaly, No masses Extremities: Edema +, No clubbing, No cyanosis, Normal pulses, No tenderness/swelling Skin: No rashes, No breakdown, No significant lesion Neuro:Strength at 5/5 X4 ext, Normal tone, Sensation intact, Cranial nerves 3-12 NL, Reflexes 2+ Psych/Mental Status: Could not be assessed. laboratory and microbiology Laboratory Tests 09/08/24 17:42 09/08/24 04:41 Test 09/08/24 04:41 Range/Units Serum Glucose 110 H 74-106 mg/dL Microbiology Date/Time Source Procedure Growth Status 09/06/24 15:05 Blood Blood Culture - Preliminary NO GROWTH AFTER 48 HOURS OF INCUBATION. Resulted 09/03/24 14:00 Sputum Gram Stain - Final Complete 09/03/24 14:00 Sputum Respiratory Culture - Final Complete 09/03/24 11:31 Urine - [place] Urine Culture - Final Proteus mirabilis - ESBL Enterococcus faecalis Complete 09/03/24 10:20 Nose MRSA Screen - Final Complete Labs and/or images reviewed: Labs reviewed by me, Image(s) reviewed by me Problem List/Assessment/Plan Problem List/Assessment/Plan Assessment and plan: NEURO: Acute hypercapnic encephalopathy carbon dioxide narcosis H/O of Alzheimer's dementia - S/P extubation and on Bipap CARDIOVASCULAR: Possible acute on chronic decompensated systolic heart failure Dilated Cardiomyopathy likely due to alcohol abuse disorder and on dobutamine drip NSTEMI type 2 likely secondary to supply/demand mismatch Paroxysmal atrial fibrillation with secondary hypercoagulable state Episodes of atrial fibrillation with RVR and on amiodarone drip History of coronary artery disease - [id number] Score of 4 points, HAS-BLED Score 2 points - EKG showed atrial fibrillation, old anterior infarct - CXR showed cardiomegaly with mild pulmonary vascular congestion - BNP is normal - Echo showed severe global hypokinesis, EF 15%, severe MR and TR and end-stage dilated cardiomyopathy . - IV Lasix 40 mg b.i.d. - cardiology on board - D/C dobutamine drip due to tachycardia. - Continue IV amiodarone drip - No anticoagulant is given to the patient at this time because of thrombocytopenia PULMONARY: Acute hypercapnic/ hypoxic respiratory failure Acute exacerbation of chronic COPD Possible Gram-positive/Gram-negative community-acquired pneumonia Possible aspiration pneumonia Sepsis due to pneumonia Ruled out pulmonary embolism Mild left-sided pleural effusion - CXR showed Mild cardiomegaly with pulmonary vascular congestion. Small left pleural effusion and left basilar opacities which could reflect atelectasis or pneumonia - CT angio showed no evidence of acute pulmonary emboli. Cardiomegaly with evidence of CHF, bilateral pleural effusions and pulmonary edema. The differential diagnosis for pulmonary opacities include pneumonia. Mild mediastinal lymphadenopathy. - COVID, flu and MRSA are negative. - IV methylprednisolone 40 mg b.i.d. - IV Lasix 40 mg b.i.d. - med neb with levalbuterol and ipratropium q.6 hours - IV vancomycin as per pharmacy and IV meropenem 1 g q.8 hours - Blood culture and sputum culture are negative and urine culture demonstrated ESBL and Enterococcus faecalis GASTROINTESTINAL: Transaminitis likely due to sepsis GENITOURINARY: Acute complicated UTI due to ESBL and Enterococcus UTI is not associated to Ware catheter Alcohol Abuse disorder - Urine culture is positive for ESBL and Enterococcus - Continue IV vancomycin as per pharmacy and IV meropenem 1 g Q 8 hours - UDS is positive for opioids, benzodiazepines and cannabinoids - Plasma alcohol is more than 5.8 ENDOCRINE: Hyperglycemia likely due to steroid induced HEME: Leukopenia likely due to sepsis Chronic mild normocytic anemia likely due to anemia of chronic disease INFECTIOUS DISEASE: Sepsis due to pneumonia Leukopenia, hypothermia and lactic acidosis likely secondary to sepsis Possible aspiration pneumonia Community-acquired Gram-positive/Gram-negative pneumonia - Blood culture and sputum culture are negative and urine culture demonstrated ESBL and Enterococcus faecalis - IV vancomycin as per pharmacy and IV meropenem 1 g q.8 hours MUSCULOSKELETAL: Ruled out DVT Possible Lymphedema of bilateral lower limb DIET: NPO DVT prophylax: Lovenox GI prophylaxis: Protonix Bowel regimen: Code status: Full code LINES/DRAINS/ACCESS: Right IJ triple-lumen catheter placed on 09/03/2024 ETT: Reintubated on 09/08/2024 IV access: Drips: Precedex, amio Ware catheter: Placed on 09/02/2024 DISPOSITION: KWAME Patient's status discussed with family Critical care time spent more than 81 minutes, including CPAP trial, patient care, chart review, and updating the family. Excluding any procedures. Case discussed with Dr. Geraldine Plan discussed with: Other (Grand -daughter, RN) My Orders My Orders Orders - KATHRYN ATKINS Procedure Category Date Status Time Chest Portable XY 09/08/24 Resulted 04:00 Abg W/ Co-Ox RT 09/08/24 Logged 04:00 Nasal Tracheal Suction RT 09/08/24 Logged 10:55 Creatinine LAB 09/09/24 Verified 05:00 Abg W/ Co-Ox RT 09/08/24 Logged 18:14 Dietary Evaluation Review Comments: 1) If patient remains NPO > 7 days, initiate EN/TPN to meet at least 75% of estimated daily needs 2) If GI route is preferred, consider Vital AF 1.2 @ 50 mL/hr goal rate as tolerated to meet increased protein needs. TF regimen will provide 1440 kcals, 90g Pro, and 973 mL per 24 hrs. Goal rate will provide ~ 86% estimated daily energy needs and ~76% estimated daily protein needs. 3) Advance patient to regular diet when medically feasible, pending PERSONAL BANKING REPRESENTATIVE approval 4) Collect HbA1C 5) Refer to outpatient RD/[facility] for weight management 6) Follow-up with cardiology and pulmonology 7) Continue to monitor I&O, labs, and skin integrity Expected Outcomes/Goals: 1) patient to receive nutrition support within 7 days of NPO status 2) labs to improve 3) diet to advance 4) f/u in 2-3 days Date of Service: September 08, 2024 Billing Provider: JAIR UNGER MD Common Visit Codes: 17533-[id number] CARE 30-74 MIN, 76292-[id number] CARE-EACH +30MIN KATHRYN ATKINS September 08, 2024 19:06 JAIR UNGER MD September 09, 2024 13:21
[2024-09-08] MEDS: LORazepam 2MG/ML-1ML VIAL IV ONE (20:09)
[2024-09-08] MEDS: METOPROLOL TARTRATE 1MG/1ML-5ML VIAL IV PRN (22:04)
[2024-09-09] VITALS (109 sets, daily range): BP systolic 58–147; BP diastolic 26–104; PULSE 61–134; RESP 12–38; TEMP 95.7–99.5; O2SAT 81–100
--- NOTE | 2024-09-09 05:56 | DVH ---
EXAM: XR Chest, 1 View CLINICAL INDICATION: post extubated TECHNIQUE: Frontal view of the chest. COMPARISON: XY CHEST PORTABLE on DOS: 09/08/24, XY CHEST PORTABLE on DOS: 09/07/24, XY CHEST PORTABLE on DOS: 09/06/24, XY CHEST PORTABLE on DOS: 09/05/24, XY CHEST PORTABLE on DOS: 09/04/24 FINDINGS: LUNGS AND PLEURAL SPACES: Left basilar atelectasis or pneumonia. Left pleural effusion. No pneumo thorax. HEART: Unremarkable. No cardiomegaly. MEDIASTINUM: Unremarkable. Normal mediastinal contour. BONES/JOINTS: Unremarkable. No acute fracture. TUBES, LINES AND DEVICES: Right internal jugular central venous catheter tip in the superior vena c dalia. OTHER FINDINGS: . . IMPRESSION: 1. Left basilar atelectasis or pneumonia. 2. Left pleural effusion.
[2024-09-09 06:46] LABS: Basophils # (auto) 0 10 ^3/uL (0-0.2); Eosinophils # (auto) 0 10 ^3/uL (0-0.8); Hematocrit 28.6 % (36.0-46.0); Hemoglobin 9.3 g/dL (12.2-16.2); Neutrophils # (auto) 14.5 10 ^3/uL (1.6-8.6)
[2024-09-09 06:48] LABS: Lymphocytes # (auto) 0.3 10 ^3/uL (0.4-5.4); Lymphocytes % (auto) 1.7 % (10.0-50.0); Mean Corpuscular Hgb Conc. 32.7 g/dL (32.0-36.0); Mean Corpuscular Volume 79.5 fL (80.0-100.0); Monocytes % (auto) 6.4 % (0.0-12.0); Neutrophils % (auto) 91.9 % (37.0-80.0); Nucleated Red Blood Cells % 0.3 %; Platelet Count (auto) 101 10^3/uL (140-450); Red Blood Cells 3.59 10^6/uL (4.0-5.20); Red Cell Distribution Width 18.2 % (11.8-14.3); White Blood Cell 15.7 10^3/uL (4.4-10.8)
[2024-09-09] MEDS: ROCURONIUM 10MG/ML 10ML VIAL IV ONE ×2 (06:48→06:53)
[2024-09-09] MEDS: ETOMIDATE (2MG/ML) 20ML VIAL IV ONE ×2 (06:49→06:53)
[2024-09-09] MEDS: methylPREDNISolone SOD SUCC 40 MG/ML VL IV ONE (06:52)
[2024-09-09] MEDS: methylPREDNISolone SOD SUCC 40 MG/ML VL ONE (06:52)
[2024-09-09] MEDS: fentaNYL Drip 2500mCg/250mlNS 250 ML IV ONE (06:57)
[2024-09-09] MEDS: MIDAZOLAM DRIP 50 mg/50mL 50 ML IV ONE (06:57)
[2024-09-09] MEDS: NOREPINEPHRINE 8 MG/250ML KIT 250 ML IV ONE (06:57)
[2024-09-09] MEDS: NOREPINEPHRINE 8 MG/250ML KIT 250 ML IV SCH (07:05)
--- NOTE | 2024-09-09 07:07 | DVHNC2 ---
Intubation Indication: Respiratory Insufficiency, Airway Protection Prep: Preoxygenation Pretreated with: Analgesia, Sedation Medicated with: Other (Etomidate, rocuronium) Intubation Approach: Orotracheal Intubation size: cm (7.5) Informed consent obtained: Yes Risks/benefits/alt described: Yes Notes PROCEDURE SUMMARY: A time out was performed. My hands were washed immediately prior to the procedure. I wore a surgical cap, mask with protective eyewear, gown and gloves throughout the procedure. The patient was placed on a helmet binder including continuous pulse oximetry. Rapid Sequence Intubation was conducted. The patient received 20 mg of etomidate for induction and 50 mg of rocuronium for adequate paralysis. Cricoid pressure was maintained from time induction agent was given to time of cuff balloon inflation. Using a glidoscope and a size 7.5 cm endotracheal tube with stylet, the patient was intubated on the 1st attempt. The stylet was removed and cuff balloon was inflated. Appropriate endotracheal tube position was confirmed by direct visualization of vocal cord passage, fogging of the tube, CO2 colormetric indicator and symmetric breath sounds. The tube was secured at cm at the lips. Post intubation chest x-ray is pending at this time. Supervised by Dr. Flores Date of Service: September 09, 2024 Billing Provider: THAI [place] MD Common Visit Codes: PROCEDURE ONLY Procedure Codes: [id number] KATHRYN ATKINS RESIDENT September 09, 2024 07:07
[2024-09-09 07:13] LABS: Base Excess 13.6 mmol/L (-2.0-3.0)
[2024-09-09] MEDS: fentaNYL Drip 2500mCg/250mlNS 250 ML IV SCH (07:15)
[2024-09-09] MEDS: MIDAZOLAM DRIP 50 mg/50mL 50 ML IV SCH (07:15)
[2024-09-09 07:21] LABS: Alkaline Phosphatase 78 U/L (46-116); Anion Gap 8 (5-15); BUN/Creatinine Ratio 32.9 (10.0-20.0); Calcium 10.2 mg/dL (8.7-10.4); Glucose 97 mg/dL (74-106); Sodium 142 mmol/L (136-145); Total Protein 6.7 g/dL (5.7-8.2)
[2024-09-09 07:23] LABS: Albumin 3.8 g/dL (3.2-4.8)
[2024-09-09 07:27] LABS: Alanine Aminotransferase 47 U/L (7-40); Aspartate Aminotransferase 71 U/L (13-40); Bilirubin, Total 2.2 mg/dL (0.2-1.0); Blood Urea Nitrogen 24 mg/dL (9-23); Chloride 94 mmol/L (98-107); Potassium 3.5 mmol/L (3.5-5.1)
[2024-09-09 07:28] LABS: Carbon Dioxide 40 mmol/L (20-31)
--- NOTE | 2024-09-09 07:29 | DVH ---
CHEST RADIOGRAPH Indication: Intubation Technique: Single frontal view of the chest was obtained Comparison: XY CHEST PORTABLE on DOS: 09/09/24 FINDINGS: Lines and Tubes: There is a right central venous catheter with the tip terminating in the superior ve na cava. The enteric tube courses below the left hemidiaphragm and the tip extends outside the field of view. The endotracheal tube terminates 3.1 cm above the pancho. Lungs: Left upper and lower lobe consolidation, overall improved since prior study. Pleura: No effusion. No pneumothorax. Cardiomediastinal contours: Unremarkable Bones: No acute osseous abnormality. IMPRESSION: 1. Appropriate position of the support lines and tubes. 2. Overall improved aeration in the left upper and lower lobes since prior study.
[2024-09-09 08:55] LABS: Base Excess 12.5 mmol/L (-2.0-3.0)
[2024-09-09] MEDS: POTASSIUM CHL 20MEQ/100ML 100 ML IV SCH (10:42)
--- NOTE | 2024-09-09 13:08 | DVHNC2 ---
Procedure - Bronchoscopy and bronchial washings Indication mucus plugs Procedure in detail consent was obtained time-out the phone per protocol patient was placed pull in 100% FiO2 mechanical ventilation. Flexible scope was yeast and positive through endotracheal tube tracheobronchial tree was examined That has signs of inflammation with edematous mucosa which also appears easily friable. No endobronchial lesions. Semi purulent secretions visualized in the lower lobes bilaterally. That has suctioned in a specimen container and sent for Gram stain and cultures. At the end of the procedure the scope was removed RICK VARGAS MD September 09, 2024 13:08
[2024-09-09 14:14] LABS: Base Excess 13.5 mmol/L (-2.0-3.0)
--- NOTE | 2024-09-09 14:45 | DVH ---
EXAM: XY CHEST PORTABLE Indication: Pain; s/p bronchoscopy Technique: Single frontal view of the chest was obtained Comparison: XY CHEST PORTABLE on DOS: 09/09/24, XY CHEST PORTABLE on DOS: 09/09/24, XY CHEST PORTABLE o n DOS: 09/08/24, XY CHEST PORTABLE on DOS: 09/07/24, XY CHEST PORTABLE on DOS: 09/06/24 FINDINGS: Lines and Tubes: Endotracheal tube projects 2.5 cm above the pancho. Right internal jugular central venous catheter tip projects over the superior vena cava. Lungs: Multifocal interstitial opacities Pleura: Small left pleural effusion No pneumothorax. Cardiomediastinal contours: Cardiomegaly. Bones: No acute osseous abnormality. IMPRESSION: Cardiomegaly with small left pleural effusion and multifocal interstitial opacities.
[2024-09-09 18:08] LABS: Base Excess 14.7 mmol/L (-2.0-3.0)
--- NOTE | 2024-09-09 19:33 | DVHPNRES ---
Progress Note Date Seen: September 09, 2024 Resident Creating Document: KATHRYN ATKINS RESIDENT Medical Necessity Reason Pt with a Central, PICC or Fol: Yes The following are medically ne: Central Line, Ware Catheter Subjective Review of Systems This is a 74-year-old female with past medical history of COPD on home oxygen 2- 3 L, Alzheimer's dementia, anxiety, depression was brought in by EMS from [facility] facility due to acute hypoxia. Patient has baseline dementia and confused. Information was gathered from chart reviewing and talking to the nursing staff. According to the staff the patient developed respiratory distress and become hypoxic around 4:00 p.m. at the [facility] facility was desaturating to 70s and called the EMS . In the ED patient was also desaturating to 70s put on nasal cannula that did not relieved the hypoxia and started on BiPAP the patient was overnight BiPAP and in the morning ABG revealed severe respiratory acidosis, patient became more altered and was not able to maintain the airway and emergency intubation was done. Family was contracted before intubation but could not reach the family and emergency intubation was done to save the patient. Patient was seen and examined on the bedside. Today morning CxR revealed total collapse of the left lung, and the patient was having deep shallow breathing and needed emergent intubation. Currently patient is on mechanical ventilation with FiO2 30%, PEEP 5, respiratory rate 12 and tidal volume 450 mL. Objective vital signs Vital Sign Date Time Temp Pulse Resp B/P (MAP) Pulse Ox O2 Delivery O2 Flow Rate FiO2 09/09/24 19:00 71 12 123/67 (85) 98 30 09/09/24 16:45 97.3 207.1 09/09/24 16:00 Mechanical Ventilator+ 09/08/24 10:00 10 Total Intake and Output 09/08/24 09/08/24 09/09/24 15:00 23:00 07:00 Intake Total 512.38 ml 188.28 ml 203.94 ml Output Total 1700 ml 2450 ml Balance 512.38 ml -1511.72 ml -2246.06 ml medications Current Medications Medications Dose Ordered Sig/Blanche Route Start Time Stop Time Status Last Admin Dose Admin Acetaminophen 650 mg Q6HP PRN PO 09/03/24 03:45 Sodium Chloride 10 ml Q8HR IV 09/03/24 06:00 09/09/24 15:20 10 ML Pantoprazole Sodium 40 mg DAILY IV 09/04/24 10:00 09/09/24 10:42 40 MG Propofol 100 ml @ 1.908 mls/ hr Q24H IV 09/03/24 08:00 Furosemide 40 mg BIDD IV 09/03/24 18:00 09/09/24 05:37 40 MG Vancomycin HCl 0 ml @ 0 mls/hr UD IV 09/03/24 10:00 Levalbuterol HCl 1.25 mg Q6HR NEB 09/03/24 12:00 09/09/24 19:00 1.25 MG Ipratropium [place] 0.5 mg Q6HR NEB 09/03/24 12:00 09/09/24 19:00 0.5 MG Phenylephrine HCl 250 ml @ 30 mls/hr Q8H20M IV 09/04/24 01:00 UNV Meropenem 50 ml @ 17 mls/hr Q8HR IV 09/06/24 22:00 09/09/24 15:19 17 MLS/HR Enteral Nutritional Formula 1,000 ml 50ML/HR GT 09/07/24 10:15 09/07/24 15:17 1,000 ML Vancomycin HCl 100 ml @ 100 mls/hr Q24H IV 09/07/24 11:00 UNV Methylprednisolone Sodium Succinate 20 mg BID IV 09/07/24 22:00 09/09/24 10:42 20 MG Metoprolol Tartrate 1.25 mg Q6HPRN PRN IV 09/08/24 10:45 Hold 09/08/24 22:04 1.25 MG Norepinephrine Bitartrate 250 ml @ 3.75 mls/hr Q24H IV 09/09/24 07:15 09/09/24 07:05 3.75 MLS/HR Midazolam HCl 50 ml @ 1 mls/hr Q24H IV 09/09/24 07:15 09/09/24 15:20 4 MLS/HR Fentanyl Citrate 250 ml @ 2.5 mls/hr Q24H IV 09/09/24 07:15 09/09/24 14:47 10 MLS/HR Vancomycin HCl 150 ml @ 150 mls/hr DAILY@1800 IV 09/10/24 18:00 Examination Examination General: RASS -2, afebrile, mucosae are moist Cardiovascular: Normal S1 and S2. No murmurs, gallops or rubs Respiratory: Mechanically assisted ventilation, equal bilateral airway entree. Bilateral wheezing and coarse crackles. Abdomen: Soft, nontender, no organomegaly, normal bowel sounds MSK/skin: Mobilization of limbs cannot be evaluated. Skin is dry and warm. bilateral edema +. Neurological: Orientation cannot be assessed. No apparent motor no sensitive deficits. Pupils are isocoric and reactive laboratory and microbiology Laboratory Tests 09/09/24 04:45 Test 09/09/24 04:45 Range/Units Serum Glucose 97 74-106 mg/dL Microbiology Date/Time Source Procedure Growth Status 09/06/24 15:05 Blood Blood Culture - Preliminary NO GROWTH AFTER 72 HOURS OF INCUBATION. Resulted 09/03/24 14:00 Sputum Gram Stain - Final Complete 09/03/24 14:00 Sputum Respiratory Culture - Final Complete 09/03/24 11:31 Urine - Ware Port Urine Culture - Final Proteus mirabilis - ESBL Enterococcus faecalis Complete 09/03/24 10:20 Nose MRSA Screen - Final Complete Labs and/or images reviewed: Labs reviewed by me, Image(s) reviewed by me Problem List/Assessment/Plan Problem List/Assessment/Plan Assessment and plan: NEURO: Acute hypercapnic encephalopathy carbon dioxide narcosis H/O of Alzheimer's dementia - On mechanical ventilation CARDIOVASCULAR: Possible acute on chronic decompensated systolic heart failure Dilated Cardiomyopathy likely due to alcohol abuse disorder and on dobutamine drip NSTEMI type 2 likely secondary to supply/demand mismatch Paroxysmal atrial fibrillation with secondary hypercoagulable state Episodes of atrial fibrillation with RVR and on amiodarone drip History of coronary artery disease - [id number] Score of 4 points, HAS-BLED Score 2 points - EKG showed atrial fibrillation, old anterior infarct - CXR showed cardiomegaly with mild pulmonary vascular congestion - BNP is normal - Echo showed severe global hypokinesis, EF 15%, severe MR and TR and end-stage dilated cardiomyopathy . - IV Lasix 40 mg b.i.d. - cardiology on board - D/C dobutamine drip due to tachycardia. - Continue IV amiodarone drip - No anticoagulant is given to the patient at this time because of thrombocytopenia PULMONARY: Acute hypercapnic/ hypoxic respiratory failure Acute exacerbation of chronic COPD Possible Gram-positive/Gram-negative community-acquired pneumonia Possible aspiration pneumonia Sepsis due to pneumonia Ruled out pulmonary embolism Mild left-sided pleural effusion - CXR showed Mild cardiomegaly with pulmonary vascular congestion. Small left pleural effusion and left basilar opacities which could reflect atelectasis or pneumonia - CT angio showed no evidence of acute pulmonary emboli. Cardiomegaly with evidence of CHF, bilateral pleural effusions and pulmonary edema. The differential diagnosis for pulmonary opacities include pneumonia. Mild mediastinal lymphadenopathy. - COVID, flu and MRSA are negative. - IV methylprednisolone 40 mg b.i.d. - IV Lasix 40 mg b.i.d. - med neb with levalbuterol and ipratropium q.6 hours - IV vancomycin as per pharmacy and IV meropenem 1 g q.8 hours - Blood culture and sputum culture are negative and urine culture demonstrated ESBL and Enterococcus faecalis GASTROINTESTINAL: Transaminitis likely due to sepsis GENITOURINARY: Acute complicated UTI due to ESBL and Enterococcus UTI is not associated to Ware catheter Alcohol Abuse disorder - Urine culture is positive for ESBL and Enterococcus - Continue IV vancomycin as per pharmacy and IV meropenem 1 g Q 8 hours - UDS is positive for opioids, benzodiazepines and cannabinoids - Plasma alcohol is more than 5.8 ENDOCRINE: Hyperglycemia likely due to steroid induced HEME: Leukopenia likely due to sepsis Chronic mild normocytic anemia likely due to anemia of chronic disease INFECTIOUS DISEASE: Sepsis due to pneumonia Leukopenia, hypothermia and lactic acidosis likely secondary to sepsis Possible aspiration pneumonia Community-acquired Gram-positive/Gram-negative pneumonia - Blood culture and sputum culture are negative and urine culture demonstrated ESBL and Enterococcus faecalis - IV vancomycin as per pharmacy and IV meropenem 1 g q.8 hours MUSCULOSKELETAL: Ruled out DVT Possible Lymphedema of bilateral lower limb DIET: NPO DVT prophylax: Lovenox GI prophylaxis: Protonix Bowel regimen: Code status: Full code LINES/DRAINS/ACCESS: Right IJ triple-lumen catheter placed on 09/03/2024 ETT: Reintubated on 09/08/2024 IV access: Drburke: radha Pinto Ware catheter: Placed on 09/02/2024 DISPOSITION: KWAME Patient's status discussed with family Critical care time spent more than 41 minutes Case discussed with Dr. Unger Plan discussed with: Other (granddaughter, RN) My Orders My Orders Orders - KATHRYN TAKINS RESIDENT Procedure Category Date Status Time Abg W/ Co-Ox RT 09/09/24 Logged 06:18 Ventilator Setup RT 09/09/24 Logged 06:59 Abg W/ Co-Ox RT 09/09/24 Logged 08:00 Respiratory Culture PAIGE 09/09/24 In Process W/ Gs 06:59 *Consult CONS 09/09/24 Transmitted / 07:07 Place Og Tube ORDERS 09/09/24 Transmitted 07:00 Abg W/ Co-Ox RT 09/09/24 Logged 08:54 Blood Culture PAIGE 09/09/24 In Process 08:57 Abg W/ Co-Ox RT 09/09/24 Logged 11:10 Communication Order ORDERS 09/09/24 Transmitted 11:33 Ventilator Orders RT 09/09/24 Transmitted 12:07 Ventilator Orders RT 09/09/24 Transmitted 12:08 Abg W/ Co-Ox RT 09/09/24 Logged 13:15 Chest Portable XY 09/09/24 Resulted 13:59 Ventilator Orders RT 09/09/24 Transmitted 14:30 Vancomycin PHA 09/10/24 In Process 750mg/150ml 18:00 Vancomycin,Trough LAB 09/12/24 Verified 17:00 Vancomycin Per HALEY 09/12/24 In Process Pharmacy Protoc 18:00 Creatinine LAB 09/10/24 Verified 05:00 Abg W/ Co-Ox RT 09/09/24 Logged 17:44 Dietary Evaluation Review Comments: 1) If patient remains NPO > 7 days, initiate EN/TPN to meet at least 75% of estimated daily needs 2) If GI route is preferred, consider Vital AF 1.2 @ 50 mL/hr goal rate as tolerated to meet increased protein needs. TF regimen will provide 1440 kcals, 90g Pro, and 973 mL per 24 hrs. Goal rate will provide ~ 86% estimated daily energy needs and ~76% estimated daily protein needs. 3) Advance patient to regular diet when medically feasible, pending [employer] approval 4) Collect HbA1C 5) Refer to outpatient RD/CDCES for weight management 6) Follow-up with cardiology and pulmonology 7) Continue to monitor I&O, labs, and skin integrity Expected Outcomes/Goals: 1) patient to receive nutrition support within 7 days of NPO status 2) labs to improve 3) diet to advance 4) f/u in 2-3 days Date of Service: September 09, 2024 Billing Provider: JAIR UNGER MD Common Visit Codes: 58383-[id number] CARE 30-74 MIN KATHRYN ATKINS RESIDENT September 09, 2024 19:33 JAIR UNGER MD Sep 12, 2024 11:36
[2024-09-10] VITALS (112 sets, daily range): BP systolic 75–128; BP diastolic 41–85; PULSE 57–116; RESP 10–25; TEMP 96.1–99; O2SAT 97–100
[2024-09-10 05:53] LABS: Basophils # (auto) 0 10 ^3/uL (0-0.2); Eosinophils # (auto) 0 10 ^3/uL (0-0.8); Lymphocytes # (auto) 0.2 10 ^3/uL (0.4-5.4); Neutrophils # (auto) 7.8 10 ^3/uL (1.6-8.6); Nucleated Red Blood Cells % 0.2 %; Red Blood Cells 3.17 10^6/uL (4.0-5.20)
--- NOTE | 2024-09-10 05:53 | DVH ---
EXAM: XR Chest, 1 View CLINICAL INDICATION: Mechanical ventilation TECHNIQUE: Frontal view of the chest. COMPARISON: XY CHEST PORTABLE on DOS: 09/09/24, XY CHEST PORTABLE on DOS: 09/09/24, XY CHEST PORTABLE on DOS: 09/09/24, XY CHEST PORTABLE on DOS: 09/08/24, XY CHEST PORTABLE on DOS: 09/07/24 FINDINGS: LUNGS AND PLEURAL SPACES: Hyperlucent lungs. Flattening of the diaphragm. Left basilar. No consol idation. No pneumothorax. HEART: Cardiomegaly without overt failure. MEDIASTINUM: Unremarkable. Normal mediastinal contour. BONES/JOINTS: Unremarkable. No acute fracture. TUBES, LINES AND DEVICES: The endotracheal tube (ETT) is in satisfactory position. Enteric tube ti p in the stomach. OTHER FINDINGS: . Right IJ. IMPRESSION: 1. Suggestion of COPD. 2. Cardiomegaly without overt failure.
[2024-09-10 05:58] LABS: Hematocrit 24.9 % (36.0-46.0); Hemoglobin 8.2 g/dL (12.2-16.2); Lymphocytes % (auto) 2.5 % (10.0-50.0); Mean Corpuscular Hgb Conc. 33.1 g/dL (32.0-36.0); Mean Corpuscular Volume 78.6 fL (80.0-100.0); Monocytes # (auto) 0.6 10 ^3/uL (0-1.3); Monocytes % (auto) 6.4 % (0.0-12.0); Neutrophils % (auto) 91.1 % (37.0-80.0); Platelet Count (auto) 90 10^3/uL (140-450); Red Cell Distribution Width 18.2 % (11.8-14.3); White Blood Cell 8.6 10^3/uL (4.4-10.8)
[2024-09-10 06:05] LABS: Sodium 142 mmol/L (136-145)
[2024-09-10 06:06] LABS: Anion Gap 6 (5-15); Calcium 9.7 mg/dL (8.7-10.4); Carbon Dioxide 39 mmol/L (20-31); Chloride 97 mmol/L (98-107); Potassium 3.3 mmol/L (3.5-5.1)
[2024-09-10 06:11] LABS: BUN/Creatinine Ratio 32.9 (10.0-20.0); Glucose 104 mg/dL (74-106)
[2024-09-10 06:36] LABS: Blood Urea Nitrogen 25 mg/dL (9-23)
[2024-09-10 06:47] LABS: Base Excess 9.4 mmol/L (-2.0-3.0)
[2024-09-10] MEDS: POTASSIUM CHL 20MEQ/100ML 100 ML IV SCH (07:57)
[2024-09-10] MEDS: MAGNESIUM SULFATE 1GM/100ML 100 ML IV ONE ×2 (12:02→18:41)
[2024-09-10] MEDS: AMIODARONE HCL 200 MG TAB PO SCH (12:02)
--- NOTE | 2024-09-10 15:49 | DVHPNRES ---
Progress Note Date Seen: September 10, 2024 Resident Creating Document: KATHRYN ATKINS RESIDENT Medical Necessity Reason Pt with a Central, PICC or Fol: Yes The following are medically ne: Central Line, Ware Catheter Subjective Review of Systems This is a 74-year-old female with past medical history of COPD on home oxygen 2- 3 L, Alzheimer's dementia, anxiety, depression was brought in by EMS from [facility] facility due to acute hypoxia. Patient has baseline dementia and confused. Information was gathered from chart reviewing and talking to the nursing staff. According to the staff the patient developed respiratory distress and become hypoxic around 4:00 p.m. at the [facility] facility was desaturating to 70s and called the EMS . In the ED patient was also desaturating to 70s put on nasal cannula that did not relieved the hypoxia and started on BiPAP the patient was overnight BiPAP and in the morning ABG revealed severe respiratory acidosis, patient became more altered and was not able to maintain the airway and emergency intubation was done. Family was contracted before intubation but could not reach the family and emergency intubation was done to save the patient. Patient was seen and examined on the bedside. Currently patient is on mechanical ventilation with FiO2 30%, PEEP 5, respiratory rate 12 and tidal volume 450 mL. Family changed code status to modified DNR including no chest compression and defibrillation. Objective vital signs Vital Sign Date Time Temp Pulse Resp B/P (MAP) Pulse Ox O2 Delivery O2 Flow Rate FiO2 09/10/24 15:15 97.9 71 12 102/75 (84) 99 208.2 09/10/24 14:08 30 09/10/24 14:00 Mechanical Ventilator+ 09/08/24 10:00 10 Total Intake and Output 09/09/24 09/09/24 09/10/24 15:00 23:00 07:00 Intake Total 490.78 ml 423.28 ml 400.28 ml Output Total 750 ml 600 ml Balance 490.78 ml -326.72 ml -199.72 ml medications Current Medications Medications Dose Ordered Sig/Blanche Route Start Time Stop Time Status Last Admin Dose Admin Acetaminophen 650 mg Q6HP PRN PO 09/03/24 03:45 Sodium Chloride 10 ml Q8HR IV 09/03/24 06:00 09/10/24 05:08 10 ML Pantoprazole Sodium 40 mg DAILY IV 09/04/24 10:00 09/10/24 10:18 40 MG Furosemide 40 mg BIDD IV 09/03/24 18:00 09/10/24 06:59 40 MG Vancomycin HCl 0 ml @ 0 mls/hr UD IV 09/03/24 10:00 Levalbuterol HCl 1.25 mg Q6HR NEB 09/03/24 12:00 09/10/24 11:51 1.25 MG Ipratropium [place] 0.5 mg Q6HR NEB 09/03/24 12:00 09/10/24 11:52 0.5 MG Phenylephrine HCl 250 ml @ 30 mls/hr Q8H20M IV 09/04/24 01:00 UNV Meropenem 50 ml @ 17 mls/hr Q8HR IV 09/06/24 22:00 09/10/24 05:07 17 MLS/HR Enteral Nutritional Formula 1,000 ml 50ML/HR GT 09/07/24 10:15 09/07/24 15:17 1,000 ML Vancomycin HCl 100 ml @ 100 mls/hr Q24H IV 09/07/24 11:00 UNV Methylprednisolone Sodium Succinate 20 mg BID IV 09/07/24 22:00 09/10/24 10:20 20 MG Metoprolol Tartrate 1.25 mg Q6HPRN PRN IV 09/08/24 10:45 Hold 09/08/24 22:04 1.25 MG Norepinephrine Bitartrate 250 ml @ 3.75 mls/hr Q24H IV 09/09/24 07:15 09/10/24 05:15 7.5 MLS/HR Midazolam HCl 50 ml @ 1 mls/hr Q24H IV 09/09/24 07:15 09/10/24 10:20 3 MLS/HR Fentanyl Citrate 250 ml @ 2.5 mls/hr Q24H IV 09/09/24 07:15 09/09/24 22:26 12.5 MLS/HR Vancomycin HCl 150 ml @ 150 mls/hr DAILY@1800 IV 09/10/24 18:00 Amiodarone HCl 200 mg Q12HR PO 09/10/24 10:00 09/10/24 12:02 200 MG Examination Examination General: RASS -2, afebrile, mucosae are moist Cardiovascular: Normal S1 and S2. No murmurs, gallops or rubs Respiratory: Mechanically assisted ventilation, equal bilateral airway entree. Bilateral wheezing and coarse crackles. Abdomen: Soft, nontender, no organomegaly, normal bowel sounds MSK/skin: Mobilization of limbs cannot be evaluated. Skin is dry and warm. bilateral edema +. Neurological: Orientation cannot be assessed. No apparent motor no sensitive deficits. Pupils are isocoric and reactive laboratory and microbiology Laboratory Tests 09/10/24 04:58 Test 09/10/24 04:58 Range/Units Serum Glucose 104 74-106 mg/dL Microbiology Date/Time Source Procedure Growth Status 09/09/24 13:06 Bronchial Washings Gram Stain Pending Resulted 09/09/24 13:06 Bronchial Washings Respiratory Culture - Preliminary Resulted 09/09/24 09:55 Blood Blood Culture - Preliminary NO GROWTH AFTER 24 HOURS OF INCUBATION. Resulted 09/03/24 11:31 Urine - Ware Port Urine Culture - Final Proteus mirabilis - ESBL Enterococcus faecalis Complete 09/03/24 10:20 Nose MRSA Screen - Final Complete Labs and/or images reviewed: Labs reviewed by me, Image(s) reviewed by me Problem List/Assessment/Plan Problem List/Assessment/Plan Assessment and plan: NEURO: Acute hypercapnic encephalopathy carbon dioxide narcosis H/O of Alzheimer's dementia - On mechanical ventilation CARDIOVASCULAR: Possible acute on chronic decompensated systolic heart failure Dilated Cardiomyopathy likely due to alcohol abuse disorder and on dobutamine drip NSTEMI type 2 likely secondary to supply/demand mismatch Paroxysmal atrial fibrillation with secondary hypercoagulable state Episodes of atrial fibrillation with RVR and on amiodarone drip History of coronary artery disease - [id number] Score of 4 points, HAS-BLED Score 2 points - EKG showed atrial fibrillation, old anterior infarct - CXR showed cardiomegaly with mild pulmonary vascular congestion - BNP is normal - Echo showed severe global hypokinesis, EF 15%, severe MR and TR and end-stage dilated cardiomyopathy . - IV Lasix 40 mg b.i.d. - cardiology on board - D/C dobutamine drip due to tachycardia. - Amiodarone 200 mg po bid - No anticoagulant is given to the patient at this time because of thrombocytopenia PULMONARY: Acute hypercapnic/ hypoxic respiratory failure Acute exacerbation of chronic COPD Possible Gram-positive/Gram-negative community-acquired pneumonia Possible aspiration pneumonia Sepsis due to pneumonia Ruled out pulmonary embolism Mild left-sided pleural effusion - CXR showed Mild cardiomegaly with pulmonary vascular congestion. Small left pleural effusion and left basilar opacities which could reflect atelectasis or pneumonia - CT angio showed no evidence of acute pulmonary emboli. Cardiomegaly with evidence of CHF, bilateral pleural effusions and pulmonary edema. The differential diagnosis for pulmonary opacities include pneumonia. Mild mediastinal lymphadenopathy. - COVID, flu and MRSA are negative. - IV methylprednisolone 40 mg b.i.d. - IV Lasix 40 mg b.i.d. - med neb with levalbuterol and ipratropium q.6 hours - IV vancomycin as per pharmacy and IV meropenem 1 g q.8 hours - Blood culture and sputum culture are negative and urine culture demonstrated ESBL and Enterococcus faecalis GASTROINTESTINAL: Transaminitis likely due to sepsis GENITOURINARY: Acute complicated UTI due to ESBL and Enterococcus UTI is not associated to Ware catheter Alcohol Abuse disorder - Urine culture is positive for ESBL and Enterococcus - Continue IV vancomycin as per pharmacy and IV meropenem 1 g Q 8 hours - UDS is positive for opioids, benzodiazepines and cannabinoids - Plasma alcohol is more than 5.8 ENDOCRINE: Hyperglycemia likely due to steroid induced HEME: Leukopenia likely due to sepsis Chronic mild normocytic anemia likely due to anemia of chronic disease INFECTIOUS DISEASE: Sepsis due to pneumonia Leukopenia, hypothermia and lactic acidosis likely secondary to sepsis Possible aspiration pneumonia Community-acquired Gram-positive/Gram-negative pneumonia - Blood culture and sputum culture are negative and urine culture demonstrated ESBL and Enterococcus faecalis - IV vancomycin as per pharmacy and IV meropenem 1 g q.8 hours MUSCULOSKELETAL: Ruled out DVT Possible Lymphedema of bilateral lower limb DIET: NPO DVT prophylax: Lovenox GI prophylaxis: Protonix Bowel regimen: Code status: Full code LINES/DRAINS/ACCESS: Right IJ triple-lumen catheter placed on 09/03/2024 ETT: Reintubated on 09/08/2024 IV access: Drips: Fenatyl, verseed, norepinephrine Ware catheter: Placed on 09/02/2024 Code status : Modified DNR DISPOSITION: KWAME Patient's status discussed with Granddaughter Critical care time spent more than 41 minutes Case discussed with Dr. Davila Plan discussed with: Other (Granddaughter, RN) My Orders My Orders Orders - KATHRYN ATKINS RESIDENT Procedure Category Date Status Time Abg W/ Co-Ox RT 5/29/25 Logged 17:44 Chest Portable XY 09/10/24 Resulted 04:00 Abg W/ Co-Ox RT 09/10/24 Logged 04:00 Amiodarone Tablet PHA 09/10/24 In Process (Cordarone Tablet) 10:00 Magnesium LAB 09/10/24 Logged 17:00 Potassium LAB 09/10/24 Logged 17:00 Dietary Evaluation Review Comments: 1) If patient remains NPO > 7 days, initiate EN/TPN to meet at least 75% of estimated daily needs 2) If GI route is preferred, consider Vital AF 1.2 @ 50 mL/hr goal rate as tolerated to meet increased protein needs. TF regimen will provide 1440 kcals, 90g Pro, and 973 mL per 24 hrs. Goal rate will provide ~ 86% estimated daily energy needs and ~76% estimated daily protein needs. 3) Advance patient to regular diet when medically feasible, pending [employer]IL [employer]ST[employer] approval 4) Collect HbA1C 5) Refer to outpatient RD/CDCES for weight management 6) Follow-up with cardiology and pulmonology 7) Continue to monitor I&O, labs, and skin integrity Expected Outcomes/Goals: 1) patient to receive nutrition support within 7 days of NPO status 2) labs to improve 3) diet to advance 4) f/u in 2-3 days KATHRYN ATKINS RESIDENT September 10, 2024 15:49
[2024-09-10 17:23] LABS: Potassium 3.8 mmol/L (3.5-5.1)
[2024-09-10 17:30] LABS: Magnesium 1.8 mg/dL (1.6-2.6)
--- NOTE | 2024-09-10 17:55 | DVHTSRES ---
Transfer Summary Transfer Summary Resident Creating Document: KATHRYN ATKINS RESIDENT Date of Admission September 03, 2024 at 04:02 Date of Transfer: September 10, 2024 Transfer Diagnosis Acute hypercapnic encephalopathy on mechanical ventilation, acute exacerbation of chronic systolic heart failure, COPD, atrial fibrillation, Alzheimer dementia Brief Hx & Hospital Course: This is a 74-year-old female with past medical history of COPD, CHF, Alzheimer dementia, atrial fibrillation [facility] and initially presented to the ED with severe respiratory distress. The patient was initially on BiPAP by but follow up gas was revealed respiratory acidosis and patient was not able to maintain the airway, needed emergent intubation. The patient was treated for aspiration pneumonia, acute exacerbation of chronic systolic heart failure, atrial fibrillation. The patient has a history of smoking, chronic alcohol abuse and street drugs. Echo revealed EF 15% with end-stage dilated cardiomyopathy likely due to alcoholism. We extubated the patient on 0 09/08/24 and was on BiPAP. The patient needed to reintubate again within 24 hours of post extubation due to severe respiratory distress and on chest x-ray total collapse of the left lung. Post intubation bronchoscopy did not reveal any mucus plug or thick secretion. Urine culture came back positive for ESBL. The patient is on IV vancomycin as per pharmacy, IV meropenem 1 g Q 8 hours, IV Lasix 40 mg b.i.d., oral amiodarone 100 mg b.i.d.. Anticoagulant was not able to start because the patient has thrombocytopenia. With the granddaughter today is the next of kin did aura change the coded status to modified DNR including no chest compression and defibrillation. Also mentioned the family will be deciding to comfort care on Friday. Transfer Status KWAME KTAHRYN ATKINS RESIDENT September 10, 2024 17:55
[2024-09-10] MEDS: VANCOMYCIN 750mg/150ml 150 ML IV SCH (18:05)
[2024-09-11] VITALS (114 sets, daily range): BP systolic 77–142; BP diastolic 45–91; PULSE 64–117; RESP 10–28; TEMP 93.2–99.7; O2SAT 97–100
[2024-09-11 05:04] LABS: Basophils # (auto) 0 10 ^3/uL (0-0.2); Basophils % (auto) 0.1 % (0.0-2.0); Eosinophils # (auto) 0 10 ^3/uL (0-0.8); Hemoglobin 8.5 g/dL (12.2-16.2); Lymphocytes # (auto) 0.2 10 ^3/uL (0.4-5.4); Mean Corpuscular Hgb Conc. 32.7 g/dL (32.0-36.0)
[2024-09-11 05:06] LABS: Lymphocytes % (auto) 2.5 % (10.0-50.0); Mean Corpuscular Hemoglobin 26.1 pg (28.0-32.0); Mean Corpuscular Volume 79.7 fL (80.0-100.0); Monocytes # (auto) 0.6 10 ^3/uL (0-1.3); Neutrophils # (auto) 7.4 10 ^3/uL (1.6-8.6); Neutrophils % (auto) 90.4 % (37.0-80.0); Nucleated Red Blood Cells % 0.1 %; Platelet Count (auto) 117 10^3/uL (140-450); Red Blood Cells 3.26 10^6/uL (4.0-5.20); White Blood Cell 8.2 10^3/uL (4.4-10.8)
[2024-09-11 05:18] LABS: Sodium 143 mmol/L (136-145)
[2024-09-11 05:19] LABS: Anion Gap 6 (5-15); Calcium 9.7 mg/dL (8.7-10.4)
[2024-09-11 05:24] LABS: BUN/Creatinine Ratio 33.3 (10.0-20.0)
[2024-09-11 05:28] LABS: Blood Urea Nitrogen 26 mg/dL (9-23); Carbon Dioxide 39 mmol/L (20-31); Chloride 98 mmol/L (98-107); Glucose 113 mg/dL (74-106); Potassium 3.3 mmol/L (3.5-5.1)
[2024-09-11] MEDS: POTASSIUM CHL 20MEQ/100ML 100 ML IV SCH (05:58)
[2024-09-11] MEDS: POTASSIUM CHL 20MEQ/100ML 300 ML IV ONE (05:59)
--- NOTE | 2024-09-11 06:06 | DVH ---
CHEST RADIOGRAPH Indication: Mechanical ventilation Technique: Single frontal view of the chest was obtained Comparison: XY CHEST PORTABLE on DOS: 09/10/24, XY CHEST PORTABLE on DOS: 09/09/24, XY CHEST PORTABLE o n DOS: 09/09/24 IMPRESSION: Heart appears prominent in size. Support lines and tubes appear unchanged in satisfactory in position . No focal airspace opacity, effusion, or pneumothorax.
--- NOTE | 2024-09-11 09:49 | DVHPN2 ---
Progress Note - Dictate Date Seen: September 11, 2024 Medical Necessity Reason Pt with a Central, PICC or Fol: Yes The following are medically ne: Central Line, Ware Catheter vital signs Vital Sign Date Time Temp Pulse Resp B/P (MAP) Pulse Ox O2 Delivery O2 Flow Rate FiO2 09/11/24 09:33 12 99 Mechanical Ventilator+ 30 30 09/11/24 09:33 77 09/11/24 09:14 106/73 (84) 09/11/24 06:45 99.0 210.2 Total Intake and Output 09/10/24 09/10/24 09/11/24 15:00 23:00 07:00 Intake Total 553.98 ml 539.0 ml 352.75 ml Output Total 550 ml 900 ml Balance 553.98 ml -11.0 ml -547.25 ml medications Current Medications Medications Dose Ordered Sig/Blanche Route Start Time Stop Time Status Last Admin Dose Admin Acetaminophen 650 mg Q6HP PRN PO 09/03/24 03:45 Sodium Chloride 10 ml Q8HR IV 09/03/24 06:00 09/11/24 05:47 10 ML Pantoprazole Sodium 40 mg DAILY IV 09/04/24 10:00 09/11/24 08:12 40 MG Furosemide 40 mg BIDD IV 09/03/24 18:00 09/11/24 05:46 40 MG Vancomycin HCl 0 ml @ 0 mls/hr UD IV 09/03/24 10:00 Levalbuterol HCl 1.25 mg Q6HR NEB 09/03/24 12:00 09/11/24 06:09 1.25 MG Ipratropium [place] 0.5 mg Q6HR NEB 09/03/24 12:00 09/11/24 06:09 0.5 MG Phenylephrine HCl 250 ml @ 30 mls/hr Q8H20M IV 09/04/24 01:00 UNV Meropenem 50 ml @ 17 mls/hr Q8HR IV 09/06/24 22:00 09/11/24 05:23 17 MLS/HR Enteral Nutritional Formula 1,000 ml 50ML/HR GT 09/07/24 10:15 09/07/24 15:17 1,000 ML Vancomycin HCl 100 ml @ 100 mls/hr Q24H IV 09/07/24 11:00 UNV Methylprednisolone Sodium Succinate 20 mg BID IV 09/07/24 22:00 09/11/24 08:12 20 MG Metoprolol Tartrate 1.25 mg Q6HPRN PRN IV 09/08/24 10:45 Hold 09/08/24 22:04 1.25 MG Norepinephrine Bitartrate 250 ml @ 3.75 mls/hr Q24H IV 09/09/24 07:15 09/10/24 05:15 7.5 MLS/HR Midazolam HCl 50 ml @ 1 mls/hr Q24H IV 09/09/24 07:15 09/10/24 23:10 4 MLS/HR Fentanyl Citrate 250 ml @ 2.5 mls/hr Q24H IV 09/09/24 07:15 09/10/24 17:16 12.5 MLS/HR Vancomycin HCl 150 ml @ 150 mls/hr DAILY@1800 IV 09/10/24 18:00 09/10/24 18:05 150 MLS/HR Amiodarone HCl 200 mg Q12HR PO 09/10/24 10:00 09/11/24 08:12 200 MG Potassium Chloride 100 ml @ 50 mls/hr Q2H IV 09/11/24 05:45 09/11/24 11:44 09/11/24 08:09 50 MLS/HR laboratory and microbiology Laboratory Tests 09/11/24 04:28 Test 09/11/24 04:28 Range/Units Serum Glucose 113 H 74-106 mg/dL Assessment/Plan Impression Acute hypoxemic respiratory failure Acute COPD exacerbation Hx of Alzheimer's disease Pleural effusions Pneumonia NSTEMI Patient seen and examined in ICU Events On mechanical ventilation S/p re-intubation PEEP 5, FiO2 30% Labs and imaging reviewed ABG reviewed Management Vent support Titrate to maintain sats 90% or above family contemplating compassionate weaning Continue antibiotics F/u cultures Bronchodilators Monitor renal function Monitor electrolytes Supplement as needed Pressors as needed for hemodynamic support To maintain a mean arterial pressure of 65 mmHg Echo report reviewed F/u cardiology DVT prophylaxis Critical care time 35 minutes Dietary Evaluation Review Comments: 1) If patient remains NPO > 7 days, initiate EN/TPN to meet at least 75% of estimated daily needs 2) If GI route is preferred, consider Vital AF 1.2 @ 50 mL/hr goal rate as tolerated to meet increased protein needs. TF regimen will provide 1440 kcals, 90g Pro, and 973 mL per 24 hrs. Goal rate will provide ~ 86% estimated daily energy needs and ~76% estimated daily protein needs. 3) Advance patient to regular diet when medically feasible, pending HEALTH AND SAFETY INSPECTOR approval 4) Collect HbA1C 5) Refer to outpatient RD/CDCES for weight management 6) Follow-up with cardiology and pulmonology 7) Continue to monitor I&O, labs, and skin integrity Expected Outcomes/Goals: 1) patient to receive nutrition support within 7 days of NPO status 2) labs to improve 3) diet to advance 4) f/u in 2-3 days Plan discussed with: Other (rn) RICK VARGAS MD September 11, 2024 09:49
--- NOTE | 2024-09-11 13:43 | DVHPN2 ---
Subjective Patient intubated and sedated. Reviewed: Care Plan, H&P, Labs Changes from previous H/P or p: No Changes General: Per HPI Objective Vitals Vital Signs Date Time Temp Pulse Resp B/P (MAP) Pulse Ox O2 Delivery O2 Flow Rate FiO2 09/11/24 12:13 77 09/11/24 12:13 12 99 Mechanical Ventilator+ 30 30 09/11/24 11:28 114/76 (89) 09/11/24 06:45 99.0 210.2 Intake/Output Intake and Output 09/11/24 07:00 Intake Total 1445.73 ml Output Total 1450 ml Balance -4.27 ml Intake Oral 60 ml IV Total 1385.73 ml Output Urine Total 1450 ml General Appearance: Other (intubated and sedated) Lungs: Clear to auscultation Cardiovascular: Regular rate, Normal S1, Normal S2 Abdomen: Soft, No tenderness Rectal: Deferred Genitourinary: No Apparent Abnormalities (Catheter) Skin: Dry, Other (LE swelling) Psych/Mental Status: Other (Unable to assess) Medications Current Medications Medications Dose Ordered Sig/Blanche Route Start Time Stop Time Status Last Admin Dose Admin Acetaminophen 650 mg Q6HP PRN PO 09/03/24 03:45 Sodium Chloride 10 ml Q8HR IV 09/03/24 06:00 09/11/24 05:47 10 ML Pantoprazole Sodium 40 mg DAILY IV 09/04/24 10:00 09/11/24 08:12 40 MG Furosemide 40 mg BIDD IV 09/03/24 18:00 09/11/24 05:46 40 MG Vancomycin HCl 0 ml @ 0 mls/hr UD IV 09/03/24 10:00 Levalbuterol HCl 1.25 mg Q6HR NEB 09/03/24 12:00 09/11/24 11:32 1.25 MG Ipratropium [place] 0.5 mg Q6HR NEB 09/03/24 12:00 09/11/24 11:32 0.5 MG Phenylephrine HCl 250 ml @ 30 mls/hr Q8H20M IV 09/04/24 01:00 UNV Meropenem 50 ml @ 17 mls/hr Q8HR IV 09/06/24 22:00 09/11/24 05:23 17 MLS/HR Enteral Nutritional Formula 1,000 ml 50ML/HR GT 09/07/24 10:15 09/07/24 15:17 1,000 ML Vancomycin HCl 100 ml @ 100 mls/hr Q24H IV 09/07/24 11:00 UNV Methylprednisolone Sodium Succinate 20 mg BID IV 09/07/24 22:00 09/11/24 08:12 20 MG Metoprolol Tartrate 1.25 mg Q6HPRN PRN IV 09/08/24 10:45 Hold 09/08/24 22:04 1.25 MG Norepinephrine Bitartrate 250 ml @ 3.75 mls/hr Q24H IV 09/09/24 07:15 09/10/24 05:15 7.5 MLS/HR Midazolam HCl 50 ml @ 1 mls/hr Q24H IV 09/09/24 07:15 09/11/24 10:44 4 MLS/HR Fentanyl Citrate 250 ml @ 2.5 mls/hr Q24H IV 09/09/24 07:15 09/11/24 10:45 12.5 MLS/HR Vancomycin HCl 150 ml @ 150 mls/hr DAILY@1800 IV 09/10/24 18:00 09/10/24 18:05 150 MLS/HR Amiodarone HCl 200 mg Q12HR PO 09/10/24 10:00 09/11/24 08:12 200 MG Laboratory Results Laboratory Tests 09/11/24 04:28 Chemistry Test 09/10/24 17:04 09/11/24 04:28 Magnesium Level 1.8 mg/dL (1.6-2.6) 2.1 mg/dL (1.6-2.6) Calcium Level 9.7 mg/dL (8.7-10.4) Urinalysis Test 09/03/24 11:31 Urine Color Yellow (Yellow) Urine Clarity Turbid (Clear) H Urine pH 8.5 (5.0-9.0) Urine Specific [place] 1.013 (1.001-1.035) Urine Protein Trace (Negative) H Urine Ketones Negative (Negative) Urine Blood Negative /uL (Negative) Urine Nitrite Negative (Negative) Urine Bilirubin Negative (Negative) Urine Urobilinogen Normal mg/dL (Negative) Urine Leukocyte Esterase Negative /uL (Negative) Urine RBC 4 /hpf (0 - 4) Urine Microscopic WBC 1 /HPF (0-5) Urine Squamous Epithelial Cells Few /hpf (<5) Urine Bacteria None seen /hpf (None Seen) Urine Hyaline Casts Mod /lpf (0 - 2) Urine Mucus Few (None Seen) Urine Glucose Normal mg/dL (Normal) Microbiology Microbiology Date/Time Source Procedure Growth Status 09/09/24 13:06 Bronchial Washings Gram Stain Pending Resulted 09/09/24 13:06 Bronchial Washings Respiratory Culture - Preliminary Resulted 09/09/24 09:55 Blood Blood Culture - Preliminary NO GROWTH AFTER 48 HOURS OF INCUBATION. Resulted 09/03/24 11:31 Urine - [place] Urine Culture - Final Proteus mirabilis - ESBL Enterococcus faecalis Complete 09/03/24 10:20 Nose MRSA Screen - Final Complete Labs and/or images reviewed: Labs reviewed by me, Image(s) reviewed by me Assessment/Plan Assessment/Plan Impression: -acute hypoxic respiratory failure with mechanical ventilation -failure of weaning from mechanical ventilation -community-acquired pneumonia -complicated cystitis with ESBL -sepsis with shock -dementia -anemia of chronic disease Plan: -long discussion made with the family. Plans for compassionate extubation tomorrow. -continue current antibiotic therapy -bronchodilators -continue ventilator settings per pulmonology -PUD, DVT prophylaxis -code status: Chemical code Critical care time spent with patient discussing and formulating plan of care: 40 minutes. This does not include time spent performing procedures. This medical document was created using an electronic medical record system with flux - neutr[employer] dictation system. Although this document has been carefully reviewed, there may still be some phonetic and typographical errors. These areas are purely typographical due to imperfections of the software programs, and do not reflect any compromise in the patient's medical care. Plan discussed with: Patient, Other (RN) Date of Service: September 11, 2024 Billing Provider: SANA DOYLE NP Common Visit Codes: [id number] CARE 30-74 MIN SANA DOYLE NP September 11, 2024 13:43
[2024-09-12] VITALS (71 sets, daily range): BP systolic 76–148; BP diastolic 46–98; PULSE 64–123; RESP 7–23; TEMP 96.3–98.6; O2SAT 24–100
[2024-09-12 05:42] LABS: Basophils # (auto) 0 10 ^3/uL (0-0.2); Basophils % (auto) 0.2 % (0.0-2.0); Eosinophils # (auto) 0 10 ^3/uL (0-0.8); Hemoglobin 8.6 g/dL (12.2-16.2); Lymphocytes # (auto) 0.3 10 ^3/uL (0.4-5.4); Lymphocytes % (auto) 3.5 % (10.0-50.0); Monocytes # (auto) 0.4 10 ^3/uL (0-1.3); White Blood Cell 7.3 10^3/uL (4.4-10.8)
[2024-09-12 05:44] LABS: Eosinophils % (auto) 0.1 % (0.0-7.0); Hematocrit 26.4 % (36.0-46.0); Mean Corpuscular Hemoglobin 26.4 pg (28.0-32.0); Mean Corpuscular Hgb Conc. 32.7 g/dL (32.0-36.0); Mean Corpuscular Volume 80.8 fL (80.0-100.0); Monocytes % (auto) 5.7 % (0.0-12.0); Neutrophils # (auto) 6.6 10 ^3/uL (1.6-8.6); Neutrophils % (auto) 90.5 % (37.0-80.0); Nucleated Red Blood Cells % 0.2 %; Platelet Count (auto) 166 10^3/uL (140-450); Red Blood Cells 3.26 10^6/uL (4.0-5.20); Red Cell Distribution Width 18.1 % (11.8-14.3)
--- NOTE | 2024-09-12 13:21 | DVHPN2 ---
Subjective Patient intubated and sedated. Reviewed: Care Plan, H&P, Labs Changes from previous H/P or p: No Changes General: Per HPI Objective Vitals Vital Signs Date Time Temp Pulse Resp B/P (MAP) Pulse Ox O2 Delivery O2 Flow Rate FiO2 09/12/24 12:00 98.2 83 12 116/81 (93) 99 208.8 09/12/24 12:00 Mechanical Ventilator+ 30 30 Intake/Output Intake and Output 09/12/24 07:00 Intake Total 1151.0 ml Output Total 2400 ml Balance -1249.0 ml Intake Oral 25 ml IV Total 1126.0 ml Output Urine Total 2400 ml General Appearance: Other (intubated and sedated) Lungs: Clear to auscultation Cardiovascular: Regular rate, Normal S1, Normal S2 Abdomen: Soft, No tenderness Rectal: Deferred Genitourinary: No Apparent Abnormalities (Catheter) Skin: Dry, Other (LE swelling) Psych/Mental Status: Other (Unable to assess) Medications Current Medications Medications Dose Ordered Sig/Blanche Route Start Time Stop Time Status Last Admin Dose Admin Acetaminophen 650 mg Q6HP PRN PO 09/03/24 03:45 Sodium Chloride 10 ml Q8HR IV 09/03/24 06:00 09/12/24 06:03 10 ML Pantoprazole Sodium 40 mg DAILY IV 09/04/24 10:00 09/12/24 10:15 40 MG Furosemide 40 mg BIDD IV 09/03/24 18:00 09/12/24 06:03 40 MG Vancomycin HCl 0 ml @ 0 mls/hr UD IV 09/03/24 10:00 Levalbuterol HCl 1.25 mg Q6HR NEB 09/03/24 12:00 09/12/24 11:35 1.25 MG Ipratropium [place] 0.5 mg Q6HR NEB 09/03/24 12:00 09/12/24 11:35 0.5 MG Phenylephrine HCl 250 ml @ 30 mls/hr Q8H20M IV 09/04/24 01:00 UNV Meropenem 50 ml @ 17 mls/hr Q8HR IV 09/06/24 22:00 09/12/24 06:00 17 MLS/HR Enteral Nutritional Formula 1,000 ml 50ML/HR GT 09/07/24 10:15 09/07/24 15:17 1,000 ML Vancomycin HCl 100 ml @ 100 mls/hr Q24H IV 09/07/24 11:00 UNV Methylprednisolone Sodium Succinate 20 mg BID IV 09/07/24 22:00 09/12/24 10:15 20 MG Metoprolol Tartrate 1.25 mg Q6HPRN PRN IV 09/08/24 10:45 Hold 09/08/24 22:04 1.25 MG Norepinephrine Bitartrate 250 ml @ 3.75 mls/hr Q24H IV 09/09/24 07:15 09/10/24 05:15 7.5 MLS/HR Midazolam HCl 50 ml @ 1 mls/hr Q24H IV 09/09/24 07:15 09/12/24 00:03 4 MLS/HR Fentanyl Citrate 250 ml @ 2.5 mls/hr Q24H IV 09/09/24 07:15 09/12/24 08:23 12.5 MLS/HR Vancomycin HCl 150 ml @ 150 mls/hr DAILY@1800 IV 09/10/24 18:00 09/11/24 18:15 150 MLS/HR Amiodarone HCl 200 mg Q12HR PO 09/10/24 10:00 09/12/24 10:16 200 MG Laboratory Results Laboratory Tests 09/11/24 04:28 09/12/24 05:07 Urinalysis Test 09/03/24 11:31 Urine Color Yellow (Yellow) Urine Clarity Turbid (Clear) H Urine pH 8.5 (5.0-9.0) Urine Specific [place] 1.013 (1.001-1.035) Urine Protein Trace (Negative) H Urine Ketones Negative (Negative) Urine Blood Negative /uL (Negative) Urine Nitrite Negative (Negative) Urine Bilirubin Negative (Negative) Urine Urobilinogen Normal mg/dL (Negative) Urine Leukocyte Esterase Negative /uL (Negative) Urine RBC 4 /hpf (0 - 4) Urine Microscopic WBC 1 /HPF (0-5) Urine Squamous Epithelial Cells Few /hpf (<5) Urine Bacteria None seen /hpf (None Seen) Urine Hyaline Casts Mod /lpf (0 - 2) Urine Mucus Few (None Seen) Urine Glucose Normal mg/dL (Normal) Blood Gas Results Test 09/12/24 06:29 Arterial Blood pH 7.531 (7.350-7.450) FiO2 % 30.0 Microbiology Microbiology Date/Time Source Procedure Growth Status 09/09/24 13:06 Bronchial Washings Gram Stain Pending Resulted 09/09/24 13:06 Bronchial Washings Respiratory Culture - Preliminary Resulted 09/09/24 09:55 Blood Blood Culture - Preliminary NO GROWTH AFTER 72 HOURS OF INCUBATION. Resulted 09/03/24 11:31 Urine - [place] Urine Culture - Final Proteus mirabilis - ESBL Enterococcus faecalis Complete 09/03/24 10:20 Nose MRSA Screen - Final Complete Labs and/or images reviewed: Labs reviewed by me, Image(s) reviewed by me Assessment/Plan Assessment/Plan Impression: -acute hypoxic respiratory failure with mechanical ventilation -failure of weaning from mechanical ventilation -community-acquired pneumonia -complicated cystitis with ESBL -sepsis with shock -dementia -anemia of chronic disease Plan: Discussion made with the patient's family were bedside. Plans for compassionate extubation today. Pending pulp grinder and blender services. Prn Ativan and morphine as well as oxygen once extubated. Critical care time spent with patient discussing and formulating plan of care: 40 minutes. This does not include time spent performing procedures. This medical document was created using an electronic medical record system with [employer] dictation system. Although this document has been carefully reviewed, there may still be some phonetic and typographical errors. These areas are purely typographical due to imperfections of the software programs, and do not reflect any compromise in the patient's medical care. Plan discussed with: Patient, Daughter, Other (RN) Date of Service: Sep 12, 2024 Billing Provider: SANA DOYLE NP Common Visit Codes: [id number] CARE 30-74 MIN SANA DOYLE NP Sep 12, 2024 13:21
[2024-09-12] MEDS ORDERED: MORPHINE SULFATE INJ 2 MG/ml SYRG IV PRN (13:30)
--- NOTE | 2024-09-12 14:26 | DVHPN2 ---
Progress Note - Dictate Date Seen: Sep 12, 2024 Medical Necessity Reason Pt with a Central, PICC or Fol: Yes The following are medically ne: Central Line, Ware Catheter vital signs Vital Sign Date Time Temp Pulse Resp B/P (MAP) Pulse Ox O2 Delivery O2 Flow Rate FiO2 09/12/24 14:15 98.4 76 12 109/72 (84) 100 209.1 09/12/24 14:00 Mechanical Ventilator+ 30 30 Total Intake and Output 09/11/24 09/11/24 09/12/24 15:00 23:00 07:00 Intake Total 192.0 ml 542.0 ml 417.0 ml Output Total 850 ml 1550 ml Balance 192.0 ml -308.0 ml -1133.0 ml medications Current Medications Medications Dose Ordered Sig/Blanche Route Start Time Stop Time Status Last Admin Dose Admin Phenylephrine HCl 250 ml @ 30 mls/hr Q8H20M IV 09/04/24 01:00 UNV Vancomycin HCl 100 ml @ 100 mls/hr Q24H IV 09/07/24 11:00 UNV Lorazepam 1 mg Q1HP PRN IV 09/12/24 13:30 UNV Morphine Sulfate 1 mg Q1HP PRN IV 09/12/24 13:30 UNV laboratory and microbiology Laboratory Tests 09/12/24 05:07 09/11/24 04:28 Test 09/11/24 04:28 Range/Units Serum Glucose 113 H 74-106 mg/dL Assessment/Plan Impression Acute hypoxemic respiratory failure Acute COPD exacerbation Hx of Alzheimer's disease Pleural effusions Pneumonia NSTEMI Patient seen and examined in ICU Events On mechanical ventilation S/p re-intubation PEEP 5, FiO2 30% Labs and imaging reviewed ABG reviewed Management Vent support Titrate to maintain sats 90% or above family contemplating compassionate weaning Continue antibiotics F/u cultures Bronchodilators Monitor renal function Monitor electrolytes Supplement as needed Pressors as needed for hemodynamic support To maintain a mean arterial pressure of 65 mmHg Echo report reviewed F/u cardiology DVT prophylaxis DNR family leaning towards comfort Critical care time 35 minutes Dietary Evaluation Review Comments: 1) If patient remains NPO > 7 days, initiate EN/TPN to meet at least 75% of estimated daily needs 2) If GI route is preferred, consider Vital AF 1.2 @ 50 mL/hr goal rate as tolerated to meet increased protein needs. TF regimen will provide 1440 kcals, 90g Pro, and 973 mL per 24 hrs. Goal rate will provide ~ 86% estimated daily energy needs and ~76% estimated daily protein needs. 3) Advance patient to regular diet when medically feasible, pending BASS SINGER approval 4) Collect HbA1C 5) Refer to outpatient RD/CDCES for weight management 6) Follow-up with cardiology and pulmonology 7) Continue to monitor I&O, labs, and skin integrity Expected Outcomes/Goals: 1) patient to receive nutrition support within 7 days of NPO status 2) labs to improve 3) diet to advance 4) f/u in 2-3 days Plan discussed with: Other (rn) RICK VARGAS MD Sep 12, 2024 14:26
[2024-09-12] MEDS: LORazepam 2MG/ML-1ML VIAL IV PRN (15:26)
--- NOTE | 2024-09-12 17:03 | DVHPN2 ---
Subjective Terminally weaned Called to pronounce Reviewed: Care Plan, H&P, Labs Changes from previous H/P or p: Changes General: Per HPI Objective Vitals Vital Signs Date Time Temp Pulse Resp B/P (MAP) Pulse Ox O2 Delivery O2 Flow Rate FiO2 09/12/24 14:15 98.4 76 12 109/72 (84) 100 209.1 09/12/24 14:00 Mechanical Ventilator+ 30 30 Intake/Output Intake and Output 09/12/24 07:00 Intake Total 1151.0 ml Output Total 2400 ml Balance -1249.0 ml Intake Oral 25 ml IV Total 1126.0 ml Output Urine Total 2400 ml Cardiovascular: Other (No heart beat) Medications Current Medications Medications Dose Ordered Sig/Blanche Route Start Time Stop Time Status Last Admin Dose Admin Phenylephrine HCl 250 ml @ 30 mls/hr Q8H20M IV 09/04/24 01:00 UNV Vancomycin HCl 100 ml @ 100 mls/hr Q24H IV 09/07/24 11:00 UNV Lorazepam 1 mg Q1HP PRN IV 09/12/24 13:30 09/12/24 15:26 1 MG Morphine Sulfate 1 mg Q1HP PRN IV 09/12/24 13:30 Laboratory Results Laboratory Tests 09/11/24 04:28 09/12/24 05:07 Urinalysis Test 09/03/24 11:31 Urine Color Yellow (Yellow) Urine Clarity Turbid (Clear) H Urine pH 8.5 (5.0-9.0) Urine Specific [place] 1.013 (1.001-1.035) Urine Protein Trace (Negative) H Urine Ketones Negative (Negative) Urine Blood Negative /uL (Negative) Urine Nitrite Negative (Negative) Urine Bilirubin Negative (Negative) Urine Urobilinogen Normal mg/dL (Negative) Urine Leukocyte Esterase Negative /uL (Negative) Urine RBC 4 /hpf (0 - 4) Urine Microscopic WBC 1 /HPF (0-5) Urine Squamous Epithelial Cells Few /hpf (<5) Urine Bacteria None seen /hpf (None Seen) Urine Hyaline Casts Mod /lpf (0 - 2) Urine Mucus Few (None Seen) Urine Glucose Normal mg/dL (Normal) Blood Gas Results Test 09/12/24 06:29 Arterial Blood pH 7.531 (7.350-7.450) FiO2 % 30.0 Microbiology Microbiology Date/Time Source Procedure Growth Status 09/09/24 13:06 Bronchial Washings Gram Stain - Final Resulted 09/09/24 13:06 Bronchial Washings Respiratory Culture - Preliminary Resulted 09/09/24 09:55 Blood Blood Culture - Preliminary NO GROWTH AFTER 72 HOURS OF INCUBATION. Resulted 09/03/24 11:31 Urine - [place] Urine Culture - Final Proteus mirabilis - ESBL Enterococcus faecalis Complete 09/03/24 10:20 Nose MRSA Screen - Final Complete Assessment/Plan Assessment/Plan -acute hypoxic respiratory failure with mechanical ventilation -failure of weaning from mechanical ventilation -community-acquired pneumonia -complicated cystitis with ESBL -sepsis with shock -dementia -anemia of chronic disease Terminally weaned on 09/12/24 I was called to see the patient with a forementioned history for unresponsiveness. On exam the patient did not respond to verbal or physical stimuli. Absent heart rate and breath sounds. Absent peripheral pulses. Pupils are fixed and dilated. Patient pronounced at 1603, 09/12/2024 Plan discussed with: Daughter Date of Service: Sep 12, 2024 Billing Provider: KEYA POLANCO Common Visit Codes: CONSULT ONLY KEYA POLANCO Sep 12, 2024 17:03
--- NOTE | 2024-09-13 08:32 | DVHDS2 ---
Summary Date of Admission September 03, 2024 at 04:02 Date and Time of Expiration: Sep 12, 2024 16:03 Reason for Admission: Acute hypercapnic encephalopathy Wounds: Erythema on the sacrum was present Labs/Diagnostic Data: Laboratory Results Test 09/12/24 06:29 09/12/24 05:07 09/11/24 04:28 09/09/24 18:00 Blood Gas Specimen Type Arterial Blood Gas Sample Site Right radial Blood Gas Patient Temperature 37.0 Arterial Blood Date Drawn [id number] Arterial Blood pH 7.531 (7.350-7.450) Arterial Blood Partial Pressure CO2 39.6 mmHg (32.0-45.0) Arterial Blood Partial Pressure O2 80.3 mmHg (83.0-108.0) Arterial Blood HCO3 32.4 mmol/L (21.0-28.0) Arterial Blood Oxygen Saturation 95.6 % (94.0-98.0) Arterial Blood Base Excess 9.0 mmol/L (-2.0-3.0) Arterial Blood Oxyhemoglobin 93.7 % (94.0-98.0) Arterial Blood Carboxyhemoglobin 1.1 % (0.5-1.5) Arterial Blood Methemoglobin 0.9 % (0.0-1.5) Luis Test Modified Blood Gas Total Hemoglobin 8.70 g/dL (12.0-16.0) Blood Gas Set Respiration Rate 12.0 Blood Gas Modality Vent - ac FiO2 % 30.0 Blood Gas Tidal Volume 450.0 Blood Gas PEEP or CPAP 5.0 White Blood Count 7.3 10^3/uL (4.4-10.8) Red Blood Count 3.26 10^6/uL (4.0-5.20) Hemoglobin 8.6 g/dL (12.2-16.2) Hematocrit 26.4 % (36.0-46.0) Mean Corpuscular Volume 80.8 fL (80.0-100.0) Mean Corpuscular Hemoglobin 26.4 pg (28.0-32.0) Mean Corpuscular Hemoglobin Concent 32.7 g/dL (32.0-36.0) Red Cell Distribution Width 18.1 % (11.8-14.3) Platelet Count 166 10^3/uL (140-450) Mean Platelet Volume 8.3 fL (6.9-10.8) Neutrophils (%) (Auto) 90.5 % (37.0-80.0) Lymphocytes (%) (Auto) 3.5 % (10.0-50.0) Monocytes (%) (Auto) 5.7 % (0.0-12.0) Eosinophils (%) (Auto) 0.1 % (0.0-7.0) Basophils (%) (Auto) 0.2 % (0.0-2.0) Neutrophils # (Auto) 6.6 10 ^3/uL (1.6-8.6) Lymphocytes # (Auto) 0.3 10 ^3/uL (0.4-5.4) Monocytes # (Auto) 0.4 10 ^3/uL (0-1.3) Eosinophils # (Auto) 0 10 ^3/uL (0-0.8) Basophils # (Auto) 0 10 ^3/uL (0-0.2) Nucleated Red Blood Cells 0.2 % Creatinine 0.70 mg/dL (0.550-1.02) Glomerular Filtration Rate Calc 90 mL/min (>90) Sodium Level 143 mmol/L (136-145) Potassium Level 3.3 mmol/L (3.5-5.1) Chloride Level 98 mmol/L (98-107) Carbon Dioxide Level 39 mmol/L (20-31) Anion Gap 6 (5-15) Blood Urea Nitrogen 26 mg/dL (9-23) BUN/Creatinine Ratio 33.3 (10.0-20.0) Serum Glucose 113 mg/dL (74-106) Calcium Level 9.7 mg/dL (8.7-10.4) Magnesium Level 2.1 mg/dL (1.6-2.6) Blood Gas Critical Value Read Back Yes Blood Gas Notified Whom Dayami cardona md Blood Gas Notified Time [id number] Blood Gas Notified By Alem du electro tech Test 09/09/24 10:08 09/09/24 06:33 09/09/24 04:45 09/09/24 01:05 Vancomycin Level Trough 18.3 ug/mL (5-10) Blood Gas Spontaneous Rate 36 Blood Gas Spontaneous Tidal Volume 274 Blood Gas EPAP 5 Blood Gas IPAP 12 Total Bilirubin 2.2 mg/dL (0.2-1.0) Aspartate Amino Transferase (AST) 71 U/L (13-40) Alanine Aminotransferase (ALT) 47 U/L (7-40) Alkaline Phosphatase 78 U/L (46-116) Total Protein 6.7 g/dL (5.7-8.2) Albumin 3.8 g/dL (3.2-4.8) Specimen Drawn By Test 09/08/24 07:41 09/07/24 04:41 09/06/24 04:47 09/05/24 05:17 Blood Gas Pressure Support 8 Random Vancomycin Level 17.5 ug/mL (5-10) Digoxin Level 1.86 ng/mL (0.8-2) Platelet Estimate Decreased Anisocytosis (manual) Slight Microcytosis Slight [place] Cells Few Lactic Acid Level 0.9 mmol/L (0.4-2.0) Phosphorus Level 5.8 mg/dL (2.4-5.1) Test 09/04/24 05:09 09/04/24 05:03 09/03/24 15:45 09/03/24 11:31 POC Glucose 111 mg/dl (70-106) Giant Platelets Few Troponin I High Sensitivity 35 ng/L (</=34) Urine Color Yellow (Yellow) Urine Clarity Turbid (Clear) Urine pH 8.5 (5.0-9.0) Urine Specific [place] 1.013 (1.001-1.035) Urine Protein Trace (Negative) Urine Ketones Negative (Negative) Urine Blood Negative /uL (Negative) Urine Nitrite Negative (Negative) Urine Bilirubin Negative (Negative) Urine Urobilinogen Normal mg/dL (Negative) Urine Leukocyte Esterase Negative /uL (Negative) Urine RBC 4 /hpf (0 - 4) Urine Microscopic WBC 1 /HPF (0-5) Urine Squamous Epithelial Cells Few /hpf (<5) Urine Bacteria None seen /hpf (None Seen) Urine Hyaline Casts Mod /lpf (0 - 2) Urine Mucus Few (None Seen) Urine Glucose Normal mg/dL (Normal) Urine Opiates Screen Pos (NEGATIVE) Urine Fentanyl Screen Neg (NEGATIVE) Urine Barbiturates Screen Neg (NEGATIVE) Urine Phencyclidine Screen Neg (NEGATIVE) Urine Amphetamines Screen Neg (NEGATIVE) Urine Benzodiazepines Screen Pos (NEGATIVE) Urine Cocaine Screen Neg (NEGATIVE) Urine Cannabinoids Screen Pos (NEGATIVE) Test 09/03/24 07:07 09/03/24 04:57 09/03/24 04:30 09/03/24 01:40 Blood Gas Liter Flow 6.00 HIV (1&2) Antibody Negative (Negative) Influenza Type A Antigen Negative (Negative) Influenza Type B Antigen Negative (Negative) SARS-CoV-2 Antigen (Rapid) Negative (NEGATIVE) Vitamin B12 Level 2690 pg/mL (211-911) Vitamin D 25-Hydroxy 67.0 ng/mL (30.0-100) Folic Acid 38.61 ng/mL (>5.38) Test 09/03/24 01:38 09/03/24 01:29 Large Platelets Few D-Dimer, Quantitative 2.10 mg/L FEU (0.0-0.49) B-Type Natriuretic Peptide 82.77 pg/mL (0-100) Thyroid Stimulating Hormone (TSH) 2.81 uIU/mL (0.55-4.78) Plasma/Serum Blood Alcohol 5.8 mg/dL (<10) Venous Blood pH 7.192 (7.320-7.430) Venous Blood pCO2 at Patient Temp 77.2 mmHg (38.0-54.0) Venous Blood pO2 at Patient Temp < 36.5 mmHg (23.0-48.0) Venous Blood HCO3 29.0 mmol/L (22.0-29.0) Venous Blood Base Excess -1.5 mmol/L (-2.0-3.0) Other Laboratory Tests 09/12/24 05:07 09/11/24 04:28 Brief Hx & Hospital Course: This is a 74-year-old female with past medical history of COPD on home oxygen 2- 3 L, Alzheimer's dementia, anxiety, depression was brought in by EMS from [facility] nursing facility due to acute hypoxia. Patient has baseline dementia and confused. Information was gathered from chart reviewing and talking to the nursing staff. According to the staff the patient developed respiratory distress and become hypoxic around 4:00 p.m. at [facility] was desaturating to 70s and called the EMS . In the ED patient was also desaturating to 70s put on nasal cannula that did not relieved the hypoxia and started on BiPAP the patient was overnight BiPAP and in the morning ABG revealed severe respiratory acidosis, patient became more altered and was not able to maintain the airway and emergency intubation was done. Family was contracted before intubation but could not reach the family and emergency intubation was done to save the patient. Hospital course: Needed emergent intubation for acute hypercapnic encephalopathy likely . Patient was treated for acute exacerbation of chronic systolic heart failure, severely reduced left ventricular systolic function, EF 15% end stage dilated cardiomyopathy, acute on chronic COPD, aspiration pneumonia, paroxysmal AFib with secondary hypercoagulable state, few episodes of AFib with RVR, acute complicated UTI due to ESBL IV vancomycin as per pharmacy, IV meropenem 1 g Q 8 hours, IV Solu-Medrol 20 mg b.i.d., IV Lasix 40 mg b.i.d., IV dopamine dobutamine drip, IV amiodarone drip. patient was 1st extubated on 0 09/08/24 and was on BiPAP. The patient needed to reintubate again within 24 hours of post extubation due to severe respiratory distress and on chest x-ray total collapse of the left lung. Post intubation bronchoscopy did not reveal any mucus plug or thick secretion. Urine culture came back positive for ESBL. The patient is on IV vancomycin as per pharmacy, IV meropenem 1 g Q 8 hours, IV Lasix 40 mg b.i.d., oral amiodarone 100 mg b.i.d.. Anticoagulant was not able to start because the patient has thrombocytopenia. Despite the adequate medical management the patient respond to treatment was poor and had brief discussion with the patient next of kin granddaughter Misty about the patient condition and also the prognosis and family decided to change the coded status to modified DNR including no chest compression and defibrillation on 09/10/24. Family decided to terminal weaning on 09/12/2024 and the patient at 4:20 p.m. on 09/12/2024. Causes of : 1. Cardiopulmonary arrest 2. Aspiration pneumonia 3. Sepsis with septic shock due to pneumonia Diagnosis: Acute hypercapnic encephalopathy carbon dioxide narcosis H/O of Alzheimer's dementia Possible acute on chronic decompensated systolic heart failure Dilated Cardiomyopathy likely due to alcohol abuse disorder and on dobutamine drip NSTEMI type 2 likely secondary to supply/demand mismatch Paroxysmal atrial fibrillation with secondary hypercoagulable state Episodes of atrial fibrillation with RVR and on amiodarone drip History of coronary artery disease Acute hypercapnic/ hypoxic respiratory failure Acute exacerbation of chronic COPD Possible Gram-positive/Gram-negative community-acquired pneumonia Possible aspiration pneumonia Sepsis due to pneumonia Leukopenia, hypothermia and lactic acidosis likely secondary to sepsis Ruled out pulmonary embolism Mild left-sided pleural effusion Transaminitis likely due to sepsis Acute complicated UTI due to ESBL and Enterococcus UTI is not associated to [place] catheter Alcohol Abuse disorder Hyperglycemia likely due to steroid induced Leukopenia likely due to sepsis Chronic mild normocytic anemia likely due to anemia of chronic disease Ruled out DVT Possible Lymphedema of bilateral lower limb Consults/Reason for consult Cardiology and pulmonology were consulted Operations or Procedures PROCEDURE: CT CT ANGIO CHEST CONTRAST 09/03/2024 02:17 PM INDICATION: RULED OUT PULMONARY EMBOLISM COMPARISON: None TECHNIQUE: Coverage: Thorax IV contrast: Administered Phases: Arterial Multiplanar 3-D Maximum Intensity Projection images (MIP) reconstructions were created by the technologist in the coronal and sagittal planes as part of the CT angiography protocol. Adverse events: None Medication laboratory values were reviewed to verify the patient meets criteria for contrast administration. All CT scans at this medical facility are performed using dose modulation techniques as appropriate to a performed exam including the following: Automated exposure control was utilized; adjustment of the MA and/or KV according to patient size; and use of iterative reconstruction technique. Radiation dose: CTDIvol 8.88 mGy, DLP 386.39 mGy*cm. FINDINGS: Cardiovascular: No evidence of acute or chronic pulmonary emboli identified. The pulmonary arteries are mildly prominent which may reflect underlying pulmonary arterial hypertension. Aorta is normal in caliber. The heart is moderately enlarged. No pericardial effusion. Coronary artery calcification noted. Lungs: Moderate right and small left pleural effusions adjacent pulmonary opacities. Scattered ground-glass opacities noted in the bilateral lungs.. No pneumothorax. The airways are patent. The ETT ends above the level of pancho. Thyroid: Unremarkable. Esophagus: Unremarkable. Lymphatics: Mild mediastinal lymphadenopathy measuring up to 1.8 x 1.2 cm in the prevascular space. Bones/soft tissues: No acute abnormality. Mild depression of the superior and inferior endplates of several thoracic vertebrae likely related to Schmorl's node formation less than 10% loss of vertebral body height without retropulsion noted. Multilevel degenerative changes of the thoracic spine are noted. Upper abdomen: No acute abnormality. The enteric tube extends to the stomach. Other: None. IMPRESSION: 1. No evidence of acute pulmonary emboli. 2. Cardiomegaly with evidence of CHF, bilateral pleural effusions and pulmonary edema. The differential diagnosis for pulmonary opacities include pneumonia. 3. Mild mediastinal lymphadenopathy. EXAM: XR Chest, 1 View CLINICAL INDICATION: Mechanical ventilation TECHNIQUE: Frontal view of the chest. COMPARISON: XY CHEST PORTABLE on DOS: 09/07/24, XY CHEST PORTABLE on DOS: 09/06/24, XY CHEST PORTABLE on DOS: 09/05/24, XY CHEST PORTABLE on DOS: 09/04/24, XY CHEST XRAY 1 VIEW on DOS: 09/03/24 FINDINGS: LUNGS AND PLEURAL SPACES: See below. HEART: Cardiomegaly with mild congestion. MEDIASTINUM: Unremarkable. Normal mediastinal contour. BONES/JOINTS: Unremarkable. No acute fracture. TUBES, LINES AND DEVICES: Right internal jugular central venous catheter tip in the superior vena cava. The endotracheal tube (ETT) is in satisfactory position. Enteric tube tip in the stomach. OTHER FINDINGS: . IMPRESSION: Cardiomegaly with mild congestion. Final Diagnosis/Problems List Causes of : 1. Cardiopulmonary arrest 2. Aspiration pneumonia 3. Sepsis with septic shock due to pneumonia Diagnosis: Acute hypercapnic encephalopathy carbon dioxide narcosis H/O of Alzheimer's dementia Possible acute on chronic decompensated systolic heart failure Dilated Cardiomyopathy likely due to alcohol abuse disorder and on dobutamine drip NSTEMI type 2 likely secondary to supply/demand mismatch Paroxysmal atrial fibrillation with secondary hypercoagulable state Episodes of atrial fibrillation with RVR and on amiodarone drip History of coronary artery disease Acute hypercapnic/ hypoxic respiratory failure Acute exacerbation of chronic COPD Possible Gram-positive/Gram-negative community-acquired pneumonia Possible aspiration pneumonia Sepsis due to pneumonia Leukopenia, hypothermia and lactic acidosis likely secondary to sepsis Ruled out pulmonary embolism Mild left-sided pleural effusion Transaminitis likely due to sepsis Acute complicated UTI due to ESBL and Enterococcus UTI is not associated to [place] catheter Alcohol Abuse disorder Hyperglycemia likely due to steroid induced Leukopenia likely due to sepsis Chronic mild normocytic anemia likely due to anemia of chronic disease Ruled out DVT Possible Lymphedema of bilateral lower limb [facility] [facility] Sep 13, 2024 08:32
== END 2024-09-12 16:03 | DRG 870 ==
LOC: EDUNIT# 00:50 → ER 00:50 → EDBD 00:50 → OVERFLOW 04:02 → TELE-WESTW 06:59 → ICU CENTRL 10:00
PROVIDERS: ADMIT Internal Medicine Pulmonary Disease; ATTEND Emergency Medicine
PROC: 0BH17EZ Insertion of Endotracheal Airway into Trachea, Via Natural or Artificial Opening (ICD-10-PCS; principal; 2024-09-03)
PROC: 5A1955Z Respiratory Ventilation, Greater than 96 Consecutive Hours (ICD-10-PCS; 2024-09-03)
PROC: 02HV33Z Insertion of Infusion Device into Superior Vena Cava, Percutaneous Approach (ICD-10-PCS; 2024-09-03)
PROC: 0B9K8ZZ Drainage of Right Lung, Via Natural or Artificial Opening Endoscopic (ICD-10-PCS; 2024-09-03)
PROC: 5A09357 Assistance with Respiratory Ventilation, Less than 24 Consecutive Hours, Continuous Positive Airway Pressure (ICD-10-PCS; 2024-09-03)
PROC: 5A09357 Assistance with Respiratory Ventilation, Less than 24 Consecutive Hours, Continuous Positive Airway Pressure (ICD-10-PCS; 2024-09-08)
PROC: 0BH17EZ Insertion of Endotracheal Airway into Trachea, Via Natural or Artificial Opening (ICD-10-PCS; 2024-09-09)
PROC: 5A1945Z Respiratory Ventilation, 24-96 Consecutive Hours (ICD-10-PCS; 2024-09-09)
PROC: 0B9M8ZZ Drainage of Bilateral Lungs, Via Natural or Artificial Opening Endoscopic (ICD-10-PCS; 2024-09-09)
PROC: 5A09357 Assistance with Respiratory Ventilation, Less than 24 Consecutive Hours, Continuous Positive Airway Pressure (ICD-10-PCS; 2024-09-09)
DX: A41.50 Gram-negative sepsis, unspecified (principal); G93.41 Metabolic encephalopathy; I21.A1 Myocardial infarction type 2; J15.69 Pneumonia due to other Gram-negative bacteria; J96.22 Acute and chronic respiratory failure with hypercapnia; J96.21 Acute and chronic respiratory failure with hypoxia; J69.0 Pneumonitis due to inhalation of food and vomit; I50.23 Acute on chronic systolic (congestive) heart failure; R65.21 Severe sepsis with septic shock; J15.9 Unspecified bacterial pneumonia; E87.29 Other acidosis; I42.0 Dilated cardiomyopathy; J44.1 Chronic obstructive pulmonary disease with (acute) exacerbation; J44.0 Chronic obstructive pulmonary disease with (acute) lower respiratory infection; D63.8 Anemia in other chronic diseases classified elsewhere; D69.6 Thrombocytopenia, unspecified; I48.0 Paroxysmal atrial fibrillation; F11.90 Opioid use, unspecified, uncomplicated; F12.90 Cannabis use, unspecified, uncomplicated; F13.90 Sedative, hypnotic, or anxiolytic use, unspecified, uncomplicated; I36.1 Nonrheumatic tricuspid (valve) insufficiency; G30.9 Alzheimer's disease, unspecified; N30.90 Cystitis, unspecified without hematuria; I25.10 Atherosclerotic heart disease of native coronary artery without angina pectoris; Z20.822 Contact with and (suspected) exposure to COVID-19; I46.9 Cardiac arrest, cause unspecified; Z66 Do not resuscitate; F32.A Depression, unspecified; I11.0 Hypertensive heart disease with heart failure; F10.10 Alcohol abuse, uncomplicated; Y90.9 Presence of alcohol in blood, level not specified; T38.0X5A Adverse effect of glucocorticoids and synthetic analogues, initial encounter; R73.9 Hyperglycemia, unspecified; F02.80 Dementia in other diseases classified elsewhere, unspecified severity, without behavioral disturbance, psychotic disturbance, mood disturbance, and anxiety; R47.1 Dysarthria and anarthria; Z88.0 Allergy status to penicillin; Z99.81 Dependence on supplemental oxygen; I25.2 Old myocardial infarction
CPT/HCPCS: 31500; 36415; 36556; 36600; 71045; 71275; 80048; 80053; 80162; 80202; 80307; 80320; 81001; 82306; 82565; 82607; 82746; 82805; 82962; 83605; 83735; 83880; 84100; 84132; 84443; 84484; 85025; 85379; 86703; 86850; 86900; 86901; 87040; 87070; 87077; 87081; 87086; 87088; 87186; 87205; 87426; 87804; 93005; 93306; 93970; 94002; 94003; 94640; 94660; 96365; 96375; 99291; G0378; J2185; J2470; J3480